=== PATIENT | male | born 1955 | race Caucasian/White ===

== ENCOUNTER 2020-03-14 15:32 | Emergency (ER) | payer OTHER, SELFPAY ==
[2020-03-14 15:52] VITALS: BP 134/79; PULSE 111; RESP 16; TEMP 36.8; O2SAT 96; BMI 40.6
--- NOTE | 2020-03-14 18:42 | CTR_ITS ---
PROCEDURE INFORMATION: Exam: CT Abdomen And Pelvis With Contrast Exam date and time: 03/14/2020 7:34 PM Age: 64 years old Clinical indication: Nausea; Abdominal pain; Localized; Right lower quadrant (rlq); Additional info: Abd pain TECHNIQUE: Imaging protocol: Computed tomography of the abdomen and pelvis with intravenous contrast. Total images: 279 Radiation optimization: All CT scans at this facility use at least one of these dose optimization techniques: automated exposure control; mA and/or kV adjustment per patient size (includes targeted exams where dose is matched to clinical indication); or iterative reconstruction. Contrast material: VISI 320; Contrast volume: 95 ml; Contrast route: INTRAVENOUS (IV); COMPARISON: No relevant prior studies available. RADIATION DOSE METRICS: Total DLP (mGy-cm): 1978.46 FINDINGS: Lungs: Limited assessment of the lung bases fails to reveal evidence for active cardiopulmonary process. Liver: Advanced diffuse fatty infiltration of the liver with hepatomegaly. No visible hepatic mass or cystic structure. Gallbladder and bile ducts: Partial hepatization of the gallbladder. No visible form cholelithiasis. No visible intra or extrahepatic biliary ectasia. Pancreas: Pancreas unremarkable. No visible pancreatic ductal ectasia. Spleen: Mild splenomegaly. Adrenal glands: Adrenal glands reveal a left adrenal nodule dimensions 40 mm x 20 mm x 29 mm. Right adrenal gland unremarkable. Kidneys and ureters: Proximal right ureterolithiasis measuring 24 mm x 7.5 mm x 12 mm. Marked hydronephrosis and proximal hydroureter to the high grade obstructing stone. The stone is located 3.5 cm from the right ureteropelvic junction. No visible residual nephrolithiasis right kidney. Examination also reveals a ill-defined hypodense structure within the posterior parenchyma of the right renal superior pole dimensions 12 mm in diameter. This does not have the appearance of a simple cyst and may represent a renal cell carcinoma. Recommend follow-up with MRI of the kidney for further assessment and characterization. Left kidney unremarkable. No hydronephrosis or perinephric fluid. No visible nephrolithiasis. No visible left ureterolithiasis. Moderate right perinephric stranding and proximal Patricia ureteral fat stranding. No visible urinoma. Stomach and bowel: Assessment of the hollow viscus fails to reveal evidence of active or acute pathology. Nonobstructed bowel pattern. No visible acute diverticulitis. No visible adynamic or reactive ileus. Appendix: The appendix is visualized and appears noninflamed. Intraperitoneal space: Unremarkable. No free air. No significant fluid collection. Vasculature: Portal vein patent. The abdominal aorta is nonaneurysmal. Mild arterial sclerotic disease. Lymph nodes: Prominent periportal lymph nodes. A dominant node measures 12 mm in the short axis. Clinical significance indeterminate. No visible generalized abdominal or pelvic lymphadenopathy. Urinary bladder: Bladder unremarkable. No visible bladder stone. Reproductive: Mild prostate hypertrophy. Bones/joints: No visible acute osseous abnormality. Degenerative disc disease L5/S1. Degenerative disease of the spine. Spine facet arthrosis. Soft tissues: Unremarkable. Other findings: Obesity. CT/CT abdomen pelvis w con* [id number] IMPRESSION: 1. Proximal right ureterolithiasis measuring 24 mm x 7.5 mm x 12 mm. Marked hydronephrosis and proximal hydroureter to the high grade obstructing stone. The stone is located 3.5 cm from the right ureteropelvic junction. No visible residual nephrolithiasis right kidney. 2. Examination also reveals a ill-defined hypodense structure within the posterior parenchyma of the right renal superior pole dimensions 12 mm in diameter. This does not have the appearance of a simple cyst and may represent a renal cell carcinoma. Recommend follow-up with MRI of the kidney for further assessment and characterization. 3. Prominent periportal lymph nodes. A dominant node measures 12 mm in the short axis. Clinical significance indeterminate. 4. Advanced fatty infiltration of the liver with hepatomegaly. 5. Splenomegaly. 6. Left adrenal nodule dimensions 40 mm x 20 mm x 29 mm. In patient with no cancer history, consider resection. In patient with cancer history, consider biopsy or PET-CT. (Valentín Mims, ACR White Paper, 2017). Radiation Dose CTDIVOL = (mGy): DLP = 1978.46 (mGy-cm)
--- NOTE | 2020-03-14 18:47 | ED_ITS ---
HPI - Abdominal Pain General: Chief Complaint: Abdominal Pain Stated Complaint: abd pain Time Seen by Provider: 03/14/20 18:10 Source: patient Mode of arrival: ambulatory Limitations: no limitations History of Present Illness: HPI narrative: 64-year-old male states been having right lower quadrant abdominal pain over the last 2 days. States started yesterday and let up through the night but is worsened today. States pain is a 6 out of 10 is worse with palpation. He has had some nausea denies any vomiting or diarrhea. He denies any fevers. MD elicited complaint: abdominal pain Location: RLQ Associated Symptoms: Denies chills, dysuria and fever(s) Review of Systems Const: Denies: fever(s), chills, body aches or change in appetite Eyes: Denies: blurry vision or eye discomfort ENMT: Denies: throat pain or dental pain Card: Denies: chest pain Resp: Denies: dyspnea GI: Reports: abdominal pain : Denies: dysuria Musc: Denies: neck pain or back pain Skin/Breast: Denies: rash Neuro: Denies: headache(s) Psych: Denies: depression Denny/Lymph: Denies: easy bruising All/Imm: Denies: urticaria Physical Exam Const: COMMON NORMALS: no acute distress, patient oriented x3 and healthy appearing HENMT: COMMON NORMALS: normocephalic and atraumatic HEAD & SCALP: normocephalic and atraumatic Eye: COMMON NORMALS: Equal, round and reactive pupils present and EOMs intact bilaterally PUPIL: Yes Equal, round and reactive pupils present Neck/C-Spine: COMMON NORMALS: full ROM and supple Chest: COMMONS NORMALS: normal inspection of the chest and normal palpation of entire chest wall Resp: COMMON NORMALS: normal respiratory effort, No retractions, No use of ac cessory muscles and clear to auscultation bilaterally AUSCULTATION: clear to auscultation bilaterally Cardio: COMMON NORMALS: regular rate, regular rhythm and No murmurs present (Cardio) RATE: regular rate RHYTHM: regular rhythm GI: COMMON NORMALS: Normal to inspection, nondistended, normoactive bowel sounds present, Soft to palpation and no masses PALPATION: Yes Soft to palpation OTHER: Slight right lower quadrant tenderness Extremity: COMMON NORMALS: normal to inspection and full ROM Neuro: COMMON NORMALS: patient oriented x3, moves all extremities and no focal motor deficits Psych: COMMON NORMALS: mental status grossly normal, Normal thought process present and cooperative THOUGHT PROCESS: Normal thought process present Skin: COMMON NORMALS: no rashes or lesions noted and no wounds GENERAL SKIN EXAM: no rashes or lesions noted Course Vital Signs: Vital signs: Vital Signs Temperature 98.2 F 03/14/20 15:52 Pulse Rate 90 03/14/20 21:05 Respiratory Rate 16 03/14/20 15:52 Blood Pressure 148/80 03/14/20 21:05 Pulse Oximetry 97 03/14/20 21:05 MDM - Abdominal Pain MDM Narrative: Medical decision making narrative: Patient presents here with a quite large kidney stone I spoke to Dr. Elizalde will get him on the OR schedule for Thursday. Patient here is completely pain-free and creatinine is normal. We will get patient set up for follow-up and informed him to n.p.o. after midnight on Thursday likely is can have the stone removed on Thursday. He is return to ER if he has any pain. He understands and agrees to plan. Lab Data: Labs: Lab Results 03/14/20 03/14/20 Range/Units 19:15 19:15 WBC 12.6 H (4.0-10.0) 10^3/ uL RBC 4.92 (4.1-5.3) 10^6/u L Hgb 14.3 (11.7-16.6) g/dL Hct 42.8 (42.0-52.0) % MCV 87.0 (80-94) fL MCH 29.1 (28.0-34.0) pg MCHC 33.4 (30.0-36.0) g/dL RDW 13.5 (12.1-15.1) % Plt Count 225 (130-400) 10^3/c mm MPV 8.7 (7.4-10.4) fL Neut % (Auto) 76.6 % Lymph % (Auto) 15.3 % [place] % (Auto) 6.8 % Eos % (Auto) 0.6 % Baso % (Auto) 0.2 % Neut # (Auto) 9.65 H (1.8-7.7) 10^3/u L Lymph # (Auto) 1.9 (0.8-4.8) 10^3/u L [place] # (Auto) 0.9 (0.2-0.9) 10^3/u L Eos # (Auto) 0.1 (0.0-0.8) 10^3/u L Baso # (Auto) 0.0 (0.0-0.1) 10^3/u L Nucleated RBC % (a uto) 0 % Nucleated RBCs # 0.0 /100WBC Sodium 132 L (136-145) mmol/L Potassium 3.8 (3.5-5.1) mmol/L Chloride 96 L (98-107) mmol/L Carbon Dioxide 26 (22-29) mmol/L Anion Gap 13.8 (5-19) BUN 16 (8-23) mg/dL Creatinine 1.6 H (0.7-1.2) mg/dL GFR Calculation 43.7 L (90-130) mL/min Glucose 181 H (65-115) mg/dL Calculated Osmolal ity 280 L (285-295) mOsm/k g Calcium 9.4 (8.5-10.5) mg/dL Total Bilirubin 0.8 (0.15-1.2) mg/dL AST 13 (0-40) U/L ALT 23 (0-41) U/L Alkaline Phosphata se 72 (40-130) IU/L Total Protein 7.4 (6.6-8.7) g/dL Albumin 3.9 (3.5-5.2) g/dL Globulin 3.5 (1.3-4.6) g/dL Lipase 21 (13-60) U/L Imaging Data ^: CT Abd/Pel: Radiologist's impression: [address] [address] [address] Scan Report Signed with Addenda Patient: Aiden Choudhury Unit #: [id number] : [id number] Age/Sex: 64 / M ADM Date: 03/14/20 Loc: ER Room/Bed: Attending Dr: Ordering Provider/Ordering MD: Veena Rangel MD Date of Service: 03/14/20 Procedure(s): CT abdomen pelvis w con* [id number] Accession Number(s): [id number] Report Number: [id number]/CT abdomen pelvis w con* [id number] THIS REPORT CONTAINS FINDINGS THAT MAY BE CRITICAL TO PATIENT CARE. The findings were verbally communicated via telephone conference with veena Rangel at 9:06 PM [employer] on 03/14/2020. The findings were acknowledged and understood. Radiation Dose CTDIVOL = (mGy): DLP = 1977.46 (mGy-cm) Addendum Dictated By: Corbin Damon Addendum Signed By: Corbin Damon Signed Date/Time: 03/14/20 211 7 Addendum Cosigned By: PROCEDURE INFORMATION: Exam: CT Abdomen And Pelvis With Contrast Exam date and time: 03/14/2020 7:34 PM Age: 64 years old Clinical indication: Nausea; Abdominal pain; Localized; Right lower quadrant (rlq); Additional info: Abd pain TECHNIQUE: Imaging protocol: Computed tomography of the abdomen and pelvis with intravenous contrast. Total images: 279 Radiation optimization: All CT scans at this facility use at least one of these dose optimization techniques: automated exposure control; mA and/or kV adjustment per patient size (includes targeted exams where dose is matched to clinical indication); or iterative reconstruction. Contrast material: VISI 320; Contrast volume: 95 ml; Contrast route: INTRAVENOUS (IV); COMPARISON: No relevant prior studies available. RADIATION DOSE METRICS: Total DLP (mGy-cm): 1977.46 FINDINGS: Lungs: Limited assessment of the lung bases fails to reveal evidence for active cardiopulmonary process. Liver: Advanced diffuse fatty infiltration of the liver with hepatomegaly. No visible hepatic mass or cystic structure. Gallbladder and bile ducts: Partial hepatization of the gallbladder. No visible form cholelithiasis. No visible intra or extrahepatic biliary ectasia. Pancreas: Pancreas unremarkable. No visible pancreatic ductal ectasia. Spleen: Mild splenomegaly. Adrenal glands: Adrenal glands reveal a left adrenal nodule dimensions 40 mm x 20 mm x 29 mm. Right adrenal gland unremarkable. Kidneys and ureters: Proximal right ureterolithiasis measuring 24 mm x 7.5 mm x 12 mm. Marked hydronephrosis and proximal hydroureter to the high grade obstructing stone. The stone is located 3.5 cm from the right ureteropelvic junction. No visible residual nephrolithiasis right kidney. Examination also reveals a ill-defined hypodense structure within the posterior parenchyma of the right renal superior pole dimensions 12 mm in diameter. This does not have the appearance of a simple cyst and may represent a renal cell carcinoma. Recommend follow-up with MRI of the kidney for further assessment and characterization. Left kidney unremarkable. No hydronephrosis or perinephric fluid. No visible nephrolithiasis. No visible left ureterolithiasis. Moderate right perinephric stranding and proximal Patricia ureteral fat stranding. No visible urinoma. Stomach and bowel: Assessment of the hollow viscus fails to reveal evidence of active or acute pathology. Nonobstructed bowel pattern. No visible acute diverticulitis. No visible adynamic or reactive ileus. Appendix: The appendix is visualized and appears noninflamed. Intraperitoneal space: Unremarkable. No free air. No significant fluid collection. Vasculature: Portal vein patent. The abdominal aorta is nonaneurysmal. Mild arterial sclerotic disease. Lymph nodes: Prominent periportal lymph nodes. A dominant node measures 12 mm in the short axis. Clinical significance indeterminate. No visible generalized abdominal or pelvic lymphadenopathy. Urinary bladder: Bladder unremarkable. No visible bladder stone. Reproductive: Mild prostate hypertrophy. Bones/joints: No visible acute osseous abnormality. Degenerative disc disease L5/S1. Degenerative disease of the spine. Spine facet arthrosis. Soft tissues: Unremarkable. Other findings: Obesity. CT/CT abdomen pelvis w con* [id number] IMPRESSION: 1. Proximal right ureterolithiasis measuring 24 mm x 7.5 mm x 12 mm. Marked hydronephrosis and proximal hydroureter to the high grade obstructing stone. The stone is located 3.5 cm from the right ureteropelvic junction. No visible residual nephrolithiasis right kidney. 2. Examination also reveals a ill-defined hypodense structure within the posterior parenchyma of the right renal superior pole dimensions 12 mm in diameter. This does not have the appearance of a simple cyst and may represent a renal cell carcinoma. Recommend follow-up with MRI of the kidney for further assessment and characterization. 3. Prominent periportal lymph nodes. A dominant node measures 12 mm in the short axis. Clinical significance indeterminate. 4. Advanced fatty infiltration of the liver with hepatomegaly. 5. Splenomegaly. 6. Left adrenal nodule dimensions 40 mm x 20 mm x 29 mm. In patient with no cancer history, consider resection. In patient with cancer history, consider biopsy or PET-CT. (Valentín Mims, ACR White Paper, 2017). Discharge Plan Discharge Patient Disposition: Home Clinical Impression: Kidney stone Condition: Stable Prescriptions: [place] 5-325 mg tablet 1 tab PO Q6H PRN (Reason: pain) Qty: 14 RF: 0 Zofran 4 mg tablet 4 mg PO QID PRN (Reason: nausea and vomiting) Qty: 14 RF: 0 Discharge Orders: Discharge ED (Routine); Ordered 03/14/20 Ordered By: Veena Rangel Referrals: Max Elizalde MD [Physician] - 1-3 days Discharge Diet: Advance as tolerated Discharge Activity: Resume usual activity Patient Instructions: Kidney Stones (ED) Coding Level of Care Code ED Exceptional Needs Teacher for Chg Fwd Exam Comprehensive
[2020-03-14] MEDS: sodium chloride 0.9% 1,000 ML 999 ML IV (19:18)
[2020-03-14 19:23] VITALS: BP 120/78; PULSE 98; O2SAT 96
[2020-03-14 19:29] LABS: Basophils % 0.2 %; Eosinophils # 0.1 10^3/uL (0.0-0.8); Eosinophils % 0.6 %; Hematocrit 42.8 % (42.0-52.0); Hemoglobin 14.3 g/dL (11.7-16.6); Lymphocytes # 1.9 10^3/uL (0.8-4.8); Lymphocytes % 15.3 %; Mean Corpuscular HGB Conc 33.4 g/dL (30.0-36.0); Mean Corpuscular Hemoglobin 29.1 pg (28.0-34.0); Mean Platelet Volume 8.7 fL (7.4-10.4); Monocytes # 0.9 10^3/uL (0.2-0.9); Monocytes % 6.8 %; Neutrophils # 9.65 10^3/uL (1.8-7.7); Neutrophils % 76.6 %; Nucleated Red Blood Cells % 0 %; Platelet Count 225 10^3/cmm (130-400); Red Blood Count 4.92 10^6/uL (4.1-5.3); Red Cell Distribution Width 13.5 % (12.1-15.1); White Blood Count 12.6 10^3/uL (4.0-10.0)
[2020-03-14 19:50] LABS: Alanine Aminotransferase 23 U/L (0-41); Albumin Level 3.9 g/dL (3.5-5.2); Alkaline Phosphatase 72 IU/L (40-130); Anion Gap 13.8 (5-19); Aspartate Amino Transferase 13 U/L (0-40); Blood Urea Nitrogen 16 mg/dL (8-23); Calcium 9.4 mg/dL (8.5-10.5); Carbon Dioxide 26 mmol/L (22-29); Chloride 96 mmol/L (98-107); Globulin 3.5 g/dL (1.3-4.6); Glomerular Filtration Rate 43.7 mL/min (90-130); Glucose 181 mg/dL (65-115); Lipase 21 U/L (13-60); Osmolality Calculated 280 mOsm/kg (285-295); Potassium 3.8 mmol/L (3.5-5.1); Sodium 132 mmol/L (136-145); Total Bilirubin 0.8 mg/dL (0.15-1.2); Total Protein 7.4 g/dL (6.6-8.7)
--- NOTE | 2020-03-14 19:52 | PC.PHAR ---
pt states he takes benicar (unknown strength), metformin 1000 mg daily, glimeperide (unknown strength) 2 tablets daily, Januvia 100mg daily, Lantus 35 units QAM & 40 units QPM. Tried contacting and transferred multiple times without any help. [facility].
[2020-03-14 20:24] VITALS: BP 148/80; PULSE 90; O2SAT 96
[2020-03-14] MEDS: iodixanol 320 mg/mL 100mL Btl IV (20:42)
[2020-03-14 21:05] VITALS: BP 148/80; PULSE 90; O2SAT 97
[2020-03-14 21:24] LABS: Add Urine Microscopic? YES; Bilirubin Urine Neg (Negative); Glucose Urine UA Trace (Normal); Ketones Urine Negative (Negative); Leukocyte Esterase Urine Negative (Negative); Nitrate Urine Negative (Negative); Protein Urine Neg (Negative); Urine Appearance Clear (CLEAR); Urine Color Yellow (Yellow); Urobilinogen Urine 1 mg/dL (Negative); pH Urine 5 (5-7)
[2020-03-14 21:26] LABS: Blood Urine 2+ (Negative); WBC Urine 0-4 /hpf (0-5)
[2020-03-14 21:27] LABS: Add Urine Culture? No; Bacteria Urine TRACE /hpf; Squamous Epithelial Cell Urine 0-4 /hpf (0-5)
[2020-03-14 21:43] VITALS: BP 148/80; PULSE 89; O2SAT 97
--- NOTE | 2020-03-15 14:07 | DCPLANNER ---
production quality manager had message to schedule a follow up appointment for patient with Dr. Elizalde. production quality manager called the office of Dr. Elizalde, spoke with Emma. Patient had a follow up appointment scheduled for 03.15.20 and patient did attend the appointment.
[2020-03-15 22:16] LABS: Coronavirus Test Green County Not Detected
== END 2020-03-14 21:44 | disposition home or self-care (01) ==
PROVIDERS: Physician Assistant; Emergency Provider Emergency Medicine
DX: N20.0 Calculus of kidney (principal)
CPT/HCPCS: 12345; 74177; 80053; 81001; 83690; 85025; 87635; 96360; 99283; J7030; Q9967

== ENCOUNTER 2020-03-15 10:17 | Outpatient (CLI) | payer OTHER, SELFPAY ==
--- NOTE | 2020-03-15 10:19 | XR_ITS ---
WS: [id number] KUB, 03/15/2020 Clinical Data: KIDNEY STONE Comparison: CT abdomen and pelvis, 03/14/2020 Findings: There is still contrast material within the dilated right renal pelvis. There is a right renal nephro gram. The right ureter is dilated down to the right fourth transverse process. There is contrast in t he bladder. The left kidney shows a mild nephrogram. XR/XR KUB [id number] Impression: 1. Dilated right renal pelvis and proximal right ureter. 2. The right ureteral calculus is probably at the level of the right fourth tra nsverse process.
== END 2020-03-15 10:18 | disposition home or self-care (01) ==
LOC: RAD 10:19
PROVIDERS: PCP Family Medicine; Visit Provider Nurse Practitioner Family
DX: N20.0 Calculus of kidney (principal); N20.1 Calculus of ureter
CPT/HCPCS: 74018; 81003

== ENCOUNTER 2020-03-19 13:08 | Day surgery (SDC) | payer OTHER, SELFPAY ==
[2020-03-16 10:41] VITALS: BMI 40.6
[2020-03-19] VITALS (8 sets, daily range): BP systolic 133–156; BP diastolic 73–90; PULSE 86–96; RESP 15–18; TEMP 36.3–36.4; O2SAT 94–99
--- NOTE | 2020-03-19 13:14 | XRR_ITS ---
PROCEDURE INFORMATION: Exam: XR Abdomen, 1 View Exam date and time: 03/19/2020 1:15 PM Age: 64 years old Clinical indication: Screening exam; Other: Preop right eswl; Prior surgery; Surgery type: Litho TECHNIQUE: Imaging protocol: XR of the abdomen. Views: Frontal supine view of the abdomen. 1 View. COMPARISON: CR XR KUB [id number] 03/15/2020 10:28 AM FINDINGS: Gastrointestinal tract: Normal. No bowel dilation. Organs: There is residual contrast material in the hydronephrotic left renal pelvis and dilated proximal right ureter. On the recent CT scan a calculus was seen in the right ureter at the L3-L4 level but it is difficult to identify on these radiographs due to the presence of the contrast. Bones/joints: Degenerative changes are present in the spine with joint space narrowing and sclerosis. XR/XR KUB [id number] IMPRESSION: Persistent right hydronephrosis and proximal right hydroureter.
--- NOTE | 2020-03-19 14:09 | ANES.PREANE2 ---
Pre-Anesthetic Assessment Pre-Anesthetic Assessment: Height/Weight: Height 1.75 m Weight 124.738 kg Temp Pulse Resp BP Pulse Ox 97.5 F L 89 18 145/90 97 03/19/20 13:49 03/19/20 13:49 03/19/20 13:49 03/19/20 13:49 03/19/20 13:49 Preop Diagnosis: Right proximal obstructing ureteral stone Proposed Procedure: Operation Date: 03/19/20 14:40 Proposed Procedures p right Cystoscopy [id number](Right) - Max Elizalde MD s Ureteral Stent Placement(Not Applicable) - Max Elizalde MD s ESWL(Not Applicable) - Max Elizalde MD Was Beta Zeynep taken within 24 hours: N/A Last intake: Intake Last Liquid Date 03/19/20 Last Liquid Time 11:00 Last Solid Date 03/18/20 Last Solid Time 14:00 Social: Social History: No alcohol and No tobacco Exam: Pre-Anes Outpt Exam: alert, oriented x 3, clear to auscultation bilaterally and regular rate & rhythm Airway: Submandibular: WNL Cervical ROM: WNL MP: 2 Dentition: Full CV/HEM: CV/HEM: HTN : Comments: Kidney stones Metabolic: Metabolic: DM and Morbid obesity Anesthetic Plan: ASA status: 3 Anesthesia: General PFS Anesthesia PFSH: Medical History Right ureteral stone Family History Other Cancer Diabetes Social History Smoking and tobacco status: current every day smoker cigarettes Alcohol intake: never Marital status: Current occupational status: retired Data Anesthesia Cardiac Studies: No Data to Display
[2020-03-19 14:10] LABS: Glucose Point of Care 137 mg/dL (70-110)
[2020-03-19] MEDS: sodium chloride 0.9% 1,000 ML 30 ML IV (14:11)
--- NOTE | 2020-03-19 14:51 | W.PM.OPSUD ---
Surgery/Procedure H&P Update DATE OF PROCEDURE: March 19, 2020 DATE H&P PERFORMED: 03/19/20 H&P UPDATE INFORMATION: I have reviewed H&P completed within last 30 days, I have examined patient prior to procedure, No changes to prior documentation and H&P is in [facility] on date indicated CHANGES TO PREVIOUS DOCUMENTATION: HPI: Patient still experiencing some right-sided pain from the stone identified on CT scan and follow-up KUB in the office when seen by Nisreen Ma. No fever or chills. No spontaneous passage. KUB from this morning was reviewed and shows that he still has a significant dilated system with retained contrast from his CT scan last week. The stone is not readily identifiable but it appears to be located at the point of distal contrast location. Past medical family social history unchanged. Denies any ongoing blood thinners aspirin Aleve Motrin etc. Review of systems: Constitutional: No fever no chills HEENT: No change in vision change in hearing Cardiovascular: Denies chest pains or palpitations Respiratory: No shortness of breath wheezes or labored respiration. Gastrointestinal: Denies nausea or vomiting. No changes in bowel habits Musculoskeletal: No deformity. Skin: Denies jaundice rashes or lesions Neurologic: Denies unilateral weakness Psychiatric: Denies anxiety or changes in mental status Hematologic lymphatic: Denies abnormal bruising or bleeding. Physical exam: General: Alert, no acute distress, pleasant cooperative throughout exam HEENT atraumatic normocephalic Neck: Good range of motion no obvious masses Cardiovascular: Regular rate and rhythm. No obvious murmurs. Peripheral vascular: No significant edema Respiratory: Unlabored, no audible wheezes, good air movement., Abdomen: Soft, tenderness in his right upper quadrant right CVA area. Normal active bowel sounds Skin: No jaundice rashes or lesions noted. Neurologic: No slurred speech, seizure-like activity: Hematologic lymphatic: No bruises no active bleeding Psychiatric: Normal mental status, good cognitive function. Impression: Large right mid ureteral stone with obstruction and retained contrast Plan: Extracorporeal shockwave lithotripsy to right mid ureteral stone with stent placement. PREOP DIAGNOSIS: Right proximal obstructing ureteral stone PLANNED PROCEDURE: Operation Date: 03/19/20 14:40 Proposed Procedures p right Cystoscopy [id number](Right) - Max Elizalde MD s Ureteral Stent Placement(Not Applicable) - Max Elizalde MD s ESWL(Not Applicable) - Max Elizalde MD
--- NOTE | 2020-03-19 15:01 | PM.OP ---
Operative Report Date of procedure: March 19, 2020 Pre-op Diagnosis: Right proximal obstructing ureteral stone Post-op diagnosis: same Procedure Done: 1. Extracorporeal shockwave lithotripsy, RIGHT ureteral calculus 2. Cystoscopy, right ureteral stent placement Implants: 7 Guatem[place] by 28 cm double-pigtail stent no string Pathology: none sent Surgeon: Fide First Assistant Manager: Lithotripsy Registration Specialist: Juan Diego Tarango Anesthesia: General Estimated blood loss: None Urine output: Not measured Complications: None Findings: Stone was not readily identifiable on fluoroscopy but the column of contrast retained after last week CT scan pointed to the level of the stone identified on CT scan. The exact location of the stone was not absolute and for that reason it was decided to inject contrast from below which showed the large stone consistent with the findings seen on CT scan and allowed direct focus on the stone. 2500 shocks administered with excellent change. Contrast injected periodically to confirm location and response. Condition: stable Disposition: PACU Brief History: Mr. Choudhury is a very pleasant 64-year-old white male who was seen in the emergency department last week with a large roughly 2 cm right ureteral calculus with severe obstructive changes. No evidence of infection. Renal function was well-preserved. He was followed up by my nurse practitioner Nisreen Ma on the following day or so and ultimately was decided to proceed with shockwave therapy with stent placement. On KUB preoperatively today there was still retained contrast. Procedure: After routine preoperative evaluation examination and obtaining of informed consent he was taken to the operating suite on 03/19/2020 where general anesthesia was administered without difficulty after appropriate timeout was performed, SCDs confirmed to be functioning, preoperative antibiotics administered, beta-lulu protocol confirmed. Prepped and draped in usual sterile fashion in dorsolithotomy position paying careful attention to avoiding pressure points. 21 Guatem[place] cystoscope with 30 degree lens was introduced to the urethral meatus and advanced into the bladder under videoscopy. Bladder was systematically examined. No stone was identified. A right retrograde ureteropyelogram was performed: Contrast was injected through an 8 [place] cone-tipped catheter demonstrating a normal distal course and caliber of the ureter. A large filling defect was noted at the proximal ureter in the expected position consistent with a stone seen on CT scan. Only a small amount of contrast could be manipulated proximal to the stone. This position was maintained with the cystoscope removed and the open-ended ureteral catheter left indwelling for periodic reinjection of contrast to confirm position. The stone was demonstrated to show significant early change with shockwave therapy and a total of 2500 shocks were administered with excellent change as confirmed via contrast injection and easily up into the kidney with no longer persistence of a filling defect consistent with a stone. Flexible tip guidewire was advanced up the right ureter and easily bypassed the area of therapy. A 7 [place] by 28 cm double-pigtail stent was advanced over the guidewire through the cystoscope into appropriate position as confirmed via fluoroscopy and cystoscopy. Bladder was drained. The final shockwaves were administered and the procedure completed. He tolerated the procedure well without complications and was awakened in the operating room and returned to the recovery in stable condition. PLANS: 1. Anticipate discharge from outpatient surgery 2. Follow-up with CT scan stone protocol in approximately 2 weeks. 3. When BMP is available and potassium is confirmed in the normal range we will initiate POTASSIUM CITRATE for dissolution therapy and uric acid stone prevention strategy.
[2020-03-19] MEDS: iohexol 300 mg/mL 50 mL Btl (OR ONLY) XX (15:36)
[2020-03-19 16:01] LABS: Blood Urea Nitrogen 18 mg/dL (8-23); Calcium 9.3 mg/dL (8.5-10.5); Carbon Dioxide 23 mmol/L (22-29); Chloride 96 mmol/L (98-107); Glucose 146 mg/dL (65-115); Osmolality Calculated 275 mOsm/kg (285-295); Sodium 130 mmol/L (136-145)
[2020-03-19 16:12] LABS: Anion Gap 15.1 (5-19); Potassium 4.1 mmol/L (3.5-5.1)
--- NOTE | 2020-03-19 16:59 | ANE.PACU2 ---
Inpatient post-anesthesia follow up: Airway intact: Yes Vital signs: Temperature 97.6 F Pulse Rate 86 Respiratory Rate 18 Blood Pressure 144/73 Pulse Oximetry 97 Oxygen Delivery Me thod Room Air Oxygen Flow Rate 8 Fraction of Inspir ed Oxygen Hydration adequate: Yes Nausea and vomiting: No Pain level: 1 Mental status: Baseline
== END 2020-03-19 17:11 | disposition home or self-care (01) ==
PROVIDERS: PCP Family Medicine; Visit Provider Urology
PROC: 0TJB8ZZ Inspection of Bladder, Via Natural or Artificial Opening Endoscopic (ICD-10-PCS; CPT 52000; principal; 2020-03-19 14:40)
PROC: (CPT 50605; 2020-03-19 14:40)
PROC: (CPT 50590; 2020-03-19 14:40)
DX: N20.1 Calculus of ureter (principal); I10 Essential (primary) hypertension; E11.9 Type 2 diabetes mellitus without complications; E66.01 Morbid (severe) obesity due to excess calories; Z68.41 Body mass index [BMI] 40.0-44.9, adult; F17.210 Nicotine dependence, cigarettes, uncomplicated; Z79.891 Long term (current) use of opiate analgesic
CPT/HCPCS: 50590; 52332; 12345; 36415; 36416; 74018; 80048; 82365; 82962; 88300; C2625; J0690; J2405; J2704; J2710; J3010; J3490; J7030

== ENCOUNTER 2020-04-03 08:48 | Outpatient (CLI) | payer OTHER, SELFPAY ==
--- NOTE | 2020-04-03 10:30 | CT_ITS ---
WS: [id number] CT ABDOMEN PELVIS TECHNIQUE: Noncontrast CT of the abdomen and pelvis with coronal and sagittal reformatted images. CLINICAL INFORMATION: URETERAL STONE COMPARISON: CT March 14, 2020 DLP: 2010.[address] scans at [facility] use at least one of these dose optimization techniques: automat ed exposure control; mA and/or kV adjustment per patient size (includes targeted exams where dose is matched to clinical indication); or iterative reconstruction. FINDINGS: Diffuse fatty infiltration the liver. Hepatomegaly. Splenomegaly. Stable left adrenal nodules. Interv al placement of right double-J ureteral stent in good position. Fragmented right ureteral calculus al dominic the proximal right ureter and distal ureter near the UVJ. No significant hydronephrosis today. Re sidual perinephric inflammatory stranding. Stable indeterminate low-attenuation lesion involving the superior pole right kidney. Prominent periportal and upper abdominal lymph nodes nonspecific but may be reactive. No hydronephrosis in the left kidney. Small fragmented stones in the bladder. Prominent prostate raheem uring 4.1 cm in maximum dimension. Normal colon. Normal caliber abdominal aorta. Fatty atrophy of the pancreas. Small splenule. No free fluid in the abdomen or pelvis. Lung bases are well aerated. Small fibrotic opacity right lower lobe. Disc osteophyte complexes L3-L5 with moderate central canal steno sis. Fusion of the L5-S1 disc space. CT/CT kidney stone [id number] IMPRESSION: 1. Right double-J ureteral stent in good position. Hydronephrosis has essentia lly resolved. 2. Residual inflammatory stranding about the right kidney. Indeterminant low-a ttenuation lesion upper pole right kidney. Small neoplasm not excluded. 3. Fragmented right ureteral calculus along the proximal and distal stent desc ribed above. Tiny calculi within the bladder. 4. Stable left adrenal nodules 5. No other significant changes from previous.
== END 2020-04-03 08:49 | disposition home or self-care (01) ==
PROVIDERS: PCP Family Medicine; Visit Provider Urology
DX: N20.1 Calculus of ureter (principal); Z96.0 Presence of urogenital implants
CPT/HCPCS: 74176; 81003; 82365; 87635; 88300

== ENCOUNTER 2020-04-09 12:55 | Day surgery (SDC) | payer OTHER, SELFPAY ==
[2020-04-06 13:40] VITALS: BMI 40.6
--- NOTE | 2020-04-09 | SCC_ITS ---
Procedure Done: 1. Cystoscopy with removal of right ureteral stent 2. Right ureteroscopy, laser lithotripsy and stone fragment removal, ureteral stent placement (7 Vietnamese by 28 cm double-pigtail without string 28.9 seconds of fluoroscopic guidance, for a cumulative dose of 11.98 mGy, was provided to Dr. Elizalde by the radiology department. C-arm images of the abdomen were saved for the patient's permanent record. [facility]
[2020-04-09] MEDS: sodium chloride 0.9% 1,000 ML 30 ML IV (13:00)
[2020-04-09 13:14] VITALS: BP 152/90; PULSE 75; RESP 18; TEMP 36.1; O2SAT 97
[2020-04-09 13:31] LABS: Glucose Point of Care 216 mg/dL (70-110)
--- NOTE | 2020-04-09 13:40 | P.ANESASSM_ITS ---
Pre-Anesthetic Assessment Pre-Anesthetic Assessment: Height/Weight: Height 1.75 m Weight 124.738 kg Temp Pulse Resp BP Pulse Ox 97.0 F L 75 18 152/90 97 04/09/20 13:14 04/09/20 13:14 04/09/20 13:14 04/09/20 13:14 04/09/20 13:14 Preop Diagnosis: Persistent right mid ureteral calculus fragment Proposed Procedure: Operation Date: 04/09/20 14:25 Proposed Procedures p Cystoscopy 55954 00538 24968 N20.1(Not Applicable) - Max Elizalde MD s Retrograde Pyelogram(Right) - MD kelvin Wu Ureteroscopy(Right) - MD kelvin Wu Laser Lithotripsy(Not Applicable) - Max Elizalde MD s Ureteral Stent Exchange(Not Applicable) - Max Elizalde MD Familial anesthetic complications: None Was Beta Zeynep taken within 24 hours: N/A Last intake: Intake Gatorade at 1130 Last Liquid Date 04/09/20 Last Liquid Time 12:00 Last Solid Date 04/08/20 Last Solid Time 21:30 Social: Social History: Tobacco and No alcohol Exam: Pre-Anes Outpt Exam: alert, oriented x 3, clear to auscultation bilaterally and regular rate & rhythm Airway: Cervical ROM: WNL MP: 2 Dentition: Other (missing teeth) CV/HEM: CV/HEM: HTN Metabolic: Metabolic: DM and Morbid obesity Anesthetic Plan: ASA status: 3 Anesthesia: General Risk of > 500 ml b lood loss (7ml/kg in children): No PFSH Anesthesia PFSH: Medical History Right ureteral stone Family History Other Cancer Diabetes Social History Smoking and tobacco status: current every day smoker cigarettes Alcohol intake: never Marital status: Current occupational status: retired Data Anesthesia Other Labs: Laboratory Results - last 48 hr 04/09/20 13:24 POC Glucose 216 H Cardiac Studies: No Data to Display
[2020-04-09 14:02] LABS: Basophils % 0.4 %; Eosinophils # 0.5 10^3/uL (0.0-0.8); Eosinophils % 6.1 %; Hematocrit 39.6 % (42.0-52.0); Hemoglobin 13.2 g/dL (11.7-16.6); Lymphocytes % 27.1 %; Mean Corpuscular HGB Conc 33.3 g/dL (30.0-36.0); Mean Corpuscular Hemoglobin 29.3 pg (28.0-34.0); Mean Corpuscular Volume 87.8 fL (80-94); Mean Platelet Volume 8.8 fL (7.4-10.4); Monocytes # 0.4 10^3/uL (0.2-0.9); Monocytes % 4.7 %; Neutrophils # 4.61 10^3/uL (1.8-7.7); Neutrophils % 61.4 %; Nucleated Red Blood Cells % 0 %; Platelet Count 223 10^3/cmm (130-400); Red Blood Count 4.51 10^6/uL (4.1-5.3); Red Cell Distribution Width 13.4 % (12.1-15.1); White Blood Count 7.5 10^3/uL (4.0-10.0)
[2020-04-09 14:24] LABS: Alanine Aminotransferase 27 U/L (0-41); Albumin Level 3.9 g/dL (3.5-5.2); Alkaline Phosphatase 80 IU/L (40-130); Anion Gap 14.8 (5-19); Aspartate Amino Transferase 16 U/L (0-40); Blood Urea Nitrogen 14 mg/dL (8-23); Carbon Dioxide 25 mmol/L (22-29); Chloride 99 mmol/L (98-107); Globulin 3.2 g/dL (1.3-4.6); Glomerular Filtration Rate 97.3 mL/min (90-130); Glucose 189 mg/dL (65-115); Osmolality Calculated 286 mOsm/kg (285-295); Potassium 3.8 mmol/L (3.5-5.1); Sodium 135 mmol/L (136-145); Total Bilirubin 0.5 mg/dL (0.15-1.2); Total Protein 7.1 g/dL (6.6-8.7)
--- NOTE | 2020-04-09 14:32 | W.PM.OPSUD ---
Surgery/Procedure H&P Update DATE OF PROCEDURE: April 09, 2020 DATE H&P PERFORMED: 04/03/20 H&P UPDATE INFORMATION: I have reviewed H&P completed within last 30 days, I have examined patient prior to procedure, No changes to prior documentation and H&P is in [facility] on date indicated PREOP DIAGNOSIS: Persistent right mid ureteral calculus fragment PLANNED PROCEDURE: Operation Date: 04/09/20 14:25 Proposed Procedures p Cystoscopy 32710 33589 78172 N20.1(Not Applicable) - Max Elizalde MD s Retrograde Pyelogram(Right) - MD kelvin Wu Ureteroscopy(Right) - MD kelvin Wu Laser Lithotripsy(Not Applicable) - MD kelvin Wu Ureteral Stent Exchange(Not Applicable) - Max Elizalde MD
--- NOTE | 2020-04-09 14:38 | P.OP_ITS ---
Operative Report Date of procedure: April 09, 2020 Pre-op Diagnosis: Persistent right mid ureteral calculus fragment Post-op diagnosis: same Procedure Done: 1. Cystoscopy with removal of right ureteral stent 2. Right ureteroscopy, laser lithotripsy and stone fragment removal, ureteral stent placement (7 Citizen [place] by 28 cm double-pigtail without string Pathology: Stone fragments Surgeon: Fide Anesthesia: General Estimated blood loss: Minimal Urine output: Not measured Complications: None Findings: Stent easily removed. Stone fragment identified in expected position. Further fragmented with laser lithotripsy. Fragments sent for pathologic evaluation. No stent Condition: stable Disposition: PACU Brief History: Mr. Choudhury is a very pleasant 64-year-old white male recently treated with a very large left radiolucent stone in the mid ureter. Measured more than 3 cm in size. On follow-up CT scan (again radiolucent) almost all the stone was gone but there was still one fragment felt to be slightly too large to easily pass and for that reason he is admitted now for endoscopic treatment of that stone. Ureteroscopy was elected in order to assess the ureter in hopes of leaving the stent out and also ensuring visual clearance of all stone fragments to avoid repeat CT scan to assess that. Procedure: After routine preoperative evaluation examination and obtaining of informed consent he was taken to the operating suite on 04/09/2020 where general anesthesia was administered without difficulty after appropriate timeout was performed, SCDs confirmed to be functioning, preoperative antibiotics administered, beta- lulu protocol confirmed. Prepped and draped in usual sterile fashion in dorsal lithotomy position paying careful attention to avoiding pressure points. 21 Citizen [place] cystoscope with 30 degree lens was introduced into the urethra meatus and advanced into the bladder to videoscopy. A large amount of small fragments were identified in the bladder from the previous ESWL and these were flushed free from the bladder with an Ellik evacuator. A flexible tip guidewire was advanced up the right ureter next to the stent easily bypassing the area of concern and curling in the area of the upper pole calyx. The stent was then withdrawn under fluoroscopic monitoring. The proximal end easily uncurled. The wire was secured to the drapes as a safety wire and a 7.5 Citizen [place] offset semirigid ureteroscope was advanced up the right ureter next to the wire, to the level of stone which was encountered in its expected position. The stone fragment was too large to pull out intact and for that reason was fragmented with a 365 ?m holmium laser fiber into small pieces, small enough pass easily. At the completion of the procedure the inspection showed no large fragments remaining. It did require quite a bit of lasering in order to clear the stones into small fragments and for that reason it was decided to leave a stent indwelling. The cystoscope was backloaded over the guidewire and a 7 [place] by 28 cm double- pigtail stent was advanced over the guidewire through the cystoscope into appropriate position as confirmed via fluoroscopy and cystoscopy. The bladder was drained specimens collected and the procedure completed. He tolerated procedure well without complications he was awakened in the operating room and returned to the recovery room in stable condition. PLANS: 1. Start POTASSIUM CITRATE 10 mEq 2 pills twice a day to help with the small fragment dissolution. 2. Follow-up in approximately 2 weeks for a BMP and possible cystoscopy and stent removal.
[2020-04-09] MEDS: levofloxacin-dextrose 5 % 500 MG/100 ML PREMIX 100 MG IV (14:48)
--- NOTE | 2020-04-09 14:59 | SC_ITS ---
WS: [id number] C-ARM RADIOGRAPHS ABDOMEN; 3 IMAGES HISTORY: surgery COMPARISON: None available. Intraoperative imaging during RIGHT ureteral stent placement. SC/C-arm FL for Urology IMPRESSION: Intraoperative imaging during RIGHT double pigtail ureteral stent placement.
[2020-04-09 16:11] VITALS: BP 156/92; PULSE 92; RESP 16; TEMP 37; O2SAT 100
[2020-04-09 16:15] VITALS: BP 161/98; PULSE 93; RESP 18; O2SAT 100
--- NOTE | 2020-04-09 16:16 | SUR.PHASEI ---
PT AWAKE ALERT VERBALIZES APPROP VSS IV PATENT PT VERBALLY REQUESTS TO URINATE.PT GIVEN A URINAL. MONITOR SR. PT ON RA.
[2020-04-09 16:20] VITALS: BP 136/86; PULSE 94; RESP 19; TEMP 37; O2SAT 95
--- NOTE | 2020-04-09 16:20 | P.PCN_ITS ---
PACU note PACU note: VSS, Good respiratory effort, report to STABLE MANAGER Post-Anesthesia Exam: awake
--- NOTE | 2020-04-09 16:20 | PM.PACU ---
PACU note PACU note: VSS, Good respiratory effort, report to PACKAGE MAKER Post-Anesthesia Exam: awake
[2020-04-09 16:29] VITALS: BP 142/93; PULSE 87; RESP 18; TEMP 37; O2SAT 97
--- NOTE | 2020-04-09 16:35 | SUR.PHASEI ---
1625 PT AWAKE ALERT TRYING TO USE URINAL, PT REQUESTS WATER TO SIP ON PT TO OPS HANDOFF AT BEDSIDE PT TAKING SIPS OF WATER.
[2020-04-09 16:44] VITALS: BP 145/92; PULSE 87; RESP 18; TEMP 37; O2SAT 97
[2020-04-14 19:08] LABS: Stone Source RIGHT URETER
== END 2020-04-09 17:07 | disposition home or self-care (01) ==
PROVIDERS: PCP Family Medicine; Visit Provider Urology
PROC: 0TJB8ZZ Inspection of Bladder, Via Natural or Artificial Opening Endoscopic (ICD-10-PCS; CPT 52000; principal; 2020-04-09 14:25)
PROC: (CPT 74420; 2020-04-09 14:25)
PROC: 0TJ98ZZ Inspection of Ureter, Via Natural or Artificial Opening Endoscopic (ICD-10-PCS; CPT 52351; 2020-04-09 14:25)
PROC: (CPT 52356; 2020-04-09 14:25)
PROC: (CPT 52356; 2020-04-09 14:25)
DX: N20.1 Calculus of ureter (principal); I10 Essential (primary) hypertension; E11.9 Type 2 diabetes mellitus without complications; E66.01 Morbid (severe) obesity due to excess calories; Z68.41 Body mass index [BMI] 40.0-44.9, adult; F17.210 Nicotine dependence, cigarettes, uncomplicated; Z79.84 Long term (current) use of oral hypoglycemic drugs
CPT/HCPCS: 52356; 12345; 36416; 76000; 80053; 82365; 82962; 85025; 88300; C2625; J0330; J1956; J2370; J2405; J2704; J2710; J3010; J3490; J7030

== ENCOUNTER 2020-04-09 21:20 | Emergency (ER) | payer OTHER, SELFPAY ==
[2020-04-09 22:14] VITALS: BP 169/86; PULSE 93; RESP 14; TEMP 36.6; O2SAT 96; BMI 40.6
--- NOTE | 2020-04-09 22:44 | ED_ITS ---
HPI - Male Genitourinary General: Chief complaint: Urogenital-Male Stated complaint: PROCEDURE BY DR VILLALOBOS TODAY/UNABLE TO URINATE Time Seen by Provider: 04/09/20 22:40 History of Present Illness: HPI Narrative: Patient states he has been unable to urinate since he had his procedure today and bladder feels very full and it hurts. Complaint: other (Urine retention) Onset (ago): hour(s) Duration: constant and progressively worsening Associated symptoms: Deny nausea or vomiting Review of Systems Const: Denies: fever(s), chills or body aches Eyes: Denies: change in vision or blurry vision ENMT: Denies: throat pain or nasal congestion Card: Denies: chest pain or dyspnea on exertion Resp: Denies: dyspnea, productive cough or non-productive cough GI: Denies: abdominal pain, nausea or vomiting : Reports: difficulty urinating and oliguria Musc: Denies: extremity pain Skin/Breast: Denies: rash Neuro: Denies: headache(s) Psych: Denies: anxiety or depression Denny/Lymph: Denies: easy bruising PFSH ED PFSH: Medical History Right ureteral stone Family History Other Cancer Diabetes Social History Smoking and tobacco status: current every day smoker cigarettes Alcohol intake: never Marital status: Current occupational status: retired Physical Exam Const: COMMON NORMALS: no acute distress, average body habitus and patient oriented x3 HENMT: COMMON NORMALS: normocephalic HEAD & SCALP: normal to inspection and normocephalic FACE & SINUS: normal facial exam Eye: COMMON NORMALS: conjunctivae normal GENERAL EYE: appearance normal, both eyes and all related structures CONJUNCTIVA: Yes conjunctivae normal Neck/C-Spine: COMMON NORMALS: no JVD Chest: COMMONS NORMALS: normal inspection of the chest Resp: COMMON NORMALS: normal respiratory effort Cardio: COMMON NORMALS: no JVD and regular rate RATE: regular rate GI: INSPECTION: Yes other (Distended over the pubic area) AUSCULTATION: Yes normoactive bowel sounds PALPATION: Yes Tenderness to palpation present (GI) Extremity: COMMON NORMALS: normal to inspection and full ROM Neuro: COMMON NORMALS: patient oriented x3 Course Vital Signs: Vital signs: Vital Signs Temperature 97.8 F 04/09/20 22:14 Pulse Rate 93 04/09/20 22:14 Respiratory Rate 14 04/09/20 22:14 Blood Pressure 169/86 04/09/20 22:14 Pulse Oximetry 96 04/09/20 22:14 Discharge Plan Discharge Condition: Good Prescriptions: No Action metformin 1,000 mg Tablet 1,000 mg PO DAILY RF: 0 glimepiride 4 mg Tablet 4 mg PO DAILY RF: 0 olmesartan-hydrochlorothiazide [Benicar HCT] 20-12.5 mg Tablet 1 tab PO DAILY RF: 0 Januvia 100 mg Tablet 100 mg PO DAILY RF: 0 potassium citrate 10 mEq (1,080 mg) tablet extended release 10 meq PO BID Qty: 120 RF: 12 Coding Level of Care Code ED Mild Disabilities Teacher for Leisa Whittaker
[2020-04-09] MEDS: HYDROcodone-acetaminophen 5-325 mg Tablet 1 TAB PO (22:55)
[2020-04-09 23:00] LABS: Add Urine Microscopic? YES; Bilirubin Urine Neg (Negative); Blood Urine 3+ (Negative); Glucose Urine UA 1+ (Normal); Ketones Urine Negative (Negative); Leukocyte Esterase Urine Trace (Negative); Nitrate Urine Negative (Negative); Protein Urine 2+ (Negative); Urine Appearance Hazy (CLEAR); Urine Color Red (Yellow); Urobilinogen Urine Norm (Negative)
[2020-04-09 23:01] LABS: Add Urine Culture? Yes; Bacteria Urine 1+ /hpf; RBC Urine 50-80 /hpf (0-2); Squamous Epithelial Cell Urine 0-4 /hpf (0-5)
== END 2020-04-09 23:15 | disposition home or self-care (01) ==
PROVIDERS: Emergency Medicine; Emergency Provider Nurse Practitioner Family; PCP Family Medicine
DX: R33.9 Retention of urine, unspecified (principal); Z87.442 Personal history of urinary calculi; F17.210 Nicotine dependence, cigarettes, uncomplicated
CPT/HCPCS: 12345; 51702; 81001; 87086; 99281; 99283

== ENCOUNTER 2020-04-23 09:41 | Outpatient (CLI) | payer OTHER, SELFPAY ==
[2020-04-23 10:31] LABS: Anion Gap 15.2 (5-19); Blood Urea Nitrogen 12 mg/dL (8-23); Calcium 9.8 mg/dL (8.5-10.5); Carbon Dioxide 28 mmol/L (22-29); Chloride 98 mmol/L (98-107); Glucose 255 mg/dL (65-115); Osmolality Calculated 292 mOsm/kg (285-295); Potassium 4.2 mmol/L (3.5-5.1); Sodium 137 mmol/L (136-145)
== END 2020-04-23 09:42 | disposition home or self-care (01) ==
LOC: LAB 09:42
PROVIDERS: PCP Family Medicine; Visit Provider Urology
DX: R33.8 Other retention of urine (principal)
CPT/HCPCS: 36415; 80048

== ENCOUNTER → 2020-05-18 09:09 | Outpatient (BNVA) | payer OTHER, SELFPAY | PROVIDERS: PCP Family Medicine; Visit Provider Urology | DX: R33.9 Retention of urine, unspecified (principal); N20.9 Urinary calculus, unspecified; N20.1 Calculus of ureter | CPT/HCPCS: 81003 ==

== ENCOUNTER 2020-12-06 08:30 | Outpatient (CLI) | payer OTHER, SELFPAY ==
--- NOTE | 2020-12-06 09:45 | XR_ITS ---
WS: [id number] Exam: XR KUB [id number] Date/Time of Exam: 12/06/2020 9:09 AM Reason For Exam: URIC ACID UROLITHIASIS No bowel obstruction or free air. No sign of organ enlargement. Bony changes in the pelvis that might be seen with diffuse idiopathic skeletal hyperostosis. XR/XR KUB [id number] IMPRESSION: 1. No acute abdominal finding.
== END 2020-12-06 08:31 | disposition home or self-care (01) ==
PROVIDERS: PCP Family Medicine; Visit Provider Urology
DX: N20.9 Urinary calculus, unspecified (principal)
CPT/HCPCS: 74018

== ENCOUNTER → 2021-03-07 06:43 | Outpatient (BNVA) | payer MEDICARE, OTHER, SELFPAY | PROVIDERS: PCP Family Medicine; Visit Provider Urology | DX: R33.9 Retention of urine, unspecified (principal); N20.9 Urinary calculus, unspecified | CPT/HCPCS: 81003 ==

== ENCOUNTER → 2021-07-04 10:25 | Outpatient (BNVA) | payer MEDICARE, SELFPAY | PROVIDERS: PCP Family Medicine; Visit Provider Urology | DX: R33.9 Retention of urine, unspecified (principal) | CPT/HCPCS: 81003 ==

== ENCOUNTER → 2021-11-05 11:58 | Outpatient (BNVA) | payer MEDICARE, SELFPAY | PROVIDERS: PCP Family Medicine; Visit Provider Nurse Practitioner Family | DX: N20.9 Urinary calculus, unspecified (principal); N28.9 Disorder of kidney and ureter, unspecified; R33.9 Retention of urine, unspecified; R31.0 Gross hematuria | CPT/HCPCS: 51798; 99213 ==

== ENCOUNTER 2021-12-13 07:29 | Outpatient (CLI) | payer MEDICARE, SELFPAY ==
[2021-12-13] MEDS: iohexol 350 mg/mL 100 mL Btl IV (08:02)
[2021-12-13 08:15] LABS: Blood Urea Nitrogen 14 mg/dL (8-23); Glomerular Filtration Rate 60.8 mL/min (90-130)
--- NOTE | 2021-12-13 09:00 | CT_ITS ---
WS: [id number] CT ABDOMEN PELVIS TECHNIQUE: Noncontrast CT of the abdomen and contrast-enhanced CT of the abdomen and pelvis with bal nal and sagittal reformatted images. CLINICAL INFORMATION: Kidney lesion/Urolithiasis COMPARISON:CT 04/03/2020 and 03/14/2020 DLP: 4365.[address] scans at [facility] use at least one of these dose optimization techniques: automated e xposure control; mA and/or kV adjustment per patient size (includes targeted exams where dose is matc hed to clinical indication); or iterative reconstruction. FINDINGS: Since the prior CT, RIGHT double-J ureteral stent has been removed. No hydronephrosis. Normal bilater al renal cortical enhancement. LEFT adrenal lesion likely adenoma is unchanged measuring 3.0 x 1.7 cm . No obstructing renal or ureteral calculi. Lobulated enhancing lesion upper pole RIGHT kidney suspic ious for neoplasm measuring 3.1 x 3.2 CM. This appears increased in size compared to April 03, 2020 . Intraluminal bladder calculus in the dorsal bladder measuring 11 mm. Heterogeneously enhancing enlarged prostate measuring 4.1 cm.Lung bases are well aerated. Tiny hazy o pacity RIGHT lower lobe measuring 8 mm. Mild diffuse fatty infiltration of the liver. Normal portal vein and splenic vein. Mild hepatomegaly. Normal spleen. Normal GE junction. Normal pancreatic parenchymal enhancement. Normal caliber abdominal aorta. Celiac and SMA are patent. Normal appendix in the RIGHT lower quadran t. CT/CT abdomen pelvis wo/w [id number] IMPRESSION: 1. Enhancing RIGHT upper pole renal lesion compatible with neoplasm measuring 3.2 x 3.1 CM. This has increased in size since April 03, 2020. 2. No hydronephrosis in either kidney. 3. Lobulated stable LEFT adrenal adenoma/s. 4. No obstructing renal or ureteral calculi. 5. Normal excretion on the delayed images. 6. Dependent calculus in the bladder measuring 11 mm. 7. Diffuse fatty infiltration liver. 8. Heterogeneously enhancing prostate with indentation on the bladder. Recomme nd correlation PSA.
== END 2021-12-13 07:30 | disposition home or self-care (01) ==
LOC: RAD 07:30
PROVIDERS: PCP Family Medicine; Visit Provider Nurse Practitioner Family
DX: N20.9 Urinary calculus, unspecified (principal); N28.9 Disorder of kidney and ureter, unspecified
CPT/HCPCS: 74178; 81003; 82565; 84520; 99213

== ENCOUNTER 2023-07-07 13:26 | Oncology outpatient (recurring) (ONCR) | payer MEDICARE, OTHER, SELFPAY ==
--- NOTE | 2023-06-23 10:42 | N.ONRAD NP_ITS ---
Radiation Oncology New Patient Visit Patient: William Choudhury MR#: [id number] : 1955> Age: 67> Sex: Male> Dictated by: Dr. Francia Huang Date of Service: 06/23/2023 Referring Physician(s) : dr guerrero Diagnosis: Prostate cancer, Arcadia score 6 7 and 8, PSA 11.8 Radiotherapy to date: Summary > No prior radiation therapy. Chief Complaint / History of Present Illness: Patient is a 66-year-old gentleman who visited with Dr. Becerra he thinks in January of last year for a regular checkup. At that time he had lab drawn and then subsequently had a colonoscopy. He was found at that time to have an elevated PSA and this led to referral to [place] for urological evaluation. He did have a urological history with renal stones and a bladder stone. He was found at the time of his biopsy to have a 55 g prostate. 5 of the 6 biopsies were positive for Arcadia score 6 7 and 8. He did had a PSMA PET scan which did not show any evidence of metastatic disease. He is seen today in consultation to discuss treatment options. The plan is to proceed with removal of the bladder stone after treatment. Current Medications: empagliflozin (Jardiance) 10 mg PO DAILY glimepiride 4 mg PO DAILY metformin 1,000 mg PO DAILY olmesartan-hydrochlorothiazide 20-12.5 mg (Benicar HCT) 1 tab PO DAILY sitagliptin (Januvia) 100 mg PO DAILY tamsulosin 0.4 mg PO BID Allergies: NKA Medical History: Uric acid urolithiasis , bladder stone diabetes no history of collagen vascular disease. No previous radiation therapy. Surgical History: Kidney stone removal, cataract surgery Family History: Noncontributory for cancer Social History: Smokes daily, alcohol is social Current Complaints / Review of Systems: . Vital Signs: Performed on 06/23/2023 9:09 AM BMI - 39.784 kg/m2 (high), Height - 69 in, Weight - 269.4 lbs, Temperature - 96.7 f, Pulse - 84 /min, Respiration - 18 /min, O2 Sat - 97 %, Pain - 0, Fatigue - 0 and BP - 152/ 84 mm(hg)(high/). Physical Exam: General: Patient is in no apparent distress. He is alone today. HEENT: Normocephalic atraumatic. Pupils are equal, sclera clear, extraocular muscles intact Pulmonary: Respiratory rate is regular nonlabored Cardiovascular: Regular rate and rhythm Abdomen: Moderately protuberant and android pattern Extremities: Without obvious edema Skin: Without obvious lesions or hyperpigmentation or bruises Neurological: Alert and orient x 3. Gait and speech within normal limits Psych: Affect appropriate for current situation Performance Status: 90 Pathology: Adenocarcinoma the prostate Marisol score 6 7 and 8 Lab: Imaging: See HPI Impression: Adenocarcinoma the prostate Marisol score 6 7 and 8 Plan: I reviewed the history of the events. We talked about the different things that we look at when trying to determine the best treatment plan to offer patient. He is already been told he would not be a good surgical candidate. We talked about his Marisol score and his PSA. I did recommend to him that the most aggressive course of treatment would be to undergo ADT followed by an along with external beam radiation. After some discussion about ADT he has declined. We talked about the radiation. We reviewed the simulation process. We discussed the risk and side effects both acute and long-term. We talked about the daily treatment regiment. At this point he has agreed to proceed with radiation. He will undergo simulation and begin his treatment shortly thereafter. We will have him get a PSA just prior to starting treatment. Signed by: 06/23/2023 10:40:38 AM <<Signature on File>> Time spent with [id number]: CPT Code: CPT Code:
== END 2023-07-07 23:59 | disposition home or self-care (01) ==
PROVIDERS: PCP Family Medicine; Visit Provider Radiology Radiation Oncology
DX: C61 Malignant neoplasm of prostate (principal); Z51.0 Encounter for antineoplastic radiation therapy
CPT/HCPCS: 77300; 77301; 77334; 77338; 77385; 99205

== ENCOUNTER 2023-07-24 11:00 | Oncology outpatient (recurring) (ONCR) | payer MEDICARE, OTHER, SELFPAY ==
--- NOTE | 2023-07-10 08:15 | ONCRAD TMN_ITS ---
Radiation Oncology Weekly Treatment Management Patient: William Choudhury MR#: [id number] : 1955 Attending Physician: Zac Beck Date of Service: 07/08/2023 Referring Physician(s) : Diagnosis: C61 - Malignant neoplasm of prostate, Diagnosed 06/23/2023 (Active) Radiotherapy to date: Course: prostate/sv, Treatment Site: Prostate 70Gy, Ref. ID: [id number], Energy: 15X, Dose/Fx (cGy): 250, #Fx: , Dose Correction (cGy): 0, Total Dose Delivered (cGy): 500, Start Date: 07/07/2023, Elapsed Days: 1 Reason for visit: The patient is being seen today as part of their regularly scheduled weekly on treatment visits to assess for acute toxicities from radiotherapy. Review of Systems: No interval changes. Nocturia 3 ??? 4 x. Flomax 2 per day. Flow better in AM. Active . Smoking ??? ppd. Vital Signs: Performed on 07/08/2023 11:35 AM BMI - 39.843 kg/m2 (high), Height - 69 in, Weight - 269.8 lbs, Temperature - 96.7 f, Pulse - 97 /min, Respiration - 18 /min, O2 Sat - 98 %, Pain - 0, Fatigue - 0 and BP - 179/ 89 mm(hg)(high/). Physical Exam: Imaging: Radiation therapy imaging related to accurate target localization (i.e. KV, MV and CBCT) was reviewed. Appropriate changes, if any, were made to ensure treatment accuracy. Plan: Good tolerance of treatment. Shift Flomax to 2 q HS. Pleaded for him to stop smoking. Continue as planned. Signed by: Zac Beck 07/10/2023 8:13:26 AM Telemedicine Consent Patient seen today via Telemedicine by agreement and consent of patient. Telemedicine technology used during the visit include audio and, as available, review of images. This patient encounter is appropriate and reasonable under the circumstances given the patient???s particular presentation at this time. The patient has been advised of the potential risks and limitations of this mode of treatment (including but not limited to the absence of in-person examination) and has agreed to be treated in a remote fashion in spite of them. Any and all of the patient???s/patient???s family???s questions on this issue have been answered and I have made no promises or guarantees to the patient. The patient has also been advised to contact this office for worsening conditions or problems, and seek emergency medical treatment and/or call 911 if the patient deems either necessary.
--- NOTE | 2023-07-14 13:16 | ONCRAD TMN_ITS ---
Radiation Oncology Weekly Treatment Management Patient: William Choudhury MR#: [id number] : 1955 Attending Physician: Zac Beck Date of Service: 07/14/2023 Referring Physician(s) : Diagnosis: C61 - Malignant neoplasm of prostate, Diagnosed 06/23/2023 (Active) Radiotherapy to date: Course: prostate/sv, Treatment Site: Prostate 70Gy, Ref. ID: [id number], Energy: 15X, Dose/Fx (cGy): 250, #Fx: , Dose Correction (cGy): 0, Total Dose Delivered (cGy): 1,500, Start Date: 07/07/2023, Elapsed Days: 7 Reason for visit: The patient is being seen today as part of their regularly scheduled weekly on treatment visits to assess for acute toxicities from radiotherapy. Review of Systems: On Flomax 2 po PM with persistent 6 to 7 nocturia. Not sleeping well at night. Still smoking 1/2/ ppd. Occ pain at onset of stream. Vital Signs: Performed on 07/14/2023 11:47 AM BMI - 39.813 kg/m2 (high), Height - 69 in, Weight - 269.6 lbs, Temperature - 97.3 f, Pulse - 86 /min, Respiration - 18 /min, O2 Sat - 97 %, Pain - 0, Fatigue - 7 and BP - 162/ 87 mm(hg)(high/). Physical Exam: Imaging: Radiation therapy imaging related to accurate target localization (i.e. KV, MV and CBCT) was reviewed. Appropriate changes, if any, were made to ensure treatment accuracy. Plan: Good tolerance of treatment. To assist with sleep we will add Ambien 5 mg. Discussed smoking cessation. Continue treatment as planned. Signed by: Zac Beck 07/14/2023 1:15:28 PM
[2023-07-20 12:36] LABS: Add Urine Culture? Yes; Bacteria Urine TRACE /hpf; Bilirubin Urine Neg (Negative); Blood Urine 3+ (Negative); Glucose Urine UA Trace (Normal); Ketones Urine Negative (Negative); Leukocyte Esterase Urine Negative (Negative); Nitrate Urine Negative (Negative); Protein Urine 2+ (Negative); RBC Urine TOO NUMEROUS TO CNT /hpf (0-2); Squamous Epithelial Cell Urine RARE /hpf (0-5); Urine Appearance Cloudy (CLEAR); Urine Color Yellow (Yellow); Urobilinogen Urine Neg (Negative); pH Urine 5 (5-7)
--- NOTE | 2023-07-21 23:09 | ONCRAD TMN_ITS ---
Radiation Oncology Weekly Treatment Management Patient: Kei Thomas> MR#: [id number] : 1955> Attending Physician: Zac Beck Date of Service: 07/20/2023 Referring Physician(s) : Diagnosis: C61 - Malignant neoplasm of prostate, Diagnosed 06/23/2023 (Active) Radiotherapy to date: Course: prostate/sv, Treatment Site: Prostate 70Gy, Ref. ID: [id number], Energy: 15X, Dose/Fx (cGy): 250, #Fx: , Dose Correction (cGy): 0, Total Dose Delivered (cGy): 2,500, Start Date: 07/07/2023, Elapsed Days: 13 Reason for visit: The patient is being seen today as part of their regularly scheduled weekly on treatment visits to assess for acute toxicities from radiotherapy. Review of Systems: Miserable. Dribbling urination despite use of Flomax. Urination lo. Azo dis help in the past. Vital Signs: Performed on 07/20/2023 11:26 AM BMI - 39.725 kg/m2 (high), Height - 69 in, Weight - 269 lbs, Temperature - 97 f, Pulse - 80 /min, Respiration - 18 /min, O2 Sat - 97 %, Pain - 8, Fatigue - 0 and BP - 156/ 80 mm(hg)(high/). Physical Exam: Imaging: Radiation therapy imaging related to accurate target localization (i.e. KV, MV and CBCT) was reviewed. Appropriate changes, if any, were made to ensure treatment accuracy. Plan: Fair to poor tolerance of treatment. Will check UA and urine culture. Add Pyridium 100 to 200 mg TID. Continue as planned 10 minutes was spent with patient and in charting. Signed by: Zac Beck 07/21/2023 11:08:33 PM Telemedicine Consent Patient seen today via Telemedicine by agreement and consent of patient. Telemedicine technology used during the visit include audio and, as available, review of images. This patient encounter is appropriate and reasonable under the circumstances given the patient???s particular presentation at this time. The patient has been advised of the potential risks and limitations of this mode of treatment (including but not limited to the absence of in-person examination) and has agreed to be treated in a remote fashion in spite of them. Any and all of the patient???s/patient???s family???s questions on this issue have been answered and I have made no promises or guarantees to the patient. The patient has also been advised to contact this office for worsening conditions or problems, and seek emergency medical treatment and/or call 911 if the patient deems either necessary.
== END 2023-07-24 23:59 | disposition home or self-care (01) ==
PROVIDERS: Radiology Radiation Oncology; PCP Family Medicine; Visit Provider Radiology Radiation Oncology
DX: Z51.0 Encounter for antineoplastic radiation therapy (principal); C61 Malignant neoplasm of prostate
CPT/HCPCS: 77336; 77385; 81001; 87086; 99024

== ENCOUNTER 2023-08-07 10:48 | Oncology outpatient (recurring) (ONCR) | payer MEDICARE, OTHER, SELFPAY ==
--- NOTE | 2023-07-28 11:41 | ONCRAD TMN_ITS ---
Radiation Oncology Weekly Treatment Management Patient: Kei Thomas> MR#: [id number] : 1955> Attending Physician: Dr. Francia Huang Date of Service: 07/28/2023 Fractions: Referring Physician(s) : Diagnosis: C61 - Malignant neoplasm of prostate, Diagnosed 06/23/2023 (Active) Radiotherapy to date: Course: prostate/sv, Treatment Site: Prostate 70Gy, Ref. ID: [id number], Energy: 15X, Dose/Fx (cGy): 250, #Fx: , Dose Correction (cGy): 0, Total Dose Delivered (cGy): 4,000, Start Date: 07/07/2023, Elapsed Days: 21 Reason for visit: The patient is being seen today as part of their regularly scheduled weekly on treatment visits to assess for acute toxicities from radiotherapy. Review of Systems: Patient has had problems with dysuria. He had his urine checked when this first started. He is taking 2 Tylenol and Azo in the morning and 2 Tylenol and Azo in the evening for his dysuria. Vital Signs: Performed on 07/28/2023 11:13 AM BMI - 39.282 kg/m2 (high), Height - 69 in, Weight - 266.0 lbs, Temperature - 97.9 f, Pulse - 89 /min, Respiration - 17 /min, O2 Sat - 98 %, Pain - 3, Fatigue - 5 and BP - 159/ 76 mm(hg)(high/). Physical Exam: No changes on exam Imaging: Radiation therapy imaging related to accurate target localization (i.e. KV, MV and CBCT) was reviewed. Appropriate changes, if any, were made to ensure treatment accuracy. Plan: Will continue with his treatments. I did encourage him to let us know if he thinks his urinary symptoms have worsened at all we be happy to check his urine again on a frequent basis. Signed by: Dr. Francia Huang 07/28/2023 11:40:09 AM
--- NOTE | 2023-08-04 11:41 | ONCRAD TMN_ITS ---
Radiation Oncology Weekly Treatment Management Patient: William Choudhury MR#: [id number] : 1955 Attending Physician: Dr. Francia Huang Date of Service: 08/04/2023 Fractions: 20 out of 28 Referring Physician(s) : Diagnosis: C61 - Malignant neoplasm of prostate, Diagnosed 06/23/2023 (Active) Radiotherapy to date: Course: prostate/sv, Treatment Site: Prostate 70Gy, Ref. ID: [id number], Energy: 15X, Dose/Fx (cGy): 250, #Fx: , Dose Correction (cGy): 0, Total Dose Delivered (cGy): 5,000Start Date: 07/07/2023, Elapsed Days: 28 Reason for visit: The patient is being seen today as part of their regularly scheduled weekly on treatment visits to assess for acute toxicities from radiotherapy. Review of Systems: Patient says the dysuria has improved. He is discontinued the Azo. He is continue to take his antibiotics. Vital Signs: Performed on 08/04/2023 11:24 AM BMI - 36.771 kg/m2 (high), Height - 69 in, Weight - 249 lbs, Temperature - 97.1 f, Pulse - 74 /min, Respiration - 16 /min, O2 Sat - 97 %, Pain - 0, Fatigue - 6 and BP - 146/ 77 mm(hg)(high/). Physical Exam: No changes on exam Imaging: Radiation therapy imaging related to accurate target localization (i.e. KV, MV and CBCT) was reviewed. Appropriate changes, if any, were made to ensure treatment accuracy. Plan: Will continue with his treatments as planned. We talked about a 1 month follow-up with his PSA. He also talked about how to use going to have the kidney stone removed from the 1 kidney once all of the treatment has been completed. Signed by: Dr. Francia Huang 08/04/2023 11:39:22 AM
== END 2023-08-07 23:59 | disposition home or self-care (01) ==
PROVIDERS: PCP Family Medicine; Visit Provider Radiology Radiation Oncology
DX: Z51.0 Encounter for antineoplastic radiation therapy (principal); C61 Malignant neoplasm of prostate
CPT/HCPCS: 77336; 77385; 99024

== ENCOUNTER 2023-08-19 01:23 | Emergency (ER) | payer MEDICARE, OTHER, SELFPAY ==
[2023-08-19 01:31] VITALS: BP 181/93; PULSE 102; RESP 18; TEMP 36.6; O2SAT 97; BMI 39.1
--- NOTE | 2023-08-19 01:36 | ED_ITS ---
HPI - Male Genitourinary General: Chief complaint: Urogenital-Male Stated complaint: Cant Pee Time Seen by Provider: 08/19/23 01:27 History of Present Illness: Patient presents to the ER with complaints of urinary retention. Patient stated it started earlier today and he is feeling the need to go pee but cannot. Patient does have bladder cancer and he was just finishing up radiation. He is currently on Cipro and Pyridium for a possible urinary tract infection. Patient never had urinary retention before. Patient does see urologist in [place]. Review of Systems General: Reports: 10 or more systems reviewed and unremarkable except in HPI and below PFSH ED PFSH: Medical History Uric acid urolithiasis Urinary retention Right ureteral stone Surgical History Hx of cataract extraction Family History Father Aspiration into airway Mother Diabetes Other Cancer Social History Smoking and tobacco/nicotine status: current every day tobacco/nicotine user cigarettes Alcohol intake: current Alcohol intake frequency: holidays/special occasions only Substance/Drug Use: never Marital status: Current occupational status: retired Physical Exam Const: COMMON NORMALS: no acute distress, average body habitus, patient oriented x3, no limitations, healthy appearing, alert and well nourished Neck/C-Spine: COMMON NORMALS: no JVD Chest: COMMONS NORMALS: normal inspection of the chest and normal palpation of entire chest wall Resp: COMMON NORMALS: normal respiratory effort, No retractions, No use of accessory muscles and clear to auscultation bilaterally AUSCULTATION: clear to auscultation bilaterally Cardio: COMMON NORMALS: no JVD, regular rate, regular rhythm, S1 normal heart sound present, S2 normal heart sound present, No gallops present (Cardio), No clicks present (Cardio), No murmurs present (Cardio) and No rub (Cardio) RATE: regular rate RHYTHM: regular rhythm HEART SOUNDS: S1 normal heart sound present and S2 normal heart sound present GI: COMMON NORMALS: Normal to inspection, nondistended, normoactive bowel doug nds present, Soft to palpation, No hepatosplenomegaly present and no masses; negative for non-tender (Tender to palpation suprapubically) PALPATION: Yes Soft to palpation and Yes No hepatosplenomegaly present Neuro: COMMON NORMALS: patient oriented x3 SENSORIUM/ORIENTATION: Yes alert Course Vital Signs: Vital signs: Vital Signs Temperature 97.9 F 08/19/23 01:31 Pulse Rate 102 H 08/19/23 01:31 Respiratory Rate 18 08/19/23 01:31 Blood Pressure 181/93 08/19/23 01:31 Pulse Oximetry 97 08/19/23 01:31 Oxygen Delivery Me thod Room Air 08/19/23 01:31 MDM - Male Medical Decision Making Vallejo catheter was placed for urinary retention. Approximate 200 mL urine was obtained. We did send this off for urinalysis which did show 1+ leukocyte Estrace and 15-25 white blood cells. Also 3+ blood. Patient be instructed to continue the Cipro that he is currently taking and follow-up with his family doctor or urologist within the next 2 to 3 days. Differential Diagnosis Likely acute retention of urine Medical Records I reviewed the patient's medical records. Lab Data I reviewed the patient's lab results. Laboratory Results Urine Color Dark yellow (Yellow) 08/19/23 01:43 Urine Appearance Slightly cloudy (CLEAR) 08/19/23 01:43 Urine pH 6.5 (5-7) 08/19/23 01:43 Ur Specific [place] 1.015 (1.005-1.030) 08/19/23 01:43 Urine Protein 3+ (Negative) H 08/19/23 01:43 Urine Glucose (UA) 2+ (Normal) H 08/19/23 01:43 Urine Ketones Negative (Negative) 08/19/23 01:43 Urine Blood 3+ (Negative) H 08/19/23 01:43 Urine Nitrate Negative (Negative) 08/19/23 01:43 Urine Bilirubin 2+ (Negative) H 08/19/23 01:43 Urine Urobilinogen 8 mg/dL (Negative) H 08/19/23 01:43 Ur Leukocyte Esterase 1+ (Negative) H 08/19/23 01:43 Urine RBC 80-100 /hpf (0-2) H 08/19/23 01:43 Urine WBC 15-25 /hpf (0-5) H 08/19/23 01:43 Ur Squamous Epith Cells None /hpf (0-5) 08/19/23 01:43 Amorphous Sediment Not Reportable 08/19/23 01:43 Urine Bacteria Trace /hpf (NONE) 08/19/23 01:43 No radiology studies performed this visit Discharge Plan Discharge Patient Disposition: Home Clinical Impression: Acute urinary retention Condition: Stable Prescriptions: No Action Jardiance 10 mg tablet 10 mg PO DAILY tamsulosin 0.4 mg capsule See Rx Instructions .ROUTE .COMPLEX Qty: 180 3RF Dose Instruction: TAKE 1 CAPSULE TWICE A DAY Rx Instructions: TAKE 1 CAPSULE TWICE A DAY zolpidem [Ambien] 5 mg tablet 5 mg PO ONCE MDD 10 mg 30 Days Qty: 30 0RF phenazopyridine [Pyridium] 100 mg tablet 100 mg PO TID MDD 600 mg PRN (Reason: pain) Qty: 120 0RF ciprofloxacin HCl [Cipro] 500 mg tablet 500 mg PO BID 7 Days Qty: 14 0RF ibuprofen 800 mg tablet 800 mg PO TID 7 Days Qty: 21 0RF ciprofloxacin HCl 500 mg tablet 500 mg PO BID 14 Days Qty: 28 1RF metformin 1,000 mg Tablet 1,000 mg PO DAILY glimepiride 4 mg Tablet 4 mg PO DAILY olmesartan-hydrochlorothiazide [Benicar HCT] 20-12.5 mg Tablet 1 tab PO DAILY Januvia 100 mg Tablet 100 mg PO DAILY Discharge Orders: Discharge ED (Routine); Ordered 08/19/23 Ordered By: Hawk Ngo Referrals: Clark Becerra MD [Primary Care Provider] - 1 week Patient Instructions: Urinary Retention in Men (ED), Vallejo Catheter Care Activity Restrictions/Additional Instructions: Vallejo catheter was placed to relieve your urinary retention. Please follow-up with your family practice physician or urologist within the next 2 to 3 days for further evaluation and treatment and possible Vallejo catheter removal. Continue to use the Cipro antibiotics that been previously prescribed to you. Coding Level of Care Code ED Cheese Cook for Leisa Whittaker
[2023-08-19 02:33] LABS: Specific Gravity, Urine 1.015 (1.005-1.030); Urine Appearance Slightly Cloudy (CLEAR); Urine Color Dark Yellow (Yellow); pH Urine 6.5 (5-7)
[2023-08-19 02:34] LABS: Add Urine Microscopic? YES; Bilirubin Urine 2+ (Negative); Blood Urine 3+ (Negative); Glucose Urine UA 2+ (Normal); Ketones Urine Negative (Negative); Leukocyte Esterase Urine 1+ (Negative); Nitrate Urine Negative (Negative); Protein Urine 3+ (Negative); Urobilinogen Urine 8 mg/dL (Negative)
[2023-08-19 02:35] LABS: Bacteria Urine TRACE /hpf; RBC Urine 80-100 /hpf (0-2); WBC Urine 15-25 /hpf (0-5)
[2023-08-19 02:36] LABS: Add Urine Culture? Yes
[2023-08-19 03:02] VITALS: BP 181/93; PULSE 102; RESP 18; TEMP 36.6; O2SAT 97
== END 2023-08-19 03:03 | disposition home or self-care (01) ==
PROVIDERS: Emergency Provider Emergency Medicine; PCP Family Medicine
DX: R33.9 Retention of urine, unspecified (principal); Z79.84 Long term (current) use of oral hypoglycemic drugs; F17.210 Nicotine dependence, cigarettes, uncomplicated
CPT/HCPCS: 51702; 51798; 81001; 87086; 99283

== ENCOUNTER 2023-08-25 09:15 | Oncology outpatient (recurring) (ONCR) | payer MEDICARE, OTHER, SELFPAY ==
--- NOTE | 2023-08-11 11:57 | ONCRAD TMN_ITS ---
Radiation Oncology Weekly Treatment Management Patient: Kei Alonso MR#: [id number] : 1955> Attending Physician: Dr. Francia Huang Date of Service: 08/11/2023 Fractions: 25 out of 28 Referring Physician(s) : Diagnosis: C61 - Malignant neoplasm of prostate, Diagnosed 06/23/2023 (Active) Radiotherapy to date: Course: prostate/sv, Treatment Site: Prostate 70Gy, Ref. ID: [id number], Energy: 15X, Dose/Fx (cGy): 250, #Fx: / , Dose Correction (cGy): 0, Total Dose Delivered (cGy): 6,250, Start Date: 07/07/2023, Elapsed Days: 35 Reason for visit: The patient is being seen today as part of their regularly scheduled weekly on treatment visits to assess for acute toxicities from radiotherapy. Review of Systems: Since he completed the antibiotics has began to have the dysuria again he is back to taking his ibuprofen. Vital Signs: Performed on 08/11/2023 11:01 AM BMI - 40.581 kg/m2 (high), Height - 69 in, Weight - 274.8 lbs, Temperature - 97.1 f, Pulse - 86 /min, Respiration - 18 /min, O2 Sat - 97 %, Pain - 0, Fatigue - 6 and BP - 141/ 75 mm(hg)(high/). Physical Exam: No changes on exam Imaging: Radiation therapy imaging related to accurate target localization (i.e. KV, MV and CBCT) was reviewed. Appropriate changes, if any, were made to ensure treatment accuracy. Plan: We talked about how this point since he had several UAs that did not show any signs of infection the most likely etiology of his burning is prostatitis. I am going to go ahead and put him back on his Cipro for another 2 weeks which should get his past the next 3 days of treatment. They will see him back in a month to see how he is feeling. Signed by: Dr. Francia Huang 08/11/2023 11:55:49 AM
[2023-08-25 09:00] LABS: Basophils % 0.7 %; Eosinophils # 0.3 10^3/uL (0.0-0.8); Hematocrit 35.2 % (37-53); Lymphocytes # 0.8 10^3/uL (0.8-4.8); Lymphocytes % 12.6 %; Mean Corpuscular Hemoglobin 20.8 pg (27-33); Mean Corpuscular Volume 71.7 fl (82-101); Mean Platelet Volume 8.2 fL (7.4-10.4); Monocytes # 0.4 10^3/uL (0.2-0.9); Monocytes % 6.6 %; Neutrophils # 4.53 10^3/uL (1.8-7.7); Neutrophils % 74.9 %; Nucleated Red Blood Cells % 0 %; Platelet Count 245 10^3/cmm (157-399); Red Blood Count 4.91 10^6/uL (3.85-5.65); Red Cell Distribution Width 19.4 % (12.1-15.1); White Blood Count 6.04 10^3/uL (3.29-11.43)
[2023-08-25 09:21] LABS: Alanine Aminotransferase 9 U/L (0-41); Alkaline Phosphatase 77 U/L (40-130); Anion Gap 15.5 (5-19); Aspartate Amino Transferase 8 U/L (0-40); Blood Urea Nitrogen 15 mg/dL (8-23); Carbon Dioxide 25 mmol/L (22-29); Chloride 103 mmol/L (98-107); Globulin 3.7 g/dL (1.3-4.6); Glomerular Filtration Rate 96.4 mL/min (90-130); Glucose 72 mg/dL (65-115); Osmolality Calculated 289 mOsm/kg (285-295); Potassium 3.5 mmol/L (3.5-5.1); Sodium 140 mmol/L (136-145); Total Bilirubin 0.3 mg/dL (0.15-1.2); Total Protein 7.7 g/dL (6.6-8.7)
[2023-08-25 12:00] LABS: Iron 20 ug/dL (59-158); Percent Saturation 7.2 % (20-50); Total Iron Binding Capacity 275 mcg/dl; Unsaturated Iron Binding 255 ug/dL (112-347)
== END 2023-09-06 23:59 | disposition home or self-care (01) ==
PROVIDERS: Internal Medicine Medical Oncology; PCP Family Medicine; Visit Provider Radiology Radiation Oncology
DX: C61 Malignant neoplasm of prostate; R30.0 Dysuria; Z53.9 Procedure and treatment not carried out, unspecified reason; D64.9 Anemia, unspecified; R33.9 Retention of urine, unspecified
CPT/HCPCS: 36415; 77336; 77385; 80053; 83540; 83550; 85025; 99024; 99205

== ENCOUNTER 2023-09-08 19:40 | Emergency (ER) | payer MEDICARE, OTHER, SELFPAY ==
[2023-09-08 19:45] VITALS: BP 198/116; PULSE 115; RESP 16; TEMP 36.6; O2SAT 96
--- NOTE | 2023-09-08 20:02 | ED_ITS ---
HPI - Male Genitourinary General: Chief complaint: Urogenital-Male Stated complaint: cant pee, cath backed up scheduled for surgury Time Seen by Provider: 09/08/23 19:48 History of Present Illness: Patient arrives to the ER with complaints of urinary retention. Patient has a history of renal cancer, enlarged prostate and a bladder stone. Patient saw his urologist this morning where they took the Vallejo out and was trying to go without it. Patient is only produced about 200 cc of urine all throughout the day and he feels very bloated distended and his pain from the bladder area. Patient wants Vallejo catheter placed back. Review of Systems General: Reports: 10 or more systems reviewed and unremarkable except in HPI and below PFSH ED PFSH: Medical History Hypertension Type 2 diabetes mellitus Prostate cancer Uric acid urolithiasis Urinary retention Surgical History History of prostate biopsy (04/09/23) TRUSP with biopsies Hx of cataract extraction Family History Father Aspiration into airway Mother Diabetes Other Cancer Social History Smoking and tobacco/nicotine status: current every day tobacco/nicotine user cigarettes Packs smoked per day: 1 Years cigarettes smoked: 50 Alcohol intake: current Alcohol intake frequency: holidays/special occasions only Substance/Drug Use: never Marital status: Current occupational status: retired Physical Exam Neck/C-Spine: COMMON NORMALS: no JVD Chest: COMMONS NORMALS: normal inspection of the chest and normal palpation of entire chest wall Resp: COMMON NORMALS: normal respiratory effort, No retractions, No use of accessory muscles and clear to auscultation bilaterally AUSCULTATION: clear to auscultation bilaterally Cardio: COMMON NORMALS: no JVD, regular rate, regular rhythm, S1 normal heart sound present, S2 normal heart sound present, No gallops present (Cardio), No clicks present (Cardio), No murmurs present (Cardio) and No rub (Cardio) RATE: regular rate RHYTHM: regular rhythm HEART SOUNDS: S1 normal heart sound present and S2 normal heart sound present GI: COMMON NORMALS: Normal to inspection, nondistended, normoactive bowel sounds present, Soft to palpation, No hepatosplenomegaly present and no masses; negative for non-tender (Tender to palpation over bladder area) PALPATION: Ye s Soft to palpation and Yes No hepatosplenomegaly present Course Vital Signs: Vital signs: Vital Signs Temperature 97.8 F 09/08/23 19:45 Pulse Rate 115 H 09/08/23 19:45 Respiratory Rate 16 09/08/23 19:45 Blood Pressure 198/116 09/08/23 19:45 Pulse Oximetry 96 09/08/23 19:45 MDM - Male Medical Decision Making Patient had a Vallejo catheter removed this morning his urologist and is failed to produce adequate urine is now in pain. We will place a Vallejo catheter back in place and have him call his urologist for second morning. Differential Diagnosis Likely acute retention of urine Medical Records I reviewed the patient's medical records. Lab Data I reviewed the patient's lab results. No radiology studies performed this visit Discharge Plan Discharge Patient Disposition: Home Clinical Impression: Acute retention of urine Condition: Stable Prescriptions: No Action zolpidem [Ambien] 5 mg tablet 5 mg PO ONCE PRN (Reason: insomnia) insulin glargine [Lantus U-100 Insulin] 100 unit/mL solution 100 unit SUBCUT DAILY hydrocodone-acetaminophen 5-325 mg tablet 1 - 2 tab PO Q4H MDD 8 PRN (Reason: pain) 7 Days Qty: 60 0RF tamsulosin 0.4 mg capsule See Rx Instructions .ROUTE .COMPLEX Qty: 180 3RF Dose Instruction: TAKE 1 CAPSULE TWICE A DAY Rx Instructions: TAKE 1 CAPSULE TWICE A DAY phenazopyridine [Pyridium] 100 mg tablet 100 mg PO TID MDD 600 mg PRN (Reason: pain) Qty: 120 0RF ciprofloxacin HCl [Cipro] 500 mg tablet 500 mg PO BID 7 Days Qty: 14 0RF ciprofloxacin HCl 500 mg tablet 500 mg PO BID 14 Days Qty: 28 1RF metformin 1,000 mg Tablet 1,000 mg PO DAILY glimepiride 4 mg Tablet 4 mg PO DAILY olmesartan-hydrochlorothiazide [Benicar HCT] 20-12.5 mg Tablet 1 tab PO DAILY Januvia 100 mg Tablet 100 mg PO DAILY Discharge Orders: Discharge ED (Routine); Ordered 09/08/23 Ordered By: Hawk Ngo Referrals: Clark Becerra MD [Primary Care Provider] - 1 week Patient Instructions: Urinary Retention in Men (ED) Activity Restrictions/Additional Instructions: Urinary catheter was placed to resolve your urinary retention. Please call your urologist back for second morning and tell him you had to have a catheter placed again. Coding Level of Care Code ED Casket Upholsterer for Leisa Whittaker
[2023-09-08 20:31] VITALS: BP 198/116; PULSE 115; RESP 16; TEMP 36.6; O2SAT 96
== END 2023-09-08 20:34 | disposition home or self-care (01) ==
PROVIDERS: Emergency Provider Emergency Medicine; PCP Family Medicine
DX: R33.9 Retention of urine, unspecified (principal); Z79.4 Long term (current) use of insulin; Z79.84 Long term (current) use of oral hypoglycemic drugs; I10 Essential (primary) hypertension; E11.9 Type 2 diabetes mellitus without complications; Z85.46 Personal history of malignant neoplasm of prostate; F17.210 Nicotine dependence, cigarettes, uncomplicated
CPT/HCPCS: 51702; 99283

== ENCOUNTER 2023-09-18 03:28 | Emergency (ER) | payer MEDICARE, OTHER, SELFPAY ==
[2023-09-18 03:32] VITALS: BP 180/93; PULSE 106; RESP 18; TEMP 36.4; O2SAT 97; BMI 37.4
--- NOTE | 2023-09-18 04:15 | PC.NURSE ---
Vallejo catheter placed due to urinary retention. 600cc drained from catheter. Dr Cunningham notified of results.
--- NOTE | 2023-09-18 04:22 | W.ED.MALEGU ---
HPI - Male Genitourinary General: Chief complaint: Urogenital-Male Stated complaint: cant pee Time Seen by Provider: 09/18/23 03:51 History of Present Illness: 67-year-old man who had a TURP and bladder stone removal about 2 days ago. He had this done in [place]. He says per instruction of the urologist he took his Vallejo out yesterday morning. He said initially he was urinating but then for about the last 12 hours he has not had any urine output. He is having suprapubic pain and feels like he cannot pee. No fevers. No nausea or vomiting. Review of Systems Narrative: Constitutional symptoms: Negative except as documented in HPI. Skin symptoms: Negative except as documented in HPI. Eye symptoms: Negative except as documented in HPI. ENMT symptoms: Negative except as documented in HPI. Respiratory symptoms: Negative except as documented in HPI. Cardiovascular symptoms: Negative except as documented in HPI. Gastrointestinal symptoms: Negative except as documented in HPI. Genitourinary symptoms: Negative except as documented in HPI. Musculoskeletal symptoms: Negative except as documented in HPI. Neurologic symptoms: Negative except as documented in HPI. Psychiatric symptoms: Negative except as documented in HPI. Endocrine symptoms: Negative except as documented in HPI. PFSH ED PFSH: Medical History Hypertension Type 2 diabetes mellitus Prostate cancer Uric acid urolithiasis Urinary retention Surgical History History of prostate biopsy (04/09/23) TRUSP with biopsies Hx of cataract extraction Family History Father Aspiration into airway Mother Diabetes Other Cancer Social History Smoking and tobacco/nicotine status: current every day tobacco/nicotine user cigarettes Packs smoked per day: 1 Years cigarettes smoked: 50 Alcohol intake: current Alcohol intake frequency: holidays/special occasions only Substance/Drug Use: never Marital status: Current occupational status: retired Physical Exam Narrative: EXAM NARRATIVE: General: Alert, appears in some pain Skin: Warm, diaphoretic Head: Normocephalic, atraumatic. Neck: Supple, trachea midline. Eye: Extraocular movements are intact. Ears, nose, mouth and throat: mucosa moist. Cardiovascular: Regular, Normal peripheral perfusion. Respiratory: Lungs are clear to auscultation, respirations are non-labored, breath sounds are equal, Symmetrical chest wall expansion. Gastrointestinal: Some suprapubic fullness and tenderness. Musculoskeletal: Normal ROM, no deformity. Neurological: Alert and oriented, No focal neurological deficit observed. Psychiatric: Cooperative, appropriate mood & affect. Course Vital Signs: Vital signs: Vital Signs Temperature 97.6 F 09/18/23 03:32 Pulse Rate 106 H 09/18/23 03:32 Respiratory Rate 18 09/18/23 03:32 Blood Pressure 180/93 09/18/23 03:32 Pulse Oximetry 97 09/18/23 03:32 Oxygen Delivery Me thod Room Air 09/18/23 03:32 MDM - Male Medical Decision Making Consultation: I spoke with urologist on-call at [place] prior to placing Vallejo catheter in this postsurgical patient. He approved Vallejo placement. Over 600 cc of urine was removed upon placement of Vallejo catheter. We are leaving this and and patient can follow-up with his urologist. Patient is already on antibiotics from his urologist. I will not change this. Assessment and plan: Urinary retention -Vallejo catheter placed - Discharged home - Discussed plan with patient. Answered any questions. - Evaluation and treatment of this problem were appropriate in the emergency setting. No radiology studies performed this visit Discharge Plan Discharge Patient Disposition: Home Clinical Impression: Acute urinary retention Condition: Stable Prescriptions: No Action zolpidem [Ambien] 5 mg tablet 5 mg PO ONCE PRN (Reason: insomnia) insulin glargine [Lantus U-100 Insulin] 100 unit/mL solution 100 unit SUBCUT DAILY hydrocodone-acetaminophen 5-325 mg tablet 1 - 2 tab PO Q4H MDD 8 PRN (Reason: pain) 7 Days Qty: 60 0RF tamsulosin 0.4 mg capsule See Rx Instructions .ROUTE .COMPLEX Qty: 180 3RF Dose Instruction: TAKE 1 CAPSULE TWICE A DAY Rx Instructions: TAKE 1 CAPSULE TWICE A DAY phenazopyridine [Pyridium] 100 mg tablet 100 mg PO TID MDD 600 mg PRN (Reason: pain) Qty: 120 0RF ciprofloxacin HCl [Cipro] 500 mg tablet 500 mg PO BID 7 Days Qty: 14 0RF ciprofloxacin HCl 500 mg tablet 500 mg PO BID 14 Days Qty: 28 1RF metformin 1,000 mg Tablet 1,000 mg PO DAILY glimepiride 4 mg Tablet 4 mg PO DAILY olmesartan-hydrochlorothiazide [Benicar HCT] 20-12.5 mg Tablet 1 tab PO DAILY Januvia 100 mg Tablet 100 mg PO DAILY Discharge Orders: Discharge ED (Routine); Ordered 09/18/23 Ordered By: Jennifer Cunningham Referrals: Clark Becerra MD [Primary Care Provider] - Discharge Diet: Usual diet Discharge Activity: Increase activity as tolerated Patient Instructions: Vallejo Catheter Placement and Care (ED) Activity Restrictions/Additional Instructions: Thank you for choosing [facility] for your healthcare needs today. Please realize this is an emergency room and that we are providing you with a medical screening exam and this may not be complete and all inclusive of all the testing and or work up that you may need to determine your ailment or severity of your illness. You have been screened and evaluated and felt safe for discharge. Health conditions do change or evolve sometimes and as such it is important that you follow up with your Primary Doctor to be re checked, 3-5 days is a general good time frame for follow up. You are always welcome to return to the ED for re assessment if your symptoms are worsening or you have new concerns Coding Level of Care Code ED Clip On Sunglasses Assembler for Leisa Whittaker
[2023-09-18 04:45] VITALS: BP 172/105; PULSE 90; O2SAT 96
[2023-09-18 04:47] LABS: Urine Appearance Slightly Cloudy (CLEAR); Urine Color Orange (Yellow)
--- NOTE | 2023-09-18 04:47 | PC.NURSE ---
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
[2023-09-18 04:48] LABS: Add Urine Culture? Yes; Bacteria Urine TRACE /hpf; Mucus Urine 2+ /hpf; RBC Urine 21-50 /hpf (0-2); WBC Urine 15-25 /hpf (0-5)
--- NOTE | 2023-09-18 04:48 | PC.NURSE ---
Dr Cunningham made aware of patient's discharge vitals; no further orders received at this time.
== END 2023-09-18 04:30 | disposition home or self-care (01) ==
PROVIDERS: Emergency Provider Emergency Medicine; PCP Family Medicine
DX: R33.9 Retention of urine, unspecified (principal); Z79.84 Long term (current) use of oral hypoglycemic drugs; I10 Essential (primary) hypertension; E11.9 Type 2 diabetes mellitus without complications; Z85.46 Personal history of malignant neoplasm of prostate; F17.210 Nicotine dependence, cigarettes, uncomplicated
CPT/HCPCS: 51702; 81001; 87086; 99283

== ENCOUNTER 2023-09-23 22:52 | Emergency (ER) | payer MEDICARE, OTHER, SELFPAY ==
[2023-09-23 23:02] VITALS: BP 187/92; PULSE 106; RESP 18; TEMP 36.6; O2SAT 97
--- NOTE | 2023-09-24 01:04 | ED_ITS ---
HPI - Male Genitourinary General: Chief complaint: Urogenital-Male Stated complaint: Can't urinate Time Seen by Provider: 09/24/23 00:38 History of Present Illness: Patient is urinary retention he had a Vallejo catheter all the way up until this morning when he took it out. Patient stated he was able to urinate a couple times after that at about 6 PM tonight until now he has not been able to urinate at all he feels very bloated distended and painful in his bladder. Patient is wanting the catheter placed again. Patient does see urologist in [place]. Review of Systems General: Reports: 10 or more systems reviewed and unremarkable except in HPI and below PFSH ED PFSH: Medical History Hypertension Type 2 diabetes mellitus Prostate cancer Uric acid urolithiasis Urinary retention Surgical History History of prostate biopsy (04/09/23) TRUSP with biopsies Hx of cataract extraction Family History Father Aspiration into airway Mother Diabetes Other Cancer Social History Smoking and tobacco/nicotine status: current every day tobacco/nicotine user cigarettes Packs smoked per day: 1 Years cigarettes smoked: 50 Alcohol intake: current Alcohol intake frequency: holidays/special occasions only Substance/Drug Use: never Marital status: Current occupational status: retired Physical Exam Const: COMMON NORMALS: no acute distress, average body habitus, patient oriented x3, no limitations, healthy appearing, alert and well nourished HENMT: COMMON NORMALS: normocephalic, atraumatic, hearing grossly normal bilaterally, external ears normal, Normal external nose present and moist oral mucous membranes HEAD & SCALP: normocephalic and atraumatic NOSE: Normal external nose present EXTERNAL EAR: Yes external ears normal Neck/C-Spine: COMMON NORMALS: no JVD Chest: COMMONS NORMALS: normal inspection of the chest and normal palpation of entire chest wall Resp: COMMON NORMALS: normal respiratory effort, No retractions, No use of accessory muscles and clear to auscultation bilaterally AUSCULTATION: clear to auscultation bilaterally Cardio: COMMON NORMALS: no JVD, regular rate, regular rhythm, S1 normal heart sound present, S2 normal heart sound present, No gallops present (Cardio), No clicks present (Cardio), No murmurs present (Cardio) and No rub (Cardio) RATE: regular rate RHYTHM: regular rhythm HEART SOUNDS: S1 normal heart sound present and S2 normal heart sound present GI: COMMON NORMALS: Normal to inspection, nondistended, normoactive bowel sounds present, Soft to palpation, No hepatosplenomegaly present and no masses; negative for non-tender (Tender to palpate suprapubic) PALPATION: Yes Soft to palpation and Yes No hepatosplenomegaly present Neuro: COMMON NORMALS: patient oriented x3 SENSORIUM/ORIENTATION: Yes alert Course Vital Signs: Vital signs: Vital Signs Temperature 97.9 F 09/23/23 23:02 Pulse Rate 106 H 09/23/23 23:02 Respiratory Rate 18 09/23/23 23:02 Blood Pressure 187/92 09/23/23 23:02 Pulse Oximetry 97 09/23/23 23:02 Oxygen Delivery Me thod Room Air 09/23/23 23:02 MDM - Male Medical Decision Making Vallejo catheter was placed. Patient be discharged. Differential Diagnosis Likely acute retention of urine Medical Records I reviewed the patient's medical records. Lab Data I reviewed the patient's lab results. No radiology studies performed this visit Discharge Plan Discharge Patient Disposition: Home Clinical Impression: Acute urinary retention Condition: Stable Prescriptions: No Action zolpidem [Ambien] 5 mg tablet 5 mg PO ONCE PRN (Reason: insomnia) insulin glargine [Lantus U-100 Insulin] 100 unit/mL solution 100 unit SUBCUT DAILY hydrocodone-acetaminophen 5-325 mg tablet 1 - 2 tab PO Q4H MDD 8 PRN (Reason: pain) 7 Days Qty: 60 0RF tamsulosin 0.4 mg capsule See Rx Instructions .ROUTE .COMPLEX Qty: 180 3RF Dose Instruction: TAKE 1 CAPSULE TWICE A DAY Rx Instructions: TAKE 1 CAPSULE TWICE A DAY phenazopyridine [Pyridium] 100 mg tablet 100 mg PO TID MDD 600 mg PRN (Reason: pain) Qty: 120 0RF ciprofloxacin HCl [Cipro] 500 mg tablet 500 mg PO BID 7 Days Qty: 14 0RF ciprofloxacin HCl 500 mg tablet 500 mg PO BID 14 Days Qty: 28 1RF metformin 1,000 mg Tablet 1,000 mg PO DAILY glimepiride 4 mg Tablet 4 mg PO DAILY olmesartan-hydrochlorothiazide [Benicar HCT] 20-12.5 mg Tablet 1 tab PO DAILY Januvia 100 mg Tablet 100 mg PO DAILY Discharge Orders: Discharge ED (Routine); Ordered 09/24/23 Ordered By: Hawk Ngo Referrals: Clark Becerra MD [Primary Care Provider] - 1 week Patient Instructions: Vallejo Catheter Care, Urinary Retention in Men (ED) Activity Restrictions/Additional Instructions: Please follow-up with your urologist or family practitioner within the next 7 days for reevaluation for your urinary retention and Vallejo catheter. Coding Level of Care Code ED Active Directory Engineer for Leisa Whittaker
== END 2023-09-24 01:32 | disposition home or self-care (01) ==
PROVIDERS: Emergency Provider Emergency Medicine; PCP Family Medicine
DX: R33.9 Retention of urine, unspecified (principal); Z79.4 Long term (current) use of insulin; Z79.84 Long term (current) use of oral hypoglycemic drugs; I10 Essential (primary) hypertension; E11.9 Type 2 diabetes mellitus without complications; Z85.46 Personal history of malignant neoplasm of prostate; F17.210 Nicotine dependence, cigarettes, uncomplicated
CPT/HCPCS: 51702; 99283

== ENCOUNTER 2023-10-05 12:30 | Oncology outpatient (recurring) (ONCR) | payer MEDICARE, OTHER, SELFPAY ==
--- NOTE | 2023-09-07 12:30 | CTR_ITS ---
PROCEDURE INFORMATION: Exam: CT Abdomen And Pelvis With Contrast Exam date and time: 09/07/2023 12:36 PM Age: 67 years old Clinical indication: Patient HX: HX of prostate cancer, urinary retention TECHNIQUE: Imaging protocol: Computed tomography of the abdomen and pelvis with contrast. Radiation optimization: All CT scans at this facility use at least one of these dose optimization techniques: automated exposure control; mA and/or kV adjustment per patient size (includes targeted exams where dose is matched to clinical indication); or iterative reconstruction. Contrast material: OKNI 350; Contrast volume: 100 ml; Contrast route: INTRAVENOUS (IV); COMPARISON: CT abdomen pelvis wo/w [id number] 12/13/2021 8:10 AM RADIATION DOSE METRICS: Total DLP (mGy-cm): 1107 FINDINGS: Lungs: Lung bases are clear. Liver: The liver is normal. Gallbladder and biliary ducts: The gallbladder is normal. There is no biliary dilation. Pancreas: The pancreas is unremarkable. Spleen: The spleen is mildly enlarged. Adrenal glands: There are stable left adrenal nodules measuring 3.7 x 2.0 cm and 2.4 x 1.8 cm, both of which demonstrated low-density on prior noncontrast CT, consistent with benign lipid rich adenomas. There is stable mild hypertrophy of the right adrenal gland. No follow-up imaging is necessary. Kidneys and ureters: There is a heterogeneously enhancing mass exophytic from the upper pole of the right kidney measuring 4.8 x 4.5 cm axial and 4.2 cm craniocaudal dimension, comparing to 3.3 x 3.0 x 3.2 cm on 12/13/2021. There is no hydronephrosis or stones. The left kidney and ureter are unremarkable. Stomach and bowel: The stomach is nondistended, limiting assessment of wall thickness. The small bowel is nondilated. The colon is unremarkable. Appendix: The appendix is normal. Intraperitoneal space: There is no free air or significant intraperitoneal free fluid. Vasculature: There is mild aortic atherosclerotic disease. The portal, splenic and superior mesenteric veins are patent. Renal veins are patent. Lymph nodes: There is no lymphadenopathy in the retroperitoneum, mesentery, pelvis or inguinal regions. Urinary bladder: The urinary bladder is decompressed, limiting evaluation of wall thickness. The Vallejo catheter is appropriately positioned with the bulb and tip within the bladder lumen. There is a 14 mm stone in the bladder lumen. The bladder wall is diffusely thickened. Reproductive: There is mild asymmetric enlargement of the posterior right aspect of the prostate gland. Bones/joints: There is moderate degenerative disease in the lumbar spine. There is mild degenerative disease of both hips. The bony pelvis is intact. Soft tissues: The abdominal wall is intact. CT/CT abdomen pelvis w con* [id number] IMPRESSION: 1. Significantly increased size of solid right renal mass consistent with progressive neoplasm. There is a very subtle fat plane visible between the mass and adjacent liver capsule. No definite liver invasion. Recommend surgical consultation. 2. Stable 14 mm stone in the bladder lumen. Diffusely thickened bladder wall may be due to luminal decompression, cystitis, muscular hypertrophy, or some combination thereof. Vallejo catheter is appropriately positioned. 3. Mild asymmetric enlargement of the right posterior aspect of the prostate gland. Correlate with known neoplasm. 4. Incidental findings above.
[2023-09-07] MEDS: iohexol 350 mg/mL 500 mL Btl (per mL) PO (12:44)
[2023-09-07] MEDS: iohexol 350 mg/mL 500 mL Btl (per mL) IV (12:44)
[2023-10-05 13:17] LABS: Basophils % 0.3 %; Eosinophils # 0.3 10^3/uL (0.0-0.8); Hematocrit 38.3 % (37-53); Lymphocytes % 11.8 %; Mean Corpuscular HGB Conc 29.8 g/dL (30-55); Mean Corpuscular Hemoglobin 21.7 pg (27-33); Mean Platelet Volume 8.2 fL (7.4-10.4); Monocytes # 0.6 10^3/uL (0.2-0.9); Monocytes % 6.5 %; Neutrophils # 6.71 10^3/uL (1.8-7.7); Neutrophils % 77.9 %; Nucleated Red Blood Cells % 0 %; Platelet Count 282 10^3/cmm (157-399); Red Blood Count 5.25 10^6/uL (3.85-5.65); Red Cell Distribution Width 18.5 % (12.1-15.1); White Blood Count 8.62 10^3/uL (3.29-11.43)
[2023-10-05 13:49] LABS: Alanine Aminotransferase 12 U/L (0-41); Alkaline Phosphatase 89 U/L (40-130); Anion Gap 19.3 (5-19); Aspartate Amino Transferase 15 U/L (0-40); Blood Urea Nitrogen 15 mg/dL (8-23); Calcium 9.6 mg/dL (8.5-10.5); Carbon Dioxide 23 mmol/L (22-29); Chloride 100 mmol/L (98-107); Glomerular Filtration Rate 84.2 mL/min (90-130); Glucose 168 mg/dL (65-115); Iron 28 ug/dL (59-158); Osmolality Calculated 291 mOsm/kg (285-295); Percent Saturation 10.8 % (20-50); Potassium 4.3 mmol/L (3.5-5.1); Sodium 138 mmol/L (136-145); Total Bilirubin 0.3 mg/dL (0.15-1.2); Total Iron Binding Capacity 257 mcg/dl; Unsaturated Iron Binding 229 ug/dL (112-347)
[2023-10-05 14:57] LABS: Add Urine Culture? Yes; Bacteria Urine 2+ /hpf; WBC Urine TOO NUMEROUS TO CNT /hpf (0-5)
[2023-10-07 14:22] LABS: Add Urine Microscopic? YES; Bilirubin Urine Neg (Negative); Blood Urine 2+ (Negative); Glucose Urine UA Norm (Normal); Ketones Urine 1+ (Negative); Leukocyte Esterase Urine 2+ (Negative); Nitrate Urine Positive (Negative); Protein Urine 3+ (Negative); Specific Gravity, Urine 1.025 (1.005-1.030); Sulfosalicylic Acid Urine Negative (Negative); Urine Appearance Slightly Cloudy (CLEAR); Urine Color Yellow (Yellow); Urobilinogen Urine Norm (Negative); pH Urine 5 (5-7)
== END 2023-10-07 23:59 | disposition home or self-care (01) ==
PROVIDERS: Nurse Practitioner Family; PCP Family Medicine; Visit Provider Internal Medicine Medical Oncology
DX: C61 Malignant neoplasm of prostate (principal); R33.9 Retention of urine, unspecified; Z53.9 Procedure and treatment not carried out, unspecified reason; R30.0 Dysuria
CPT/HCPCS: 36415; 74177; 80053; 81001; 83540; 83550; 84153; 85025; 87077; 87086; 87186; 99214; Q9967

== ENCOUNTER 2023-11-05 12:39 | Oncology outpatient (recurring) (ONCR) | payer MEDICARE, OTHER, SELFPAY ==
[2023-11-05 13:08] LABS: Basophils % 0.3 %; Eosinophils # 0.3 10^3/uL (0.0-0.8); Eosinophils % 3.5 %; Hematocrit 37.2 % (37-53); Lymphocytes # 1.2 10^3/uL (0.8-4.8); Lymphocytes % 13.1 %; Mean Corpuscular HGB Conc 30.4 g/dL (30-55); Mean Corpuscular Hemoglobin 22.5 pg (27-33); Mean Corpuscular Volume 74.1 fl (82-101); Mean Platelet Volume 8.6 fL (7.4-10.4); Monocytes # 0.4 10^3/uL (0.2-0.9); Monocytes % 4.5 %; Neutrophils # 7.01 10^3/uL (1.8-7.7); Neutrophils % 77.8 %; Nucleated Red Blood Cells % 0 %; Platelet Count 291 10^3/cmm (157-399); Red Blood Count 5.02 10^6/uL (3.85-5.65); White Blood Count 9.02 10^3/uL (3.29-11.43)
[2023-11-05 14:00] LABS: Alanine Aminotransferase 15 U/L (0-41); Albumin Level 3.8 g/dL (3.5-5.2); Alkaline Phosphatase 102 U/L (40-130); Anion Gap 18.4 (5-19); Aspartate Amino Transferase 11 U/L (0-40); Blood Urea Nitrogen 19 mg/dL (8-23); Calcium 8.9 mg/dL (8.5-10.5); Carbon Dioxide 23 mmol/L (22-29); Chloride 98 mmol/L (98-107); Glomerular Filtration Rate 74.5 mL/min (90-130); Glucose 259 mg/dL (65-115); Osmolality Calculated 291 mOsm/kg (285-295); Potassium 4.4 mmol/L (3.5-5.1); Sodium 135 mmol/L (136-145); Total Bilirubin 0.4 mg/dL (0.15-1.2); Total Protein 7.8 g/dL (6.6-8.7)
== END 2023-11-07 23:59 | disposition home or self-care (01) ==
PROVIDERS: Nurse Practitioner Family; PCP Family Medicine; Visit Provider Internal Medicine Medical Oncology
DX: C61 Malignant neoplasm of prostate (principal)
CPT/HCPCS: 36415; 80053; 84153; 85025; 99213

== ENCOUNTER 2023-11-16 15:01 | Outpatient (CLI) | payer MEDICARE, SELFPAY ==
--- NOTE | 2023-11-16 | XRR_ITS ---
PROCEDURE INFORMATION: Exam: XR Left Hip Exam date and time: 11/16/2023 2:32 PM Age: 67 years old Clinical indication: Hip pain; Patient HX: Pain in left hip down to knee for 1 week, HX of prostate cancer with radiation treatment; Additional info: Pain of left hip joint TECHNIQUE: Imaging protocol: Radiologic exam of the left hip. Views: 2 or 3 views hip with pelvis when performed. COMPARISON: CT abdomen pelvis w con* [id number] 09/07/2023 12:36 PM FINDINGS: Bones/joints: No fracture or dislocation is appreciated. No blastic or lytic bony lesions are appreciated. There is mild joint space narrowing with small supra-acetabular osteophyte formation. Soft tissues: No soft tissue abnormalities are otherwise appreciated. Organs: There are radiation seeds within the prostate bed. XR/XR hip LT 2-3V wo/w pel* [id number] IMPRESSION: 1. Mild osteoarthritis.
== END 2023-11-16 15:02 | disposition home or self-care (01) ==
LOC: RADOUTREAD 15:03
PROVIDERS: PCP Family Medicine; Visit Provider Electrodiagnostic Medicine
DX: M25.552 Pain in left hip (principal)

== ENCOUNTER 2023-12-01 11:08 | Outpatient (CLI) | payer MEDICARE, SELFPAY ==
--- NOTE | 2023-12-01 11:19 | XRR_ITS ---
PROCEDURE INFORMATION: Exam: XR Lumbosacral Spine Exam date and time: 12/01/2023 11:26 AM Age: 67 years old Clinical indication: Low back pain TECHNIQUE: Imaging protocol: Radiologic exam of the lumbosacral spine. Views: 6 or more views. Including flexion and extension views. COMPARISON: No relevant prior studies available. FINDINGS: Bones/joints: No fracture or other acute abnormality. There is a mild levocurvature. Sagittal alignment is normal with no instability. Vertebral body and disc space heights are normal. Minor mid and lower lumbar anterolateral hypertrophic changes are seen. Posterior elements are unremarkable. Soft tissues: Unremarkable. XR/XR lumbar spine 6V w f/e [id number] IMPRESSION: Nonacute findings.
== END 2023-12-01 11:09 | disposition home or self-care (01) ==
PROVIDERS: PCP Family Medicine; Visit Provider Family Medicine
DX: M54.50 Low back pain, unspecified (principal)
CPT/HCPCS: 72114

== ENCOUNTER 2023-12-07 11:44 | Oncology outpatient (recurring) (ONCR) | payer MEDICARE, OTHER, SELFPAY ==
[2023-12-07 12:06] LABS: Basophils % 0.2 %; Eosinophils # 0.2 10^3/uL (0.0-0.8); Eosinophils % 2.2 %; Hematocrit 39.1 % (37-53); Lymphocytes % 10.6 %; Mean Corpuscular HGB Conc 31.2 g/dL (30-55); Mean Corpuscular Hemoglobin 24.4 pg (27-33); Mean Platelet Volume 8.3 fL (7.4-10.4); Monocytes # 0.6 10^3/uL (0.2-0.9); Monocytes % 6.8 %; Neutrophils # 7.44 10^3/uL (1.8-7.7); Neutrophils % 79.5 %; Nucleated Red Blood Cells % 0 %; Platelet Count 213 10^3/cmm (157-399); Red Blood Count 5.01 10^6/uL (3.85-5.65); Red Cell Distribution Width 19.9 % (12.1-15.1); White Blood Count 9.37 10^3/uL (3.29-11.43)
[2023-12-07 12:41] LABS: Alanine Aminotransferase 17 U/L (0-41); Albumin Level 3.5 g/dL (3.5-5.2); Alkaline Phosphatase 84 U/L (40-130); Anion Gap 12.3 (5-19); Aspartate Amino Transferase 9 U/L (0-40); Blood Urea Nitrogen 16 mg/dL (8-23); Carbon Dioxide 27 mmol/L (22-29); Chloride 97 mmol/L (98-107); Globulin 3.7 g/dL (1.3-4.6); Glomerular Filtration Rate 84.2 mL/min (90-130); Glucose 125 mg/dL (65-115); Osmolality Calculated 277 mOsm/kg (285-295); Potassium 4.3 mmol/L (3.5-5.1); Sodium 132 mmol/L (136-145); Total Bilirubin 0.4 mg/dL (0.15-1.2); Total Protein 7.2 g/dL (6.6-8.7)
== END 2023-12-07 23:59 | disposition home or self-care (01) ==
PROVIDERS: Nurse Practitioner Family; PCP Family Medicine; Visit Provider Internal Medicine Hematology & Oncology
DX: C61 Malignant neoplasm of prostate (principal); F17.210 Nicotine dependence, cigarettes, uncomplicated; Z92.3 Personal history of irradiation; R33.9 Retention of urine, unspecified; Z87.440 Personal history of urinary (tract) infections; Z79.2 Long term (current) use of antibiotics; N28.89 Other specified disorders of kidney and ureter; Z79.899 Other long term (current) drug therapy
CPT/HCPCS: 36415; 80053; 84153; 85025; 99214

== ENCOUNTER 2024-01-04 09:47 | Oncology outpatient (recurring) (ONCR) | payer MEDICARE, OTHER, SELFPAY ==
[2024-01-04 10:27] LABS: Basophils % 0.4 %; Eosinophils # 0.2 10^3/uL (0.0-0.8); Eosinophils % 2.4 %; Lymphocytes # 1.1 10^3/uL (0.8-4.8); Mean Corpuscular HGB Conc 30.8 g/dL (30-55); Mean Corpuscular Hemoglobin 24.9 pg (27-33); Mean Corpuscular Volume 81.1 fl (82-101); Mean Platelet Volume 8.7 fL (7.4-10.4); Monocytes # 0.4 10^3/uL (0.2-0.9); Monocytes % 4.5 %; Neutrophils # 6.37 10^3/uL (1.8-7.7); Neutrophils % 79.1 %; Nucleated Red Blood Cells % 0 %; Platelet Count 314 10^3/cmm (157-399); Red Blood Count 4.93 10^6/uL (3.85-5.65); Red Cell Distribution Width 18.3 % (12.1-15.1); White Blood Count 8.05 10^3/uL (3.29-11.43)
[2024-01-04 10:55] LABS: Alanine Aminotransferase 17 U/L (0-41); Alkaline Phosphatase 84 U/L (40-130); Anion Gap 15.3 (5-19); Aspartate Amino Transferase 10 U/L (0-40); Blood Urea Nitrogen 20 mg/dL (8-23); Calcium 9.2 mg/dL (8.5-10.5); Carbon Dioxide 26 mmol/L (22-29); Chloride 100 mmol/L (98-107); Creatinine Clr Calc Pharmacy 64.4629; Globulin 3.4 g/dL (1.3-4.6); Glomerular Filtration Rate 50.4 mL/min (90-130); Glucose 195 mg/dL (65-115); Osmolality Calculated 292 mOsm/kg (285-295); Potassium 4.3 mmol/L (3.5-5.1); Sodium 137 mmol/L (136-145); Total Bilirubin 0.5 mg/dL (0.15-1.2); Total Protein 7.4 g/dL (6.6-8.7)
== END 2024-01-07 23:59 | disposition home or self-care (01) ==
PROVIDERS: PCP Family Medicine; Visit Provider Internal Medicine Hematology & Oncology
DX: C61 Malignant neoplasm of prostate (principal)
CPT/HCPCS: 36415; 80053; 84153; 85025; 99214

== ENCOUNTER 2024-01-18 15:07 | Oncology outpatient (recurring) (ONCR) | payer MEDICARE, OTHER, SELFPAY ==
[2024-01-18] MEDS: leuprolide 22.5 mg Kit IM (15:36)
== END 2024-02-06 23:59 | disposition home or self-care (01) ==
LOC: ONCMED 15:07
PROVIDERS: PCP Family Medicine; Visit Provider Internal Medicine Hematology & Oncology
DX: C61 Malignant neoplasm of prostate (principal); Z51.11 Encounter for antineoplastic chemotherapy; Z79.899 Other long term (current) drug therapy
CPT/HCPCS: 96402; J9217

== ENCOUNTER → 2024-02-16 13:14 | Outpatient (BNVA) | payer MEDICARE, OTHER, SELFPAY | PROVIDERS: PCP Family Medicine; Visit Provider Thoracic Surgery (Cardiothoracic Vascular Surgery) | DX: I96 Gangrene, not elsewhere classified (principal); T81.31XD Disruption of external operation (surgical) wound, not elsewhere classified, subsequent encounter; Y83.8 Other surgical procedures as the cause of abnormal reaction of the patient, or of later complication, without mention of misadventure at the time of the procedure | CPT/HCPCS: 97597; 99213 ==

== ENCOUNTER 2024-02-23 11:30 | Oncology outpatient (recurring) (ONCR) | payer MEDICARE, OTHER, SELFPAY ==
[2024-02-15 13:26] LABS: Basophils % 0.5 %; Eosinophils # 0.2 10^3/uL (0.0-0.8); Eosinophils % 2.7 %; Lymphocytes # 1.4 10^3/uL (0.8-4.8); Lymphocytes % 21.9 %; Mean Corpuscular HGB Conc 32.1 g/dL (30-55); Mean Corpuscular Hemoglobin 27.4 pg (27-33); Mean Corpuscular Volume 85.2 fl (82-101); Mean Platelet Volume 8.4 fL (7.4-10.4); Monocytes # 0.4 10^3/uL (0.2-0.9); Monocytes % 5.9 %; Neutrophils # 4.53 10^3/uL (1.8-7.7); Neutrophils % 68.7 %; Nucleated Red Blood Cells % 0 %; Platelet Count 182 10^3/cmm (157-399); Red Blood Count 4.46 10^6/uL (3.85-5.65); Red Cell Distribution Width 16.2 % (12.1-15.1); White Blood Count 6.59 10^3/uL (3.29-11.43)
[2024-02-15 13:56] LABS: Alanine Aminotransferase 14 U/L (0-41); Alkaline Phosphatase 85 U/L (40-130); Anion Gap 17.2 (5-19); Aspartate Amino Transferase 13 U/L (0-40); Blood Urea Nitrogen 22 mg/dL (8-23); Calcium 9.7 mg/dL (8.5-10.5); Carbon Dioxide 22 mmol/L (22-29); Chloride 105 mmol/L (98-107); Creatinine Clr Calc Pharmacy 61.1328; Globulin 3.5 g/dL (1.3-4.6); Glomerular Filtration Rate 46.5 mL/min (90-130); Glucose 102 mg/dL (65-115); Lactate Dehydrogenase 154 U/L (135-225); Osmolality Calculated 294 mOsm/kg (285-295); Potassium 4.2 mmol/L (3.5-5.1); Prostate Specific Antigen 0.602 ng/mL (0-4); Sodium 140 mmol/L (136-145); Testosterone Total 10.6 ng/dL (193-740); Total Bilirubin 0.3 mg/dL (0.15-1.2); Total Protein 7.5 g/dL (6.6-8.7)
[2024-02-23 09:56] LABS: Basophils % 0.5 %; Eosinophils # 0.2 10^3/uL (0.0-0.8); Eosinophils % 2.9 %; Hematocrit 39.7 % (37-53); Lymphocytes # 1.1 10^3/uL (0.8-4.8); Lymphocytes % 17.5 %; Mean Corpuscular HGB Conc 31.7 g/dL (30-55); Mean Corpuscular Hemoglobin 27.7 pg (27-33); Mean Corpuscular Volume 87.3 fl (82-101); Mean Platelet Volume 8.3 fL (7.4-10.4); Monocytes # 0.4 10^3/uL (0.2-0.9); Monocytes % 6.1 %; Neutrophils # 4.56 10^3/uL (1.8-7.7); Neutrophils % 72.5 %; Nucleated Red Blood Cells % 0 %; Platelet Count 208 10^3/cmm (157-399); Red Blood Count 4.55 10^6/uL (3.85-5.65); Red Cell Distribution Width 15.9 % (12.1-15.1); White Blood Count 6.28 10^3/uL (3.29-11.43)
[2024-02-23 10:37] LABS: Alanine Aminotransferase 16 U/L (0-41); Albumin Level 4.1 g/dL (3.5-5.2); Alkaline Phosphatase 90 U/L (40-130); Anion Gap 18.5 (5-19); Aspartate Amino Transferase 14 U/L (0-40); Blood Urea Nitrogen 20 mg/dL (8-23); Calcium 9.6 mg/dL (8.5-10.5); Carbon Dioxide 24 mmol/L (22-29); Chloride 103 mmol/L (98-107); Creatinine Clr Calc Pharmacy 70.4332; Globulin 3.9 g/dL (1.3-4.6); Glomerular Filtration Rate 54.9 mL/min (90-130); Glucose 201 mg/dL (65-115); Osmolality Calculated 300 mOsm/kg (285-295); Potassium 4.5 mmol/L (3.5-5.1); Sodium 141 mmol/L (136-145); Total Bilirubin 0.4 mg/dL (0.15-1.2)
[2024-02-23 11:44] LABS: Bilirubin Urine Negative (Negative); Blood Urine 3+ (Negative); Glucose Urine UA 2+ (Normal); Ketones Urine Negative (Negative); Leukocyte Esterase Urine 1+ (Negative); Nitrate Urine Negative (Negative); Protein Urine 3+ (Negative); Specific Gravity, Urine 1.026 (1.005-1.030); Urine Appearance Cloudy (CLEAR); Urine Color Yellow (Yellow); pH Urine 5.5 (5-7)
[2024-02-23 11:46] LABS: Add Urine Microscopic? YES; Bacteria Urine None Seen /hpf; Hyaline Casts Urine 9.91 /lpf; RBC Urine 21-50 /hpf (0-2); Squamous Epithelial Cell Urine 0-5 /hpf (0-5); WBC Urine >100 /hpf (0-5)
[2024-02-23] MEDS: pembrolizumab 200 MG in sodium chloride 0.9% 250 ML 516 MG IV (11:47)
[2024-02-23 11:48] VITALS: BP 178/87; PULSE 85; RESP 17; TEMP 36.2; O2SAT 97
[2024-02-23 12:29] LABS: Add Urine Culture? Yes
[2024-02-23 12:34] VITALS: BP 167/91; PULSE 75; RESP 15; TEMP 36; O2SAT 97
== END 2024-02-23 23:59 | disposition home or self-care (01) ==
PROVIDERS: Internal Medicine Hematology & Oncology; Nurse Practitioner Family; PCP Family Medicine; Visit Provider Internal Medicine Medical Oncology
DX: C61 Malignant neoplasm of prostate (principal); Z53.9 Procedure and treatment not carried out, unspecified reason; Z51.12 Encounter for antineoplastic immunotherapy; Z79.899 Other long term (current) drug therapy; C64.1 Malignant neoplasm of right kidney, except renal pelvis; R30.0 Dysuria
CPT/HCPCS: 36415; 80053; 81001; 83615; 84153; 84403; 84443; 85025; 87086; 96413; 99214; 99215; A4222; J7050; J9271

== ENCOUNTER 2024-03-15 09:41 | Oncology outpatient (recurring) (ONCR) | payer MEDICARE, OTHER, SELFPAY ==
[2024-03-15 10:29] LABS: Basophils % 0.6 %; Eosinophils # 0.2 10^3/uL (0.0-0.8); Eosinophils % 3.5 %; Hematocrit 35.3 % (37-53); Lymphocytes % 18.9 %; Mean Corpuscular HGB Conc 32.3 g/dL (30-55); Mean Corpuscular Hemoglobin 28.8 pg (27-33); Mean Corpuscular Volume 89.1 fl (82-101); Mean Platelet Volume 8.3 fL (7.4-10.4); Monocytes # 0.3 10^3/uL (0.2-0.9); Monocytes % 5.6 %; Neutrophils # 3.69 10^3/uL (1.8-7.7); Nucleated Red Blood Cells % 0 %; Platelet Count 214 10^3/cmm (157-399); Red Blood Count 3.96 10^6/uL (3.85-5.65); Red Cell Distribution Width 15.6 % (12.1-15.1); White Blood Count 5.19 10^3/uL (3.29-11.43)
[2024-03-15 10:55] LABS: Alanine Aminotransferase 14 U/L (0-41); Alkaline Phosphatase 96 U/L (40-130); Anion Gap 17.5 (5-19); Aspartate Amino Transferase 11 U/L (0-40); Blood Urea Nitrogen 16 mg/dL (8-23); Calcium 9.1 mg/dL (8.5-10.5); Carbon Dioxide 24 mmol/L (22-29); Chloride 100 mmol/L (98-107); Creatinine Clr Calc Pharmacy 70.5729; Globulin 3.3 g/dL (1.3-4.6); Glomerular Filtration Rate 54.9 mL/min (90-130); Glucose 168 mg/dL (65-115); Osmolality Calculated 289 mOsm/kg (285-295); Potassium 4.5 mmol/L (3.5-5.1); Sodium 137 mmol/L (136-145); Thyroid Stimulating Hormone 3.94 uIU/mL (0.27-4.20); Total Bilirubin 0.2 mg/dL (0.15-1.2); Total Protein 7.3 g/dL (6.6-8.7)
[2024-03-15] MEDS: pembrolizumab 200 MG in sodium chloride 0.9% 250 ML 516 MG IV (11:47)
[2024-03-15 12:20] VITALS: BP 172/76; PULSE 78; RESP 18; TEMP 36.6; O2SAT 98
== END 2024-03-15 23:59 | disposition home or self-care (01) ==
PROVIDERS: Nurse Practitioner Family; PCP Family Medicine; Visit Provider Internal Medicine Medical Oncology
DX: C61 Malignant neoplasm of prostate (principal); Z51.12 Encounter for antineoplastic immunotherapy; C64.1 Malignant neoplasm of right kidney, except renal pelvis; Z79.899 Other long term (current) drug therapy
CPT/HCPCS: 80053; 84443; 85025; 96413; 99214; A4222; J7050; J9271

== ENCOUNTER 2024-04-05 10:45 | Oncology outpatient (recurring) (ONCR) | payer MEDICARE, OTHER, SELFPAY ==
[2024-04-05 11:06] LABS: Basophils % 0.4 %; Eosinophils # 0.2 10^3/uL (0.0-0.8); Eosinophils % 3.2 %; Hematocrit 35.9 % (37-53); Lymphocytes # 1.4 10^3/uL (0.8-4.8); Lymphocytes % 18.9 %; Mean Corpuscular HGB Conc 32.9 g/dL (30-55); Mean Corpuscular Hemoglobin 29.4 pg (27-33); Mean Corpuscular Volume 89.3 fl (82-101); Mean Platelet Volume 8.5 fL (7.4-10.4); Monocytes # 0.4 10^3/uL (0.2-0.9); Monocytes % 5.5 %; Neutrophils # 5.26 10^3/uL (1.8-7.7); Neutrophils % 71.3 %; Nucleated Red Blood Cells % 0 %; Platelet Count 242 10^3/cmm (157-399); Red Blood Count 4.02 10^6/uL (3.85-5.65); Red Cell Distribution Width 15.1 % (12.1-15.1); White Blood Count 7.39 10^3/uL (3.29-11.43)
[2024-04-05 11:36] LABS: Alanine Aminotransferase 21 U/L (0-41); Albumin Level 4.1 g/dL (3.5-5.2); Alkaline Phosphatase 90 U/L (40-130); Aspartate Amino Transferase 18 U/L (0-40); Blood Urea Nitrogen 28 mg/dL (8-23); Calcium 9.2 mg/dL (8.5-10.5); Carbon Dioxide 22 mmol/L (22-29); Chloride 100 mmol/L (98-107); Globulin 3.5 g/dL (1.3-4.6); Glomerular Filtration Rate 50.4 mL/min (90-130); Glucose 197 mg/dL (65-115); Osmolality Calculated 293 mOsm/kg (285-295); Sodium 136 mmol/L (136-145); Thyroid Stimulating Hormone 3.44 uIU/mL (0.27-4.20); Total Bilirubin 0.3 mg/dL (0.15-1.2); Total Protein 7.6 g/dL (6.6-8.7)
[2024-04-05 11:37] LABS: Anion Gap 18.4 (5-19); Potassium 4.4 mmol/L (3.5-5.1)
[2024-04-05] MEDS: pembrolizumab 200 MG in sodium chloride 0.9% 250 ML 516 MG IV (13:36)
[2024-04-05 13:42] LABS: Prostate Specific Antigen 0.092 ng/mL (0-4); Testosterone Total 6.7 ng/dL (193-740)
[2024-04-05 14:36] VITALS: BP 171/71; PULSE 94; RESP 16; TEMP 36.4; O2SAT 99
== END 2024-04-05 23:59 | disposition home or self-care (01) ==
PROVIDERS: Nurse Practitioner Family; PCP Family Medicine; Visit Provider Internal Medicine Medical Oncology
DX: C61 Malignant neoplasm of prostate (principal); Z79.899 Other long term (current) drug therapy; Z51.12 Encounter for antineoplastic immunotherapy; C64.1 Malignant neoplasm of right kidney, except renal pelvis; F17.210 Nicotine dependence, cigarettes, uncomplicated
CPT/HCPCS: 80053; 84153; 84403; 84443; 85025; 96413; 99214; A4222; J7050; J9271

== ENCOUNTER 2024-04-26 08:15 | Oncology outpatient (recurring) (ONCR) | payer MEDICARE, OTHER, SELFPAY ==
[2024-04-11 14:43] VITALS: BP 146/88; PULSE 96
[2024-04-11] MEDS: leuprolide 22.5 mg Kit IM (14:44)
[2024-04-26 08:42] LABS: Basophils % 0.4 %; Eosinophils # 0.3 10^3/uL (0.0-0.8); Eosinophils % 3.1 %; Hematocrit 36.9 % (37-53); Lymphocytes % 12.1 %; Mean Corpuscular Hemoglobin 29.3 pg (27-33); Mean Corpuscular Volume 91.6 fl (82-101); Mean Platelet Volume 8.2 fL (7.4-10.4); Monocytes # 0.5 10^3/uL (0.2-0.9); Monocytes % 6.5 %; Neutrophils # 6.32 10^3/uL (1.8-7.7); Neutrophils % 77.2 %; Nucleated Red Blood Cells % 0 %; Platelet Count 262 10^3/cmm (157-399); Red Blood Count 4.03 10^6/uL (3.85-5.65); Red Cell Distribution Width 14.2 % (12.1-15.1); White Blood Count 8.18 10^3/uL (3.29-11.43)
[2024-04-26 09:05] LABS: Alanine Aminotransferase 18 U/L (0-41); Alkaline Phosphatase 101 U/L (40-130); Anion Gap 16.3 (5-19); Aspartate Amino Transferase 14 U/L (0-40); Blood Urea Nitrogen 25 mg/dL (8-23); Calcium 8.9 mg/dL (8.5-10.5); Carbon Dioxide 25 mmol/L (22-29); Chloride 101 mmol/L (98-107); Creatinine Clr Calc Pharmacy 65.7589; Globulin 3.6 g/dL (1.3-4.6); Glomerular Filtration Rate 50.4 mL/min (90-130); Glucose 155 mg/dL (65-115); Osmolality Calculated 294 mOsm/kg (285-295); Potassium 4.3 mmol/L (3.5-5.1); Sodium 138 mmol/L (136-145); Thyroid Stimulating Hormone 4.18 uIU/mL (0.27-4.20); Total Bilirubin 0.2 mg/dL (0.15-1.2); Total Protein 7.6 g/dL (6.6-8.7)
[2024-04-26] MEDS: pembrolizumab 200 MG in sodium chloride 0.9% 250 ML 516 MG IV (10:13)
[2024-04-26 11:10] VITALS: BP 110/71; PULSE 81; RESP 18; TEMP 36.6; O2SAT 95
== END 2024-04-26 23:59 | disposition home or self-care (01) ==
PROVIDERS: Nurse Practitioner Family; PCP Family Medicine; Visit Provider Internal Medicine Medical Oncology
DX: Z53.9 Procedure and treatment not carried out, unspecified reason; Z51.12 Encounter for antineoplastic immunotherapy; C64.1 Malignant neoplasm of right kidney, except renal pelvis; C61 Malignant neoplasm of prostate; M25.512 Pain in left shoulder; F17.210 Nicotine dependence, cigarettes, uncomplicated; N28.9 Disorder of kidney and ureter, unspecified; Z79.818 Long term (current) use of other agents affecting estrogen receptors and estrogen levels
CPT/HCPCS: 80053; 84443; 85025; 96402; 96413; 99214; A4222; J7050; J9217; J9271

== ENCOUNTER 2024-05-17 08:48 | Oncology outpatient (recurring) (ONCR) | payer MEDICARE, OTHER, SELFPAY ==
[2024-05-17 09:30] LABS: Basophils % 0.5 %; Eosinophils # 0.4 10^3/uL (0.0-0.8); Eosinophils % 5.1 %; Hematocrit 36.4 % (37-53); Lymphocytes # 1.2 10^3/uL (0.8-4.8); Lymphocytes % 14.4 %; Mean Corpuscular HGB Conc 33.2 g/dL (30-55); Mean Corpuscular Hemoglobin 30.2 pg (27-33); Mean Corpuscular Volume 90.8 fl (82-101); Mean Platelet Volume 8.5 fL (7.4-10.4); Monocytes # 0.4 10^3/uL (0.2-0.9); Monocytes % 4.8 %; Neutrophils # 6.37 10^3/uL (1.8-7.7); Neutrophils % 74.8 %; Nucleated Red Blood Cells % 0 %; Platelet Count 262 10^3/cmm (157-399); Red Blood Count 4.01 10^6/uL (3.85-5.65); Red Cell Distribution Width 13.7 % (12.1-15.1)
[2024-05-17 09:55] LABS: Alanine Aminotransferase 20 U/L (0-41); Albumin Level 3.9 g/dL (3.5-5.2); Alkaline Phosphatase 109 U/L (40-130); Anion Gap 16.8 (5-19); Aspartate Amino Transferase 12 U/L (0-40); Blood Urea Nitrogen 19 mg/dL (8-23); Calcium 9.3 mg/dL (8.5-10.5); Carbon Dioxide 24 mmol/L (22-29); Chloride 102 mmol/L (98-107); Creatinine Clr Calc Pharmacy 65.6291; Globulin 3.7 g/dL (1.3-4.6); Glomerular Filtration Rate 50.4 mL/min (90-130); Glucose 230 mg/dL (65-115); Osmolality Calculated 296 mOsm/kg (285-295); Potassium 4.8 mmol/L (3.5-5.1); Prostate Specific Antigen 0.066 ng/mL (0-4); Sodium 138 mmol/L (136-145); Thyroid Stimulating Hormone 4.55 uIU/mL (0.27-4.20); Total Bilirubin 0.3 mg/dL (0.15-1.2); Total Protein 7.6 g/dL (6.6-8.7)
[2024-05-17] MEDS: pembrolizumab 200 MG in sodium chloride 0.9% 250 ML 516 MG IV (11:08)
[2024-05-17 11:47] VITALS: BP 126/74; PULSE 85; TEMP 36.3; O2SAT 97
== END 2024-05-17 23:59 | disposition home or self-care (01) ==
PROVIDERS: PCP Family Medicine; Visit Provider Internal Medicine Medical Oncology
DX: Z51.12 Encounter for antineoplastic immunotherapy (principal); C61 Malignant neoplasm of prostate; C64.1 Malignant neoplasm of right kidney, except renal pelvis; F17.210 Nicotine dependence, cigarettes, uncomplicated; N28.9 Disorder of kidney and ureter, unspecified; Z79.899 Other long term (current) drug therapy
CPT/HCPCS: 80053; 82252; 84153; 84443; 85025; 96413; 99214; J7050; J9271

== ENCOUNTER 2024-06-07 12:21 | Oncology outpatient (recurring) (ONCR) | payer MEDICARE, OTHER, SELFPAY ==
[2024-06-07 12:59] LABS: Basophils % 0.5 %; Eosinophils # 0.3 10^3/uL (0.0-0.8); Eosinophils % 3.9 %; Hematocrit 36.5 % (37-53); Lymphocytes # 1.4 10^3/uL (0.8-4.8); Lymphocytes % 16.6 %; Mean Corpuscular HGB Conc 32.3 g/dL (30-55); Mean Corpuscular Hemoglobin 29.2 pg (27-33); Mean Corpuscular Volume 90.3 fl (82-101); Mean Platelet Volume 8.6 fL (7.4-10.4); Monocytes # 0.5 10^3/uL (0.2-0.9); Monocytes % 5.9 %; Neutrophils # 6.16 10^3/uL (1.8-7.7); Neutrophils % 72.6 %; Nucleated Red Blood Cells % 0 %; Platelet Count 270 10^3/cmm (157-399); Red Blood Count 4.04 10^6/uL (3.85-5.65); Red Cell Distribution Width 13.3 % (12.1-15.1); White Blood Count 8.48 10^3/uL (3.29-11.43)
[2024-06-07 13:30] LABS: Alanine Aminotransferase 23 U/L (0-41); Albumin Level 3.9 g/dL (3.5-5.2); Alkaline Phosphatase 99 U/L (40-130); Anion Gap 16.4 (5-19); Aspartate Amino Transferase 15 U/L (0-40); Blood Urea Nitrogen 22 mg/dL (8-23); Carbon Dioxide 24 mmol/L (22-29); Chloride 99 mmol/L (98-107); Globulin 3.6 g/dL (1.3-4.6); Glomerular Filtration Rate 50.4 mL/min (90-130); Glucose 245 mg/dL (65-115); Osmolality Calculated 291 mOsm/kg (285-295); Potassium 4.4 mmol/L (3.5-5.1); Prostate Specific Antigen 0.046 ng/mL (0-4); Sodium 135 mmol/L (136-145); Testosterone Total 14.1 ng/dL (193-740); Thyroid Stimulating Hormone 3.29 uIU/mL (0.27-4.20); Total Bilirubin 0.3 mg/dL (0.15-1.2); Total Protein 7.5 g/dL (6.6-8.7)
[2024-06-07 14:41] LABS: Bacteria Urine None Seen /hpf; Hyaline Casts Urine 5.36 /lpf; Squamous Epithelial Cell Urine 0-5 /hpf (0-5); WBC Urine >100 /hpf (0-5)
[2024-06-07] MEDS: pembrolizumab 200 MG in sodium chloride 0.9% 250 ML 516 MG IV (14:53)
[2024-06-07 15:10] LABS: Add Urine Microscopic? YES; Bilirubin Urine Neg (Negative); Blood Urine 2+ (Negative); Glucose Urine UA 2+ (Normal); Ketones Urine Negative (Negative); Leukocyte Esterase Urine 1+ (Negative); Nitrate Urine Negative (Negative); Protein Urine 3+ (Negative); Urine Appearance Slightly Cloudy (CLEAR); Urine Color Yellow (Yellow); Urobilinogen Urine Norm (Negative); pH Urine 5 (5-7)
[2024-06-07 15:11] LABS: Add Urine Culture? Yes
[2024-06-07 15:35] VITALS: BP 151/83; PULSE 84; RESP 16; TEMP 36.7; O2SAT 98
== END 2024-06-07 23:59 | disposition home or self-care (01) ==
PROVIDERS: Nurse Practitioner Family; PCP Family Medicine; Visit Provider Internal Medicine Medical Oncology
DX: Z51.12 Encounter for antineoplastic immunotherapy (principal); C61 Malignant neoplasm of prostate; C64.1 Malignant neoplasm of right kidney, except renal pelvis; R30.0 Dysuria; R35.1 Nocturia; F17.210 Nicotine dependence, cigarettes, uncomplicated; Z79.899 Other long term (current) drug therapy
CPT/HCPCS: 80053; 81001; 84153; 84403; 84443; 85025; 87086; 96413; 99214; A4222; J7050; J9271

== ENCOUNTER 2024-06-28 13:09 | Oncology outpatient (recurring) (ONCR) | payer MEDICARE, OTHER, SELFPAY ==
[2024-06-28 13:29] LABS: Basophils % 0.4 %; Eosinophils # 0.4 10^3/uL (0.0-0.8); Eosinophils % 3.5 %; Hematocrit 37.5 % (37-53); Lymphocytes # 1.5 10^3/uL (0.8-4.8); Lymphocytes % 14.9 %; Mean Corpuscular HGB Conc 32.3 g/dL (30-55); Mean Corpuscular Hemoglobin 28.3 pg (27-33); Mean Corpuscular Volume 87.8 fl (82-101); Mean Platelet Volume 8.5 fL (7.4-10.4); Monocytes # 0.6 10^3/uL (0.2-0.9); Monocytes % 5.8 %; Nucleated Red Blood Cells % 0 %; Platelet Count 284 10^3/cmm (157-399); Red Blood Count 4.27 10^6/uL (3.85-5.65); Red Cell Distribution Width 13.2 % (12.1-15.1); White Blood Count 10.13 10^3/uL (3.29-11.43)
[2024-06-28 14:00] LABS: Alanine Aminotransferase 25 U/L (0-41); Albumin Level 4.1 g/dL (3.5-5.2); Alkaline Phosphatase 125 U/L (40-130); Anion Gap 17.7 (5-19); Aspartate Amino Transferase 15 U/L (0-40); Blood Urea Nitrogen 21 mg/dL (8-23); Calcium 9.3 mg/dL (8.5-10.5); Carbon Dioxide 23 mmol/L (22-29); Chloride 102 mmol/L (98-107); Creatinine Clr Calc Pharmacy 65.7589; Globulin 3.7 g/dL (1.3-4.6); Glomerular Filtration Rate 50.4 mL/min (90-130); Glucose 175 mg/dL (65-115); Osmolality Calculated 293 mOsm/kg (285-295); Potassium 4.7 mmol/L (3.5-5.1); Sodium 138 mmol/L (136-145); Thyroid Stimulating Hormone 3.02 uIU/mL (0.27-4.20); Total Bilirubin 0.2 mg/dL (0.15-1.2); Total Protein 7.8 g/dL (6.6-8.7)
[2024-06-28] MEDS: pembrolizumab 200 MG in sodium chloride 0.9% 250 ML 516 MG IV (15:09)
[2024-06-28 15:46] VITALS: BP 146/80; PULSE 101; RESP 17; TEMP 36.1; O2SAT 97
== END 2024-06-28 23:59 | disposition home or self-care (01) ==
PROVIDERS: Nurse Practitioner Family; PCP Family Medicine; Visit Provider Internal Medicine Medical Oncology
DX: Z51.12 Encounter for antineoplastic immunotherapy (principal); C61 Malignant neoplasm of prostate; C64.1 Malignant neoplasm of right kidney, except renal pelvis; F17.210 Nicotine dependence, cigarettes, uncomplicated; Z79.899 Other long term (current) drug therapy
CPT/HCPCS: 80053; 84443; 85025; 96413; 99214; A4222; J7050; J9271

== ENCOUNTER 2024-07-04 15:00 | Oncology outpatient (recurring) (ONCR) | payer MEDICARE, OTHER, SELFPAY ==
--- NOTE | 2024-07-01 13:14 | US_ITS ---
WS: [id number] RENAL ULTRASOUND URINARY BLADDER ULTRASOUND HISTORY: nocturia 7-8 times/night COMPARISON: None available. TECHNIQUE: 2-D and color Doppler imaging of the kidney submitted. Right kidney: Prior RIGHT nephrectomy. No mass in the renal bed. Left kidney: 11.7 (cm) cm x 6.2 (cm) cm x 6.1 (cm) cm. Normal echogenicity with no hydronephrosis or mass. Aorta: Normal. Urinary Bladder: Minimally distended urinary bladder. Prevoid volume: 104 mL. Post void volume: 29 mL. US/US renal BI with PV bladder IMPRESSION: 1. Status post RIGHT nephrectomy. 2. Negative LEFT kidney. No hydronephrosis or atrophy. 3. No significant post void residual. Limited prevoid distention of the urinar y bladder.
[2024-07-04 15:34] VITALS: BP 155/90; PULSE 94; RESP 16; TEMP 36.3; O2SAT 97
[2024-07-04] MEDS: leuprolide 22.5 mg Kit IM (15:36)
== END 2024-07-06 23:59 | disposition home or self-care (01) ==
PROVIDERS: PCP Family Medicine; Visit Provider Nurse Practitioner Family
DX: Z53.9 Procedure and treatment not carried out, unspecified reason (principal); Z51.11 Encounter for antineoplastic chemotherapy; C64.1 Malignant neoplasm of right kidney, except renal pelvis; C61 Malignant neoplasm of prostate; Z79.818 Long term (current) use of other agents affecting estrogen receptors and estrogen levels
CPT/HCPCS: 76770; 76857; 96401; J9217

== ENCOUNTER 2024-07-19 12:45 | Oncology outpatient (recurring) (ONCR) | payer MEDICARE, OTHER, SELFPAY ==
--- NOTE | 2024-07-08 12:30 | PETR_ITS ---
PROCEDURE INFORMATION: Exam: PET/CT Skull Base to Mid-thigh Exam date and time: 07/08/2024 1:11 PM Age: 68 years old Clinical indication: Restaging of renal cell carcinoma; Prior surgery; Surgery date: 6+ months; Surgery type: Right nephrectomy 01/2024. Prior history of prostate cancer treated with brachytherapy. LABS AND CLINICAL REPORTS: Glucose: 88 mg/dl Treatment strategy for malignancy (PET staging): Restaging (PS) TECHNIQUE: Imaging protocol: Following at least four-hour fasting and following the injection of radiopharmaceutical, low dose CT images were obtained. Then, PET images were obtained. Attenuation corrected images were constructed using the CT scan. Fused images of PET and CT were reviewed. The standardized uptake values (SUV) reported below are maximum values within a region of interest, expressed in gm/ml. Exam includes orbital meatal line to mid-thigh. SUV normalization method: BodyWeight Radiopharmaceutical: 11.47 mCi F-18 FDG (Fluorodeoxyglucose), IV. Time of imaging post radiopharmaceutical administration: 47 minutes Injection site: LEFT AC COMPARISON: CT abdomen pelvis w con 09/07/2023 FINDINGS: Brain: Normal physiologic uptake. Pharynx: No abnormal uptake. Larynx: No abnormal uptake. Thyroid: 0.9 cm nodule in the upper aspect of the right thyroid lobe measures 10.6 SUV. Lungs, pleura and trachea: No abnormal uptake. 0.8 cm subpleural nodular opacity medially in the right middle lobe abutting the pleura on series 202, image 128 stable in size since 09/07/2023 is suggestive of benign finding, possibly a base of tiny atelectasis rather than lung nodule. There is stable calcified granuloma in the lingula. No pleural effusion Heart: No abnormal uptake. There is no cardiomegaly. Coronary artery calcification is present. There is no pericardial effusion. Mediastinal space: No abnormal uptake. Liver: No abnormal uptake. Maximum uptake is 3.6 SUV. The liver is enlarged (19.5 cm in the craniocaudal span with severe fatty changes with maximal density of liver parenchyma diminished to 18 Hounsfield units. Gallbladder and biliary ducts: No abnormal uptake. Pancreas: No abnormal uptake. Spleen: No abnormal uptake. No splenomegaly. Adrenal glands: No abnormal uptake. Stable benign left adrenal adenoma with maximum thickness of 2 cm. Kidneys and ureters: Normal physiologic uptake in the left kidney. Status post right nephrectomy. Stomach and bowel: Increased uptake in the right and left colon and in multiple loops of small bowel with no corresponding CT abnormality is benign. Intraperitoneal and retroperitoneal spaces: No abnormal uptake. No ascites. Bladder: Normal physiologic uptake. Reproductive: No abnormal uptake. Multiple metallic seeds of brachytherapy present within normal size prostate. Vasculature: No abnormal uptake. No aortic aneurysm. Lymph nodes: No FDG avid lymphadenopathy in the neck, chest, abdomen, pelvis, and extremities. Skeleton: No abnormal uptake in the visualized axial and appendicular skeleton. 1 cm Schmorl nodule in the upper endplate of L1 with new sclerotic margin in comparison with prior exam of 2023 (axial image 176). Soft tissues: Slightly increased uptake of 2.4 SUV within the subcutaneous cluster of tiny nodules and hazy opacity in the subcutaneous fat in the right upper anterior abdominal wall (axial image 166) persistent since prior exam suggestive of benign finding. PET/PET skull to thigh INIT [id number] IMPRESSION: 1. No abnormal radiotracer uptake to suggest local recurrence or metastatic disease. 2. Intense uptake of 10.6 SUV within small right thyroid nodule is suggestive of primary thyroid neoplasm. Further evaluation with ultrasound is recommended.
[2024-07-19 12:54] LABS: Basophils % 0.4 %; Eosinophils # 0.3 10^3/uL (0.0-0.8); Eosinophils % 3.3 %; Hematocrit 36.5 % (37-53); Lymphocytes # 1.8 10^3/uL (0.8-4.8); Lymphocytes % 18.5 %; Mean Corpuscular HGB Conc 32.6 g/dL (30-55); Mean Corpuscular Hemoglobin 28.1 pg (27-33); Mean Corpuscular Volume 86.1 fl (82-101); Mean Platelet Volume 8.5 fL (7.4-10.4); Monocytes # 0.6 10^3/uL (0.2-0.9); Monocytes % 5.7 %; Neutrophils # 7.13 10^3/uL (1.8-7.7); Neutrophils % 71.6 %; Nucleated Red Blood Cells % 0 %; Platelet Count 281 10^3/cmm (157-399); Red Blood Count 4.24 10^6/uL (3.85-5.65); Red Cell Distribution Width 13.4 % (12.1-15.1); White Blood Count 9.96 10^3/uL (3.29-11.43)
[2024-07-19 13:25] LABS: Alanine Aminotransferase 22 U/L (0-41); Albumin Level 3.8 g/dL (3.5-5.2); Alkaline Phosphatase 94 U/L (40-130); Anion Gap 19.7 (5-19); Aspartate Amino Transferase 17 U/L (0-40); Blood Urea Nitrogen 24 mg/dL (8-23); Calcium 9.2 mg/dL (8.5-10.5); Carbon Dioxide 20 mmol/L (22-29); Chloride 101 mmol/L (98-107); Globulin 3.5 g/dL (1.3-4.6); Glomerular Filtration Rate 43.2 mL/min (90-130); Glucose 155 mg/dL (65-115); Osmolality Calculated 289 mOsm/kg (285-295); Potassium 4.7 mmol/L (3.5-5.1); Sodium 136 mmol/L (136-145); Total Bilirubin 0.2 mg/dL (0.15-1.2); Total Protein 7.3 g/dL (6.6-8.7)
[2024-07-19 13:28] LABS: Creatinine Clr Calc Pharmacy 57.4255
[2024-07-19] MEDS: pembrolizumab 200 MG in sodium chloride 0.9% 250 ML 516 MG IV (14:47)
[2024-07-19 15:28] VITALS: BP 138/70; PULSE 85; RESP 17; TEMP 36.8; O2SAT 94
== END 2024-07-19 23:59 | disposition home or self-care (01) ==
PROVIDERS: PCP Family Medicine; Visit Provider Internal Medicine Medical Oncology
DX: Z53.9 Procedure and treatment not carried out, unspecified reason (principal); Z51.12 Encounter for antineoplastic immunotherapy; C64.1 Malignant neoplasm of right kidney, except renal pelvis; F17.210 Nicotine dependence, cigarettes, uncomplicated; C61 Malignant neoplasm of prostate; Z79.818 Long term (current) use of other agents affecting estrogen receptors and estrogen levels; E04.1 Nontoxic single thyroid nodule; Z92.3 Personal history of irradiation; R30.0 Dysuria; Z79.899 Other long term (current) drug therapy
CPT/HCPCS: 78815; 80053; 84443; 85025; 96413; 99214; A4222; A9552; J7050; J9271

== ENCOUNTER 2024-07-27 12:05 | Oncology outpatient (recurring) (ONCR) | payer MEDICARE, OTHER, SELFPAY ==
--- NOTE | 2024-07-27 12:09 | US_ITS ---
WS: [id number] THYROID ULTRASOUND HISTORY: THYROID NODULE COMPARISON: PET/CT 07/08/2024 Right lobe: 1.5 cm x 1.7 cm x 3.6 cm (w x ap x l). Volume: 4.3 cm3. Normal sized gland. Hypoechoic round nodule superior RIGHT thyroid measures 0.7 x 0.8 x 1.3 cm. This nodule corresponds to the PET CT finding. Nodule is slightly taller than it is wide and there is mild variable echogenicity. No echogenic foci. Left lobe: 1.5 cm x 2.1 cm x 3.9 cm (w x ap x l). Volume: 5.7 cm3. Normal size and echotexture. No significant or dominant nodules are present. Isthmus: 0.3 cm. US/US thyroid [id number] IMPRESSION: 1. TI-RADS 5; very hypoechoic nodule superior pole RIGHT thyroid. Nodule was a lso positive on recent PET/CT. Recommend follow-up ultrasound-guided fine-needl e aspiration. 2. Negative LEFT thyroid.
== END 2024-08-06 23:59 | disposition home or self-care (01) ==
LOC: RAD 12:08 → ONCMED 07-28 09:07
PROVIDERS: PCP Family Medicine; Visit Provider Nurse Practitioner Family
DX: E04.1 Nontoxic single thyroid nodule (principal)
CPT/HCPCS: 76536

== ENCOUNTER 2024-08-09 13:32 | Oncology outpatient (recurring) (ONCR) | payer MEDICARE, OTHER, SELFPAY ==
[2024-08-09 13:56] LABS: Basophils % 0.5 %; Eosinophils # 0.4 10^3/uL (0.0-0.8); Hematocrit 35.5 % (37-53); Lymphocytes # 1.5 10^3/uL (0.8-4.8); Lymphocytes % 16.9 %; Mean Corpuscular HGB Conc 32.4 g/dL (30-55); Mean Corpuscular Hemoglobin 27.6 pg (27-33); Mean Corpuscular Volume 85.3 fl (82-101); Mean Platelet Volume 8.5 fL (7.4-10.4); Monocytes # 0.5 10^3/uL (0.2-0.9); Monocytes % 5.7 %; Neutrophils % 72.4 %; Nucleated Red Blood Cells % 0 %; Platelet Count 283 10^3/cmm (157-399); Red Blood Count 4.16 10^6/uL (3.85-5.65); Red Cell Distribution Width 13.3 % (12.1-15.1); White Blood Count 8.82 10^3/uL (3.29-11.43)
[2024-08-09 14:30] LABS: Alanine Aminotransferase 20 U/L (0-41); Albumin Level 3.7 g/dL (3.5-5.2); Alkaline Phosphatase 113 U/L (40-130); Anion Gap 18.3 (5-19); Aspartate Amino Transferase 14 U/L (0-40); Blood Urea Nitrogen 18 mg/dL (8-23); Calcium 8.9 mg/dL (8.5-10.5); Carbon Dioxide 20 mmol/L (22-29); Chloride 98 mmol/L (98-107); Globulin 3.6 g/dL (1.3-4.6); Glomerular Filtration Rate 46.5 mL/min (90-130); Glucose 287 mg/dL (65-115); Osmolality Calculated 286 mOsm/kg (285-295); Potassium 4.3 mmol/L (3.5-5.1); Sodium 132 mmol/L (136-145); Thyroid Stimulating Hormone 2.87 uIU/mL (0.27-4.20); Total Bilirubin 0.2 mg/dL (0.15-1.2); Total Protein 7.3 g/dL (6.6-8.7)
[2024-08-09] MEDS: pembrolizumab 200 MG in sodium chloride 0.9% 250 ML 516 MG IV (15:35)
[2024-08-09 16:10] VITALS: BP 147/78; PULSE 68; RESP 18; TEMP 36.1; O2SAT 98
== END 2024-08-09 23:59 | disposition home or self-care (01) ==
PROVIDERS: PCP Family Medicine; Visit Provider Nurse Practitioner Family
DX: Z51.12 Encounter for antineoplastic immunotherapy (principal); C64.1 Malignant neoplasm of right kidney, except renal pelvis; C61 Malignant neoplasm of prostate; F17.210 Nicotine dependence, cigarettes, uncomplicated; R30.0 Dysuria; Z79.899 Other long term (current) drug therapy
CPT/HCPCS: 80053; 84443; 85025; 96413; 99214; A4222; J7050; J9271

== ENCOUNTER 2024-08-13 20:16 | Emergency (ER) | payer MEDICARE, OTHER, SELFPAY ==
[2024-08-13 20:29] VITALS: BP 154/88; PULSE 122; RESP 16; TEMP 36.9; O2SAT 97; BMI 38.1
[2024-08-13 22:00] LABS: Bilirubin Urine Negative (Negative); Blood Urine 2+ (Negative); Glucose Urine UA 1+ (Normal); Ketones Urine Trace (Negative); Leukocyte Esterase Urine 2+ (Negative); Nitrate Urine Negative (Negative); Protein Urine 3+ (Negative); Specific Gravity, Urine 1.022 (1.005-1.030); Urine Appearance Cloudy (CLEAR); Urine Color Yellow (Yellow)
[2024-08-13 22:03] VITALS: BP 153/90; PULSE 114; RESP 18; O2SAT 95
[2024-08-13 22:05] LABS: Bacteria Urine None Seen /hpf; Hyaline Casts Urine 78.18 /lpf; RBC Urine 21-50 /hpf (0-2); Squamous Epithelial Cell Urine 0-5 /hpf (0-5); Universal Test for UA Present (0); WBC Urine >100 /hpf (0-5)
[2024-08-13 22:25] LABS: UA Slide Review UA Slide Review Perf
[2024-08-13 22:43] LABS: Add Urine Culture? Yes
[2024-08-13 23:35] VITALS: RESP 17
[2024-08-13] MEDS: oxyCODONE-APAP 5-325 mg Tablet 1 TAB PO (23:35)
[2024-08-13 23:36] LABS: Basophils # 0.1 10^3/uL (0.0-0.1); Basophils % 0.4 %; Eosinophils # 0.1 10^3/uL (0.0-0.8); Hematocrit 36.6 % (37-53); Lymphocytes # 1.5 10^3/uL (0.8-4.8); Lymphocytes % 12.2 %; Mean Corpuscular HGB Conc 32.5 g/dL (30-55); Mean Corpuscular Hemoglobin 27.5 pg (27-33); Mean Corpuscular Volume 84.7 fl (82-101); Mean Platelet Volume 8.5 fL (7.4-10.4); Monocytes # 0.6 10^3/uL (0.2-0.9); Monocytes % 4.8 %; Neutrophils % 81.2 %; Nucleated Red Blood Cells % 0 %; Platelet Count 289 10^3/cmm (157-399); Red Blood Count 4.32 10^6/uL (3.85-5.65); Red Cell Distribution Width 13.5 % (12.1-15.1); White Blood Count 11.95 10^3/uL (3.29-11.43)
[2024-08-13] MEDS: piperacillin-tazobactam 3.375 GM in sodium chloride 0.9% (plus) 50 ML IV (23:36)
[2024-08-13] MEDS: sodium chloride 0.9% 1,000 ML 999 ML IV (23:36)
[2024-08-13 23:56] LABS: Alanine Aminotransferase 22 U/L (0-41); Alkaline Phosphatase 113 U/L (40-130); Anion Gap 15.7 (5-19); Aspartate Amino Transferase 13 U/L (0-40); Blood Urea Nitrogen 24 mg/dL (8-23); Calcium 9.6 mg/dL (8.5-10.5); Carbon Dioxide 22 mmol/L (22-29); Chloride 101 mmol/L (98-107); Globulin 3.7 g/dL (1.3-4.6); Glomerular Filtration Rate 43.2 mL/min (90-130); Glucose 200 mg/dL (65-115); Osmolality Calculated 288 mOsm/kg (285-295); Potassium 4.7 mmol/L (3.5-5.1); Sodium 134 mmol/L (136-145); Total Bilirubin 0.3 mg/dL (0.15-1.2); Total Protein 7.7 g/dL (6.6-8.7)
[2024-08-14 00:51] VITALS: BP 183/97; PULSE 73; RESP 18; O2SAT 99
--- NOTE | 2024-08-14 01:01 | ED_ITS ---
HPI - Male Genitourinary 2 General: Chief complaint: Urogenital-Male Stated complaint: can not pee all day. lo Time Seen by Provider: 08/13/24 21:30 History of Present Illness: Patient with history of prostate cancer status post radiation therapy, UroLift procedure, bladder stone removal, and right nephrectomy presents with urinary retention and burning with urination. Symptoms began last night with progressively worsening dysuria and urinary frequency. Patient reports only small amounts of urine output with significant burning. Vallejo catheter was placed, and urine sample was obtained, which appeared infected. No pain reported in the remaining kidney. Denies medication allergies. Patient is currently receiving Keytruda. No prior similar episodes except for previous urinary tract infections. Difficulty accessing urologist due to distance. Sister present at bedside confirms symptoms and history. Related Data Home Medications ?Medication ?Instructions ?Recorded ?Confirmed glimepiride 4 mg tablet 4 mg PO DAILY 03/16/2008/09 sitagliptin phosphate 100 mg 100 mg PO DAILY 03/16/20 08/09/24 tablet (Januvia) olmesartan 20 mg tablet mg PO 12/07/23 08/09/24 metformin 500 mg tablet,extended mg PO 04/05/24 release 24 hr insulin glargine 100 unit/mL (3 unit SUBCUT 06/28/24 0 08/09/24 mL) subcutaneous pen (Lantus Solostar U-100 Insulin) Previous Rx's ?Medication ?Instructions ?Recorded sulfamethoxazole 800 1 tab PO BID 14 days #28 tab s 08/14/24 mg-trimethoprim 160 mg tablet (Bactrim DS) Allergies Allergy/AdvReac Type Severity Reaction Status Date / Time No Known Allergies Allergy Verified 08/09/24 14:04 PFS ED 2 PFSH: Medical History Hypertension Type 2 diabetes mellitus Prostate cancer Uric acid urolithiasis Urinary retention Surgical History History of prostate biopsy (04/09/23) TRUSP with biopsies Hx of cataract extraction Family History Father Aspiration into airway Mother Diabetes Other Cancer Social History Smoking and tobacco/nicotine status: current some day tobacco/nicotine user cigarettes Packs smoked per day: 1 Years cigarettes smoked: 50 Alcohol intake: current Alcohol intake frequency: holidays/special occasions only Substance/Drug Use: never Marital status: Current occupational status: retired Physical Exam 2 Const: COMMON NORMALS: no acute distress, patient oriented x3 and alert HENMT: COMMON NORMALS: normocephalic and atraumatic HEAD & SCALP: n ormocephalic and atraumatic Eye: COMMON NORMALS: Equal, round and reactive pupils present, EOMs intact bilaterally and no scleral icterus PUPIL: Yes Equal, round and reactive pupils present Resp: COMMON NORMALS: normal respiratory effort and No retractions Cardio: COMMON NORMALS: regular rate, regular rhythm and No murmurs present (Cardio) RATE: regular rate RHYTHM: regular rhythm GI: COMMON NORMALS: Normal to inspection, nondistended, normoactive bowel sounds present and Soft to palpation PALPATION: Yes Soft to palpation O THER: Mild suprapubic tenderness : OTHER: Vallejo catheter in place with normal appearance externally. Neuro: COMMON NORMALS: patient oriented x3 SENSORIUM/ORIENTATION: Yes alert Skin: COMMON NORMALS: no rashes or lesions noted GENERAL SKIN EXAM: no rashes or lesions noted Course 2 Vital Signs: Vital signs: Vital Signs Temperature 98.4 F 08/13/24 20:29 Pulse Rate 73 08/14/24 00:51 Respiratory Rate 18 08/14/24 00:51 Blood Pressure 183/97 08/14/24 00:51 Pulse Oximetry 99 08/14/24 00:51 Oxygen Delivery Me thod Room Air 08/13/24 22:03 [facility] - Male Medical Decision Making In summary, patient is a 60-year-old male with history of prostate cancer and difficulty urinating seen for dysuria and frequency and suprapubic pressure. Vallejo catheter was placed giving him significant relief. Urinalysis is concerning for infection and he has had prior UTIs which were resistant to many medications. Prior culture from 2023 shows sensitivity to Bactrim for should be given a 14-day course. I advised him to follow-up closely with his urologist in [place] for definitive management of the catheter. Lab Data 08/13/24 23:30 08/13/24 23:30 Laboratory Results WBC 11.95 10^3/uL (3.29-11.43) H 08/13/24 23: RBC 4.32 10^6/uL (3.85-5.65) 08/13/24 23: Hgb 11.90 g/dL (11.27-16.99) 08/13/24 23: Hct 36.6 % (37-53) L 08/13/24 23: MCV 84.7 fl (82-101) 08/13/24 23: MCH 27.5 pg (27-33) 08/13/24: MCHC 32.5 g/dL (30-55) 08/13/24: RDW 13.5 % (12.1-15.1) 08/13/24: Plt Count 289 10^3/cmm (157-399) 08/13/24: MPV 8.5 fL (7.4-10.4) 08/13/24 23: Neut % (Auto) 81.2 % 08/13/24 23: Lymph % (Auto) 12.2 % 08/13/24 23:30 [place] % (Auto) 4.8 % 08/13/24 23: Eos % (Auto) 1.0 % 08/13/24: Baso % (Auto) 0.4 % 08/13/24: Neut # (Auto) 9.70 10^3/uL (1.8-7.7) H 08/13/24 23: Lymph # (Auto) 1.5 10^3/uL (0.8-4.8) 08/13/24: [place] # (Auto) 0.6 10^3/uL (0.2-0.9) 08/13/24: Eos # (Auto) 0.1 10^3/uL (0.0-0.8) 08/13/24: Baso # (Auto) 0.1 10^3/uL (0.0-0.1) 08/13/24: Nucleated RBC % (auto) 0 % 08/13/24: Nucleated RBCs # 0.0 /100WBC 08/13/24 23:30 Sodium 134 mmol/L (136-145) L 08/13/24 23:30 Potassium 4.7 mmol/L (3.5-5.1) 08/13/24 23:30 Chloride 101 mmol/L (98-107) 08/13/24 23:30 Carbon Dioxide 22 mmol/L (22-29) 08/13/24 23:30 Anion Gap 15.7 (5-19) 08/13/24 23:30 BUN 24 mg/dL (8-23) H 08/13/24 23:30 Creatinine 1.6 mg/dL (0.7-1.2) H 08/13/24 23:30 GFR Calculation 43.2 mL/min (90-130) L 08/13/24 23: Glucose 200 mg/dL (65-115) H 08/13/24 23:30 Calculated Osmolality 288 mOsm/kg (285-295) 08/13/24 23: Calcium 9.6 mg/dL (8.5-10.5) 08/13/24 23:30 Total Bilirubin 0.3 mg/dL (0.15-1.2) 08/13/24 23:30 AST 13 U/L (0-40) 08/13/24 23:30 ALT 22 U/L (0-41) 08/13/24 23:30 Alkaline Phosphatase 113 U/L (40-130) 08/13/24 23:30 Total Protein 7.7 g/dL (6.6-8.7) 08/13/24 23: Albumin 4.0 g/dL (3.5-5.2) 08/13/24 23:30 Globulin 3.7 g/dL (1.3-4.6) 08/13/24 23:30 Urine Color Yellow (Yellow) 08/13/24 21:50 Urine Appearance Cloudy (CLEAR) A 08/13/24 21:50 Urine pH 5.0 (5-7) 08/13/24:50 Ur Specific [place] 1.022 (1.005-1.030) 08/13/24 21:50 Urine Protein 3+ (Negative) A 08/13/24 21:50 Urine Glucose (UA) 1+ (Normal) H 08/13/24 21:50 Urine Ketones Trace (Negative) 08/13/24 21:50 Urine Blood 2+ (Negative) A 08/13/24 21:50 Urine Nitrate Negative (Negative) 08/13/24 21:50 Urine Bilirubin Negative (Negative) 08/13/24 21:50 Urine Urobilinogen 1.0 mg/dL (Negative) 08/13/24 21:50 Ur Leukocyte Esterase 2+ (Negative) A 08/13/24 21:50 Urine RBC 21-50 /hpf (0-2) H 08/13/24 21:50 Urine WBC >100 /hpf (0-5) H 08/13/24 21:50 Ur Squamous Epith Cells 0-5 /hpf (0-5) 08/13/24 21:50 Amorphous Sediment Not Reportable 08/13/24 21:50 Urine Bacteria None seen /hpf (NONE) 08/13/24 21:50 Hyaline Casts 78.18 /lpf 08/13/24 21:50 Urine Yeast 1+ /hpf H 08/13/24 21:50 No radiology studies performed this visit Discharge Plan Discharge Patient Disposition: Home Clinical Impression: Acute UTI Condition: Stable Prescriptions: New sulfamethoxazole-trimethoprim [Bactrim DS] 800-160 mg tablet 1 tab PO BID 14 Days Qty: 28 0RF No Action olmesartan 20 mg tablet PO metformin 500 mg tablet extended release 24 hr PO insulin glargine [Lantus Solostar U-100 Insulin] 100 unit/mL (3 mL) insulin pen SUBCUT glimepiride 4 mg Tablet 4 mg PO DAILY Januvia 100 mg Tablet 100 mg PO DAILY Discharge Orders: Discharge ED (Routine); Ordered 08/14/24 Ordered By: Rickey Gonzales Referrals: Dulce Maria Clay DO [Primary Care Provider, [facility]] Discharge Diet: Advance as tolerated Discharge Activity: Increase activity as tolerated Patient Instructions: Vallejo Catheter Care, Urinary Tract Infection in Men (ED) Activity Restrictions/Additional Instructions: When you got to the emergency department, you are suffering from urinary retention requiring a Vallejo catheter to be placed. Urine test is concerning for infection. Prior culture showed sensitivity to Bactrim but resistance to many other oral medications. Please follow-up with your urologist as soon as possible for definitive management of your Vallejo urinary catheter Print Language: Citizen Of [place] Coding Level of Care Code ED Assistant Tennis Professional for Leisa Whittaker
== END 2024-08-14 00:45 | disposition home or self-care (01) ==
PROVIDERS: Emergency Provider Student in an Organized Health Care Education/Training Program; PCP Family Medicine
DX: N39.0 Urinary tract infection, site not specified (principal); Z79.84 Long term (current) use of oral hypoglycemic drugs; Z79.4 Long term (current) use of insulin; F17.210 Nicotine dependence, cigarettes, uncomplicated; E11.9 Type 2 diabetes mellitus without complications; I10 Essential (primary) hypertension; Z85.46 Personal history of malignant neoplasm of prostate
CPT/HCPCS: 36415; 51702; 80053; 81001; 85025; 87086; 96365; 99284; J2543; J7030; J9999

== ENCOUNTER 2024-08-30 08:41 | Oncology outpatient (recurring) (ONCR) | payer MEDICARE, OTHER, SELFPAY ==
[2024-08-30 09:04] LABS: Basophils # 0.1 10^3/uL (0.0-0.1); Basophils % 0.6 %; Eosinophils # 0.2 10^3/uL (0.0-0.8); Eosinophils % 2.8 %; Hematocrit 38.3 % (37-53); Lymphocytes # 1.3 10^3/uL (0.8-4.8); Lymphocytes % 15.5 %; Mean Corpuscular HGB Conc 30.5 g/dL (30-55); Mean Corpuscular Hemoglobin 27.1 pg (27-33); Mean Corpuscular Volume 88.7 fl (82-101); Mean Platelet Volume 8.3 fL (7.4-10.4); Monocytes # 0.5 10^3/uL (0.2-0.9); Monocytes % 6.1 %; Neutrophils # 6.32 10^3/uL (1.8-7.7); Neutrophils % 74.8 %; Nucleated Red Blood Cells % 0 %; Platelet Count 285 10^3/cmm (157-399); Red Blood Count 4.32 10^6/uL (3.85-5.65); Red Cell Distribution Width 14.1 % (12.1-15.1); White Blood Count 8.46 10^3/uL (3.29-11.43)
[2024-08-30 09:30] LABS: Alanine Aminotransferase 13 U/L (0-41); Albumin Level 3.8 g/dL (3.5-5.2); Alkaline Phosphatase 141 U/L (40-130); Anion Gap 18.1 (5-19); Aspartate Amino Transferase 11 U/L (0-40); Blood Urea Nitrogen 32 mg/dL (8-23); Calcium 8.9 mg/dL (8.5-10.5); Carbon Dioxide 18 mmol/L (22-29); Chloride 104 mmol/L (98-107); Globulin 3.7 g/dL (1.3-4.6); Glomerular Filtration Rate 28.4 mL/min (90-130); Glucose 164 mg/dL (65-115); Osmolality Calculated 291 mOsm/kg (285-295); Potassium 5.1 mmol/L (3.5-5.1); Sodium 135 mmol/L (136-145); Thyroid Stimulating Hormone 3.92 uIU/mL (0.27-4.20); Total Bilirubin 0.2 mg/dL (0.15-1.2); Total Protein 7.5 g/dL (6.6-8.7)
[2024-08-30] MEDS: sodium chloride 0.9% 1,000 ML 999 ML IV (10:58)
[2024-08-30] MEDS: pembrolizumab 200 MG in sodium chloride 0.9% 250 ML 516 MG IV (11:20)
[2024-08-30 12:45] VITALS: BP 147/85; PULSE 71; RESP 17; TEMP 36; O2SAT 99
== END 2024-08-30 23:59 | disposition home or self-care (01) ==
PROVIDERS: PCP Family Medicine; Visit Provider Nurse Practitioner Family
DX: Z51.12 Encounter for antineoplastic immunotherapy (principal); C64.1 Malignant neoplasm of right kidney, except renal pelvis; C61 Malignant neoplasm of prostate; F17.210 Nicotine dependence, cigarettes, uncomplicated; Z90.5 Acquired absence of kidney; N39.0 Urinary tract infection, site not specified; R33.9 Retention of urine, unspecified; E04.1 Nontoxic single thyroid nodule; Z96.0 Presence of urogenital implants; Z79.899 Other long term (current) drug therapy
CPT/HCPCS: 80053; 84443; 85025; 96360; 96413; 99213; A4222; J7030; J7050; J9271

== ENCOUNTER 2024-09-20 09:01 | Oncology outpatient (recurring) (ONCR) | payer MEDICARE, OTHER, SELFPAY ==
[2024-09-20 09:28] LABS: Hematocrit 31.9 % (37-53); Hemoglobin 10.00 g/dL (11.27-16.99); Mean Corpuscular HGB Conc 31.3 g/dL (30-55); Mean Corpuscular Hemoglobin 27.0 pg (27-33); Mean Corpuscular Volume 86.0 fl (82-101); Nucleated Red Blood Cells % 0 %; Platelet Count 289 10^3/cmm (157-399); Red Blood Count 3.71 10^6/uL (3.85-5.65); White Blood Count 6.78 10^3/uL (3.29-11.43)
[2024-09-20 09:52] LABS: Alanine Aminotransferase 16 U/L (0-41); Albumin Level 3.7 g/dL (3.5-5.2); Alkaline Phosphatase 78 U/L (40-130); Anion Gap 16.3 (5-19); Aspartate Amino Transferase 16 U/L (0-40); Blood Urea Nitrogen 22 mg/dL (8-23); Calcium 9.0 mg/dL (8.5-10.5); Carbon Dioxide 22 mmol/L (22-29); Chloride 102 mmol/L (98-107); Creatinine Clr Calc Pharmacy 57.1988; Globulin 4.0 g/dL (1.3-4.6); Glucose 91 mg/dL (65-115); Osmolality Calculated 285 mOsm/kg (285-295); Potassium 4.3 mmol/L (3.5-5.1); Sodium 136 mmol/L (136-145); Thyroid Stimulating Hormone 2.61 uIU/mL (0.27-4.20); Total Protein 7.7 g/dL (6.6-8.7)
[2024-09-20] MEDS: pembrolizumab 200 MG in sodium chloride 0.9% 250 ML 516 MG IV (10:54)
[2024-09-20 11:28] VITALS: BP 138/73; PULSE 68; O2SAT 98
== END 2024-09-20 23:59 | disposition home or self-care (01) ==
LOC: ONCMED 09:01
PROVIDERS: Internal Medicine; PCP Family Medicine; Visit Provider Nurse Practitioner Family
DX: Z51.12 Encounter for antineoplastic immunotherapy (principal); C64.1 Malignant neoplasm of right kidney, except renal pelvis; C61 Malignant neoplasm of prostate; Z79.899 Other long term (current) drug therapy; F17.210 Nicotine dependence, cigarettes, uncomplicated; N28.9 Disorder of kidney and ureter, unspecified
CPT/HCPCS: 80053; 83615; 84443; 85025; 96413; 99214; J7050; J9271

== ENCOUNTER 2024-09-26 10:53 | Oncology outpatient (recurring) (ONCR) | payer MEDICARE, OTHER, SELFPAY ==
[2024-09-26] MEDS: leuprolide 22.5 mg Kit IM (11:21)
[2024-09-26 11:25] VITALS: BP 141/68; PULSE 98; TEMP 36.1; O2SAT 97
== END 2024-10-06 23:59 | disposition home or self-care (01) ==
PROVIDERS: PCP Family Medicine; Visit Provider Nurse Practitioner Family
DX: Z51.11 Encounter for antineoplastic chemotherapy (principal); C61 Malignant neoplasm of prostate; Z79.899 Other long term (current) drug therapy
CPT/HCPCS: 96402; J9217

== ENCOUNTER 2024-10-11 13:48 | Oncology outpatient (recurring) (ONCR) | payer MEDICARE, OTHER, SELFPAY ==
[2024-10-11 14:11] LABS: Hematocrit 35.2 % (37-53); Hemoglobin 11.20 g/dL (11.27-16.99); Mean Corpuscular HGB Conc 31.8 g/dL (30-55); Mean Corpuscular Hemoglobin 26.9 pg (27-33); Mean Corpuscular Volume 84.6 fl (82-101); Nucleated Red Blood Cells % 0 %; Platelet Count 258 10^3/cmm (157-399); Red Blood Count 4.16 10^6/uL (3.85-5.65); White Blood Count 8.64 10^3/uL (3.29-11.43)
[2024-10-11 14:49] LABS: Alanine Aminotransferase 20 U/L (0-41); Albumin Level 3.8 g/dL (3.5-5.2); Alkaline Phosphatase 116 U/L (40-130); Anion Gap 18.8 (5-19); Aspartate Amino Transferase 17 U/L (0-40); Blood Urea Nitrogen 13 mg/dL (8-23); Calcium 9.1 mg/dL (8.5-10.5); Carbon Dioxide 21 mmol/L (22-29); Chloride 102 mmol/L (98-107); Creatinine Clr Calc Pharmacy 65.8883; Globulin 3.6 g/dL (1.3-4.6); Glucose 219 mg/dL (65-115); Osmolality Calculated 291 mOsm/kg (285-295); Potassium 4.8 mmol/L (3.5-5.1); Sodium 137 mmol/L (136-145); Thyroid Stimulating Hormone 2.32 uIU/mL (0.27-4.20); Total Protein 7.4 g/dL (6.6-8.7)
[2024-10-11] MEDS: pembrolizumab 200 MG in sodium chloride 0.9% 250 ML 516 MG IV (15:41)
== END 2024-10-11 23:59 | disposition home or self-care (01) ==
PROVIDERS: Internal Medicine Medical Oncology; PCP Family Medicine; Visit Provider Nurse Practitioner
DX: Z51.12 Encounter for antineoplastic immunotherapy (principal); C64.1 Malignant neoplasm of right kidney, except renal pelvis; C61 Malignant neoplasm of prostate; F17.210 Nicotine dependence, cigarettes, uncomplicated; M25.50 Pain in unspecified joint; Z92.3 Personal history of irradiation; Z79.899 Other long term (current) drug therapy
CPT/HCPCS: 80053; 84443; 85025; 99214; A4222; J7050; J9271

== ENCOUNTER 2024-11-01 11:58 | Oncology outpatient (recurring) (ONCR) | payer MEDICARE, OTHER, SELFPAY ==
[2024-11-01 12:22] LABS: Hematocrit 35.2 % (37-53); Hemoglobin 11.30 g/dL (11.27-16.99); Mean Corpuscular HGB Conc 32.1 g/dL (30-55); Mean Corpuscular Hemoglobin 26.8 pg (27-33); Mean Corpuscular Volume 83.4 fl (82-101); Nucleated Red Blood Cells % 0 %; Platelet Count 273 10^3/cmm (157-399); Red Blood Count 4.22 10^6/uL (3.85-5.65); White Blood Count 8.41 10^3/uL (3.29-11.43)
[2024-11-01 12:41] LABS: Alanine Aminotransferase 19 U/L (0-41); Albumin Level 4.0 g/dL (3.5-5.2); Alkaline Phosphatase 118 U/L (40-130); Anion Gap 16.7 (5-19); Aspartate Amino Transferase 12 U/L (0-40); Blood Urea Nitrogen 18 mg/dL (8-23); Calcium 9.1 mg/dL (8.5-10.5); Carbon Dioxide 23 mmol/L (22-29); Chloride 99 mmol/L (98-107); Globulin 3.4 g/dL (1.3-4.6); Glucose 229 mg/dL (65-115); Osmolality Calculated 287 mOsm/kg (285-295); Potassium 4.7 mmol/L (3.5-5.1); Sodium 134 mmol/L (136-145); Thyroid Stimulating Hormone 3.54 uIU/mL (0.27-4.20); Total Protein 7.4 g/dL (6.6-8.7)
[2024-11-01] MEDS: pembrolizumab 200 MG in sodium chloride 0.9% 250 ML 516 MG IV (13:51)
[2024-11-01 14:29] VITALS: BP 143/84; PULSE 96; RESP 17; TEMP 36; O2SAT 99
== END 2024-11-01 23:59 | disposition home or self-care (01) ==
PROVIDERS: PCP Family Medicine; Visit Provider Nurse Practitioner
DX: Z51.12 Encounter for antineoplastic immunotherapy (principal); C61 Malignant neoplasm of prostate; C64.1 Malignant neoplasm of right kidney, except renal pelvis; F17.210 Nicotine dependence, cigarettes, uncomplicated; R21 Rash and other nonspecific skin eruption; Z79.899 Other long term (current) drug therapy
CPT/HCPCS: 80053; 84443; 85025; 96413; 99214; A4222; J7050; J9271

== ENCOUNTER 2024-11-22 11:56 | Oncology outpatient (recurring) (ONCR) | payer MEDICARE, OTHER, SELFPAY ==
[2024-11-22 12:17] LABS: Hematocrit 36.1 % (37-53); Hemoglobin 11.50 g/dL (11.27-16.99); Mean Corpuscular HGB Conc 31.9 g/dL (30-55); Mean Corpuscular Hemoglobin 27.3 pg (27-33); Mean Corpuscular Volume 85.5 fl (82-101); Nucleated Red Blood Cells % 0 %; Platelet Count 272 10^3/cmm (157-399); Red Blood Count 4.22 10^6/uL (3.85-5.65); White Blood Count 8.77 10^3/uL (3.29-11.43)
[2024-11-22 12:44] LABS: Alanine Aminotransferase 27 U/L (0-41); Albumin Level 3.9 g/dL (3.5-5.2); Alkaline Phosphatase 123 U/L (40-130); Anion Gap 15.6 (5-19); Aspartate Amino Transferase 17 U/L (0-40); Blood Urea Nitrogen 16 mg/dL (8-23); Calcium 8.9 mg/dL (8.5-10.5); Carbon Dioxide 23 mmol/L (22-29); Chloride 101 mmol/L (98-107); Globulin 3.6 g/dL (1.3-4.6); Glucose 244 mg/dL (65-115); Osmolality Calculated 289 mOsm/kg (285-295); Potassium 4.6 mmol/L (3.5-5.1); Sodium 135 mmol/L (136-145); Thyroid Stimulating Hormone 3.01 uIU/mL (0.27-4.20); Total Protein 7.5 g/dL (6.6-8.7)
[2024-11-22] MEDS: pembrolizumab 200 MG in sodium chloride 0.9% 250 ML 516 MG IV (14:23)
[2024-11-22 14:58] VITALS: BP 144/81; PULSE 88; RESP 18; TEMP 36; O2SAT 97
== END 2024-11-22 23:59 | disposition home or self-care (01) ==
PROVIDERS: Internal Medicine Medical Oncology; PCP Family Medicine; Visit Provider Nurse Practitioner
DX: Z51.12 Encounter for antineoplastic immunotherapy (principal); C61 Malignant neoplasm of prostate; C64.1 Malignant neoplasm of right kidney, except renal pelvis; Z79.899 Other long term (current) drug therapy; Z79.52 Long term (current) use of systemic steroids
CPT/HCPCS: 36415; 80053; 84443; 85025; 96375; 96413; A4222; J1100; J3490; J7050; J9271

== ENCOUNTER 2024-12-13 15:51 | Outpatient (CLI) | payer MEDICARE, OTHER, SELFPAY ==
--- NOTE | 2024-12-13 16:02 | XR_ITS ---
WS: [id number] Left ankle, 3 views, 12/13/2024 Clinical Data: LEFT ANKLE PAIN Comparison: None. Findings: No fractures or dislocations are seen. There is minimal osteoarthritis of the medial malleolus. The ankle mortise is normal. The talus and calcaneus are unremarkable. Minimal swelling is seen over the medial and lateral malleolus. There is a plantar spur and an Achilles spur. XR/XR ankle LT min 3V* [id number] Impression: 1. Negative for fracture or dislocation. 2. Minimal swelling over medial and lateral malleolus. 3. 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
== END 2024-12-13 15:52 | disposition home or self-care (01) ==
LOC: RAD 15:57
PROVIDERS: PCP Family Medicine; Visit Provider Family Medicine
DX: M25.572 Pain in left ankle and joints of left foot (principal); M77.32 Calcaneal spur, left foot
CPT/HCPCS: 73610

== ENCOUNTER 2024-12-19 09:55 | Oncology outpatient (recurring) (ONCR) | payer MEDICARE, OTHER, SELFPAY ==
[2024-12-19 11:04] LABS: Hematocrit 32.7 % (37-53); Hemoglobin 10.30 g/dL (11.27-16.99); Mean Corpuscular HGB Conc 31.5 g/dL (30-55); Mean Corpuscular Hemoglobin 26.2 pg (27-33); Mean Corpuscular Volume 83.2 fl (82-101); Nucleated Red Blood Cells % 0 %; Platelet Count 328 10^3/cmm (157-399); Red Blood Count 3.93 10^6/uL (3.85-5.65); White Blood Count 10.89 10^3/uL (3.29-11.43)
[2024-12-19 11:39] LABS: Alanine Aminotransferase 20 U/L (0-41); Albumin Level 3.8 g/dL (3.5-5.2); Alkaline Phosphatase 103 U/L (40-130); Anion Gap 16.8 (5-19); Aspartate Amino Transferase 11 U/L (0-40); Blood Urea Nitrogen 35 mg/dL (8-23); Calcium 8.8 mg/dL (8.5-10.5); Carbon Dioxide 25 mmol/L (22-29); Chloride 102 mmol/L (98-107); Creatinine Clr Calc Pharmacy 58.7083; Globulin 3.0 g/dL (1.3-4.6); Glucose 193 mg/dL (65-115); Osmolality Calculated 301 mOsm/kg (285-295); Potassium 4.8 mmol/L (3.5-5.1); Sodium 139 mmol/L (136-145); Total Protein 6.8 g/dL (6.6-8.7)
[2024-12-19 11:40] LABS: Prostate Specific Antigen < 0.014 ng/mL (0-4)
[2024-12-19] MEDS: pembrolizumab 200 MG in sodium chloride 0.9% 250 ML 516 MG IV (12:39)
[2024-12-19] MEDS: leuprolide 22.5 mg Kit IM (12:48)
[2024-12-19 13:14] VITALS: BP 171/84; PULSE 77; RESP 17; TEMP 36.9; O2SAT 99
== END 2024-12-19 23:59 | disposition home or self-care (01) ==
PROVIDERS: Internal Medicine Medical Oncology; PCP Family Medicine; Visit Provider Nurse Practitioner
DX: Z51.11 Encounter for antineoplastic chemotherapy (principal); Z51.12 Encounter for antineoplastic immunotherapy; C61 Malignant neoplasm of prostate; C64.1 Malignant neoplasm of right kidney, except renal pelvis; F17.210 Nicotine dependence, cigarettes, uncomplicated; Z79.899 Other long term (current) drug therapy; Z92.3 Personal history of irradiation; Z90.5 Acquired absence of kidney
CPT/HCPCS: 80053; 84153; 84403; 85025; 96402; 96413; 99214; A4222; J7050; J9217; J9271

== ENCOUNTER → 2024-12-26 08:00 | Outpatient (BNVA) | payer MEDICARE, OTHER, SELFPAY | PROVIDERS: PCP Family Medicine; Visit Provider Dermatology | DX: L85.3 Xerosis cutis (principal); L30.0 Nummular dermatitis; L82.1 Other seborrheic keratosis; L81.4 Other melanin hyperpigmentation; D69.2 Other nonthrombocytopenic purpura; L57.0 Actinic keratosis | CPT/HCPCS: 17000; 99204 ==

== ENCOUNTER 2025-01-06 09:20 | Oncology outpatient (recurring) (ONCR) | payer MEDICARE, OTHER, SELFPAY ==
--- NOTE | 2025-01-06 09:30 | PETR_ITS ---
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 Then, PET images were obtained. Attenuation corrected images were constructed using the CT scan. Fused images of PET and CT were reviewed. The standardized uptake values (SUV) reported below are maximum values within a region of interest, expressed in gm/ml. Exam includes orbital meatal line to mid-thigh. SUV normalization method: BodyWeight Radiopharmaceutical: 11.28 mCi F-18 FDG (Fluorodeoxyglucose), IV. Time of imaging post radiopharmaceutical administration: 47 minutes Injection site: right ac COMPARISON: PT PET skull to thigh SUBS [id number] 07/08/2024 1:11 PM FINDINGS: Brain: Visualized brain has normal physiologic uptake. Pharynx: No abnormal uptake. Larynx: No abnormal uptake. Thyroid: Increased associated with a small right thyroid nodule, now with SUV max of 4.2, previously 2.6. Lungs, pleura and trachea: No abnormal uptake. Heart: Normal physiologic uptake. Mediastinal space: No abnormal uptake. Liver: No abnormal uptake. Gallbladder and biliary ducts: No abnormal uptake. Pancreas: No abnormal uptake. Spleen: No abnormal uptake. Adrenal glands: No abnormal uptake. Kidneys and ureters: Status post right nephrectomy. No abnormal uptake. Stomach and bowel: No abnormal uptake. Vasculature: No abnormal uptake. Lymph nodes: No abnormal uptake. No lymphadenopathy in the head, neck, chest, abdomen, pelvis, and extremities. Skeleton: No abnormal uptake in the visualized axial and appendicular skeleton. Soft tissues: No abnormal uptake in the visualized head, neck, chest, abdomen, pelvis, and extremities. METRICS: Mediastinal blood pool: SUV max = 2.8 Liver uptake: SUV max = 2.9 PET/PET skull to thigh SUBS [id number] IMPRESSION: 1. No evidence FDG-avid metastatic disease. 2. Increased associated with a small right thyroid nodule, now with SUV max of 4.2, previously 2.6.
== END 2025-01-06 23:59 | disposition home or self-care (01) ==
LOC: ONCMED 09:20
PROVIDERS: PCP Family Medicine; Visit Provider Nurse Practitioner
DX: Z51.12 Encounter for antineoplastic immunotherapy (principal); C61 Malignant neoplasm of prostate; C64.1 Malignant neoplasm of right kidney, except renal pelvis; F17.210 Nicotine dependence, cigarettes, uncomplicated; R21 Rash and other nonspecific skin eruption; Z79.899 Other long term (current) drug therapy; Z51.11 Encounter for antineoplastic chemotherapy
CPT/HCPCS: 78815; A9552

== ENCOUNTER 2025-01-09 08:52 | Oncology outpatient (recurring) (ONCR) | payer MEDICARE, OTHER, SELFPAY ==
[2025-01-09 09:22] LABS: Hematocrit 33.4 % (37-53); Hemoglobin 10.20 g/dL (11.27-16.99); Mean Corpuscular HGB Conc 30.5 g/dL (30-55); Mean Corpuscular Hemoglobin 25.9 pg (27-33); Mean Corpuscular Volume 84.8 fl (82-101); Nucleated Red Blood Cells % 0 %; Platelet Count 260 10^3/cmm (157-399); Red Blood Count 3.94 10^6/uL (3.85-5.65); White Blood Count 6.91 10^3/uL (3.29-11.43)
[2025-01-09 09:48] LABS: Alanine Aminotransferase 16 U/L (0-41); Albumin Level 3.8 g/dL (3.5-5.2); Alkaline Phosphatase 109 U/L (40-130); Anion Gap 14.6 (5-19); Aspartate Amino Transferase 11 U/L (0-40); Blood Urea Nitrogen 15 mg/dL (8-23); Calcium 9.0 mg/dL (8.5-10.5); Carbon Dioxide 24 mmol/L (22-29); Chloride 102 mmol/L (98-107); Globulin 3.2 g/dL (1.3-4.6); Glucose 275 mg/dL (65-115); Osmolality Calculated 293 mOsm/kg (285-295); Potassium 4.6 mmol/L (3.5-5.1); Sodium 136 mmol/L (136-145); Thyroid Stimulating Hormone 3.20 uIU/mL (0.27-4.20); Total Protein 7.0 g/dL (6.6-8.7)
[2025-01-09] MEDS: pembrolizumab 200 MG in sodium chloride 0.9% 250 ML 516 MG IV (11:42)
[2025-01-09 12:27] VITALS: BP 179/76; PULSE 77; RESP 17; TEMP 36; O2SAT 99
== END 2025-01-09 23:59 | disposition home or self-care (01) ==
PROVIDERS: Internal Medicine Medical Oncology; PCP Family Medicine; Visit Provider Nurse Practitioner
DX: Z51.12 Encounter for antineoplastic immunotherapy (principal); C64.1 Malignant neoplasm of right kidney, except renal pelvis; C61 Malignant neoplasm of prostate; F17.210 Nicotine dependence, cigarettes, uncomplicated; Z79.899 Other long term (current) drug therapy; Z92.3 Personal history of irradiation; Z90.5 Acquired absence of kidney; Z79.818 Long term (current) use of other agents affecting estrogen receptors and estrogen levels
CPT/HCPCS: 80053; 84443; 85025; 96413; 99214; A4222; J7050; J9271

== ENCOUNTER 2025-01-30 10:29 | Oncology outpatient (recurring) (ONCR) | payer MEDICARE, OTHER, SELFPAY ==
[2025-01-30 10:52] LABS: Hematocrit 33.5 % (37-53); Hemoglobin 10.60 g/dL (11.27-16.99); Mean Corpuscular HGB Conc 31.6 g/dL (30-55); Mean Corpuscular Hemoglobin 26.2 pg (27-33); Mean Corpuscular Volume 82.9 fl (82-101); Nucleated Red Blood Cells % 0 %; Platelet Count 259 10^3/cmm (157-399); Red Blood Count 4.04 10^6/uL (3.85-5.65); White Blood Count 8.04 10^3/uL (3.29-11.43)
[2025-01-30 11:16] VITALS: BP 160/79; PULSE 96; RESP 18; TEMP 36.1; O2SAT 96
[2025-01-30 11:22] LABS: Alanine Aminotransferase 22 U/L (0-41); Albumin Level 4.0 g/dL (3.5-5.2); Alkaline Phosphatase 132 U/L (40-130); Anion Gap 14.6 (5-19); Aspartate Amino Transferase 15 U/L (0-40); Blood Urea Nitrogen 18 mg/dL (8-23); Calcium 9.0 mg/dL (8.5-10.5); Carbon Dioxide 25 mmol/L (22-29); Chloride 102 mmol/L (98-107); Globulin 3.3 g/dL (1.3-4.6); Glucose 213 mg/dL (65-115); Osmolality Calculated 292 mOsm/kg (285-295); Potassium 4.6 mmol/L (3.5-5.1); Sodium 137 mmol/L (136-145); Thyroid Stimulating Hormone 3.53 uIU/mL (0.27-4.20); Total Protein 7.3 g/dL (6.6-8.7)
[2025-01-30] MEDS: pembrolizumab 200 MG in sodium chloride 0.9% 250 ML 516 MG IV (12:11)
[2025-01-30 12:58] VITALS: BP 131/80; PULSE 79; RESP 18; TEMP 36.1; O2SAT 96
== END 2025-01-30 23:59 | disposition home or self-care (01) ==
PROVIDERS: Nurse Practitioner; PCP Family Medicine; Visit Provider Internal Medicine Medical Oncology
DX: Z51.12 Encounter for antineoplastic immunotherapy (principal); C61 Malignant neoplasm of prostate; C64.1 Malignant neoplasm of right kidney, except renal pelvis; F17.210 Nicotine dependence, cigarettes, uncomplicated; R21 Rash and other nonspecific skin eruption; Z79.899 Other long term (current) drug therapy; Z51.11 Encounter for antineoplastic chemotherapy
CPT/HCPCS: 80053; 84443; 85025; 96413; 99214; A4222; J7050; J9271

== ENCOUNTER 2025-02-20 09:46 | Oncology outpatient (recurring) (ONCR) | payer MEDICARE, OTHER, SELFPAY ==
[2025-02-20 10:10] LABS: Hematocrit 35.1 % (37-53); Hemoglobin 10.90 g/dL (11.27-16.99); Mean Corpuscular HGB Conc 31.1 g/dL (30-55); Mean Corpuscular Hemoglobin 26.0 pg (27-33); Mean Corpuscular Volume 83.8 fl (82-101); Nucleated Red Blood Cells % 0 %; Platelet Count 243 10^3/cmm (157-399); Red Blood Count 4.19 10^6/uL (3.85-5.65); White Blood Count 7.44 10^3/uL (3.29-11.43)
[2025-02-20 10:38] LABS: Alanine Aminotransferase 22 U/L (0-41); Albumin Level 4.0 g/dL (3.5-5.2); Alkaline Phosphatase 132 U/L (40-130); Anion Gap 16.2 (5-19); Aspartate Amino Transferase 16 U/L (0-40); Blood Urea Nitrogen 16 mg/dL (8-23); Calcium 9.2 mg/dL (8.5-10.5); Carbon Dioxide 23 mmol/L (22-29); Chloride 101 mmol/L (98-107); Globulin 3.3 g/dL (1.3-4.6); Glucose 217 mg/dL (65-115); Osmolality Calculated 290 mOsm/kg (285-295); Potassium 4.2 mmol/L (3.5-5.1); Sodium 136 mmol/L (136-145); Thyroid Stimulating Hormone 4.18 uIU/mL (0.27-4.20); Total Protein 7.3 g/dL (6.6-8.7)
[2025-02-20] MEDS: pembrolizumab 200 MG in sodium chloride 0.9% 250 ML 516 MG IV (11:18)
[2025-02-20 11:58] VITALS: BP 170/79; PULSE 84; TEMP 36.3; O2SAT 99
== END 2025-02-20 23:59 | disposition home or self-care (01) ==
PROVIDERS: PCP Family Medicine; Visit Provider Nurse Practitioner
DX: Z51.12 Encounter for antineoplastic immunotherapy (principal); C64.1 Malignant neoplasm of right kidney, except renal pelvis; C61 Malignant neoplasm of prostate; R03.0 Elevated blood-pressure reading, without diagnosis of hypertension; Z79.899 Other long term (current) drug therapy; Z92.3 Personal history of irradiation; Z90.5 Acquired absence of kidney; Z87.891 Personal history of nicotine dependence
CPT/HCPCS: 36415; 80053; 84443; 85025; 96413; 99214; A4222; J7050; J9271